=== PATIENT | male | born 1950 | race Caucasian/White ===

== ENCOUNTER 2017-02-24 09:17 | Inpatient (IN) | payer BC ==
[~2017-02-24] VITALS: Ht 180.3 cm; Wt 90.4 kg
[~2017-02-24 09:17] MED LIST: AMLO-145 PO; CLON-412 PO; LEVE500T34 PO; TRAZ300T15 PO
[2017-02-24] MEDS ORDERED: SOD CHLORIDE 0.9% 1,000 ML IV STA (09:31)
[2017-02-24 09:52] LABS: ADD SCAN DIFF NO
[2017-02-24 09:53] LABS: BASOPHILS % 0.4 % (0.0-2.0); EOSINOPHILS # 0.4 10^3/ul (0.0-0.5); EOSINOPHILS % 4.4 % (0.0-7.0); HEMATOCRIT 26.7 % (42.0-52.0); HEMOGLOBIN 8.7 g/dl (14.0-18.0); LYMPHOCYTES % 20.3 % (15.0-51.0); MEAN CORPUSCULAR HEMOGLOBIN 30.3 pg (29.0-33.0); MEAN CORPUSCULAR HGB CONC 32.6 g/dl (32.0-37.0); MEAN PLATELET VOLUME 10.7 fl (7.4-10.4); MONOCYTE # 0.4 10^3/ul (0.3-0.9); MONOCYTES % 4.3 % (0.0-11.0); NEUTROPHIL # 6.9 10^3/ul (1.6-7.5); NEUTROPHILS % 70.3 % (39.0-77.0); PLATELET COUNT 266 10^3/UL (140-415); RED BLOOD COUNT 2.87 10^6/ul (4.70-6.10); RED CELL DISTRIBUTION WIDTH 14.1 % (11.5-14.5); WHITE BLOOD COUNT 9.8 10^3/ul (4.8-10.8)
[2017-02-24 10:12] LABS: ALANINE AMINOTRANSFERASE 23 IU/L (13-69); ALBUMIN 5.2 g/dl (3.3-4.9); ALBUMIN/GLOBULIN RATIO 1.67; ALKALINE PHOSPHATASE 155 IU/L (42-121); ANION GAP 24 (8-16); ASPARTATE AMINO TRANSFERASE 13 IU/L (15-46); BLOOD UREA NITROGEN 56 mg/dl (7-20); CALCIUM 9.8 mg/dl (8.4-10.2); CARBON DIOXIDE 14 mmol/L (21-31); CHLORIDE 115 mmol/L (97-110); CREATININE 5.41 mg/dl (0.61-1.24); GLUCOSE 105 mg/dl (70-220); POTASSIUM 4.4 mmol/L (3.5-5.1); SODIUM 149 mmol/L (135-144); TOTAL PROTEIN 8.3 g/dl (6.1-8.1)
[2017-02-24 10:20] LABS: INR 0.96; PROTIME 12.8 Sec (12.2-14.2)
[2017-02-24 10:21] LABS: PARTIAL THROMBOPLASTIN TIME 33.2 Sec (25.0-35.0)
[2017-02-24 10:26] LABS: TROPONIN-I < 0.012 ng/ml (0.00-0.12)
[2017-02-24] MEDS ORDERED: ACETAMINOPHEN 325 MG TAB PO PRN (10:30)
[2017-02-24] MEDS ORDERED: ONDANSETRON 4 MG INJ IV PRN (10:30)
[2017-02-24] MEDS ORDERED: ALLO100T PO (10:36)
[2017-02-24] MEDS ORDERED: FURO20TA3 PO (10:37)
[2017-02-24] MEDS ORDERED: CLON-412 PO (10:38)
[2017-02-24] MEDS ORDERED: TRAM-40 PO (10:38)
[2017-02-24] MEDS ORDERED: TRAZ150T65 PO (10:39)
[2017-02-24] MEDS ORDERED: LEVE100018 PO (10:40)
[2017-02-24] MEDS ORDERED: SERT50TA PO (10:40)
[2017-02-24] MEDS ORDERED: LEVE500S9 PO (10:40)
[2017-02-24] MEDS ORDERED: FLO1 PO (10:41)
[2017-02-24] MEDS ORDERED: AMLO5TAB4 PO (10:41)
[2017-02-24] MEDS ORDERED: PANT40TA3 PO (10:41)
[2017-02-24 10:52] LABS: AADO2 Arterial 30.5 mmHg (7.0-24.0); Allen Test ACCEPTAB; Arterial Base Excess -11.6 mmol/L (-3.0-3); Arterial COHb 0.3 % (0.0-3.0); Arterial Fraction of Oxyhgb 94.2 % (93.0-99.0); Arterial HCO3 13.9 mmol/L (22.0-26.0); Arterial MetHb 0.3 % (0.0-1.5); Arterial Total Hemglobin 8.3 g/dl (12.0-18.0); MODE ROOM AIR
--- NOTE | 2017-02-24 11:26 | RADRPT ---
PROCEDURE: Retroperitoneal US. CLINICAL INDICATION: Renal insufficiency TECHNIQUE: Multiple sonographic images of the kidneys and retroperitoneum were obtained. The imag es were reviewed on a PACS workstation. COMPARISON: 03/28/2013 FINDINGS: The right kidney measures 11.0 cm. The left kidney measures 11.3 cm. There is increased echogenicity of the kidneys. There are multiple bilateral kidney cysts, the largest in the right kidney measures 2.3 cm and the l argest in the left kidney measures 3.9 cm. There is no evidence of hydronephrosis. The urinary bladder is normal. IMPRESSION: Echogenic kidneys, consistent with medical renal disease. Bilateral simple kidney cysts. No evidence of hydronephrosis. RPTAT: AA .Alex Jin MD, Date Time Electronically viewed and signed by .Alex Jin MD, on 02/24/2017 11:25 .S/
[2017-02-24] MEDS ORDERED: ONDANSETRON (ODT) 4 MG TAB ODT STA (11:37)
[2017-02-24] MEDS ORDERED: HYDROCODONE/APAP (10/325) TAB PO ONE (12:00)
[2017-02-24] MEDS ORDERED: traMADol 50 MG TAB PO PRN (12:00)
--- NOTE | 2017-02-24 12:09 | CONS ---
DATE OF ADMISSION: 02/24/2017 DATE OF CONSULTATION: 02/24/2017 TYPE OF CONSULTATION: Nephrology REFERRING PHYSICIAN: Misty Theodore MD Thank you very much for allowing me to evaluate this 66-year-old male admitted via the ER with worse trell renal function. HISTORICAL EVENTS: As you well know, this patient has been under my care at least for the last 8 ye ars with respect to progressive impairment of renal function. He was last seen by me on 02/10/2017 and at that time indicated that he had changed his insurance plan to [employer] and that Dr. Nikhil ortega would be caring for him. When seeing him on the 02/10/2017, he indicated he had moderate urina ry frequency without dysuria. Denied flank pain, fever or chills. Denied cough, wheezing or shortn ess of breath, lightheadedness or dizziness. Of note was that laboratory studies that I had obtaine d in the past, in 04/2016 and at that time his BUN was 56, creatinine was 3.5. Also, at that time h is hematocrit was 31.8. Subsequent to my exam and evaluation, he did obtain followup laboratory richie dies on 02/18/2017 and at that time his BUN was 77, creatinine was 5.15. Iron studies were unreveal ing. Hematocrit was 24.3. It is because of the change in his renal function that hospitalization w as recommended. He has had no symptoms of gastrointestinal bleeding. Has not been taking any nonst eroidals. He denies fever or chills. Urinary frequency has remained problematic. PRESENT MEDICATIONS: Include: 1. Florinef 0.1 mg per day. 2. Vitamin D3 2000 units per day. 3. Multivite 1 per day. 4. Furosemide 20 mg every other day. 5. B12 1000 mg per day. 6. Folic acid 1 mg per day. 7. Amlodipine 5 mg per day. 8. Protonix 40 mg per day. 9. Keppra 500 mg t.i.d. 10. Allopurinol 100 mg per day. 11. Klonopin 1 mg at night. 12. Sertraline 25 mg 2 tablets daily. 13. Trazodone 150 mg at night. 14. Tramadol 50 mg t.i.d. PAST MEDICAL HISTORY: Includes: 1. 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 His creatinine was 2.0 in 04/2002. Repeat imaging studies had revealed no obstruction. 2. Hypertension of at least 12 to 15 years' duration. 3. Depression. 4. History of epididymitis. 5. Last colonoscopy in 1997 recommended he obtain the same in 11/2015. This was not obtained. 6. History of BPH. 7. History of testosterone deficiency. The patient elected not to proceed with either transdermal or parenteral testosterone. 8. Anemia secondary to chronic renal insufficiency. 9. Prior history of chronic alcoholism. 10. Seizure disorder with last MRI obtained in 07/2013. This is secondary to tuberous sclerosis. 11. History of hyperkalemia not being able to tolerate JOHN or ARBs or beta blockers. 12. Secondary hyperparathyroidism. 13. Known fatty liver. 14. History of gout, now quiescent. 15. Traumatic fracture of the right humerus. 16. Peripheral neuropathy secondary to alcohol and fracture of the left humerus related to a fall i n 12/2016. ALLERGIES: NONE. FAMILY HISTORY: Mom at 88 related to old age. Brother of amoebic dysentery, he was retar ded. SOCIAL HISTORY: Has a life partner. PHYSICAL EXAMINATION: GENERAL: Chronically ill male. VITAL SIGNS: Blood pressure 124/78, respirations were 18, he was afebrile. EYES: Extraocular muscles were full. NOSE, MOUTH, AND THROAT: Normal. NECK: Supple. There was no jugular venous distention, thyroid enlargement or adenopathy. LUNGS: Clear. HEART: Rhythm regular, I/ systolic murmur. No third or fourth sound. ABDOMEN: Nontender. Liver and spleen were not palpable. There was no tenderness. EXTREMITIES: Brawny edema. Peripheral pulses were reduced. NEUROLOGIC: No lateralizing motor weakness. 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 PLAN: Postvoid bladder ultrasound, renal ultrasound, hydration. Observe renal function. If no sig nificant change, will need temporary and permanent access prior to discharge. GI evaluation will be needed if stools are negative for occult blood. Procrit will be started and we will follow with yo sravanthi. Dictated By: FRED NICE/FOZIA Conf#: [id number] DID#: [id number]
--- NOTE | 2017-02-24 12:26 | ERA ---
ER Documentation Chief Complaint Date/Time DATE: 02/24/17 TIME: 12:23 Chief Complaint ELEVATED BUN/CREA, LOW H/H, WEAKNESS, DIZZINESS HPI Patient is a 66-year-old male with hypertension who presents with "kidney failure and chronic anemia". The patient was sent by his doctor Dr. Berumen and Dr. Anthony for admission. The patient will need dialysis. The patient feels weak dizzy and "lethargic". He says the symptoms come and go every 2-3 years. Upon review of old medical records the patient had one previous visit to the ER in 2007. ROS All systems reviewed and are negative except as per history of present illness. Medications Home Meds Reported Medications Fludrocortisone* (Florinef*) 0.1 Mg Tab, 0.1 MG PO DAILY, TAB 02/24/17 Pantoprazole* (Protonix*) 40 Mg Tablet.dr, 40 MG PO DAILY, TAB 02/24/17 Amlodipine Besylate* (Norvasc*) 5 Mg Tablet, 5 MG PO DAILY, TAB 02/24/17 Sertraline Hcl* (Zoloft*) 50 Mg Tablet, 50 MG PO QHS, #30 TAB 02/24/17 Levetiracetam* (Keppra*) 1,000 Mg Tablet, 1000 MG PO QHS, TAB 02/24/17 Levetiracetam* (Keppra*) 500 Mg/5 Ml Solution, 500 MG PO QAM, BOTTLE 02/24/17 Trazodone Hcl* (Trazodone Hcl*) 150 Mg Tablet, 150 MG PO QHS, #30 TAB 02/24/17 Clonazepam* (Klonopin*) 1 Mg Tablet, 1 MG PO QHS, TAB 02/24/17 Tramadol Hcl* (Ultram*) 50 Mg Tablet, 50 MG PO Q6H Y for PAIN, TAB 02/24/17 Furosemide* (Furosemide*) 20 Mg Tablet, 20 MG PO EVERY TUESDAY, #60 TAB 02/24/17 Allopurinol* (Allopurinol*) 100 Mg Tablet, 100 MG PO DAILY, TAB 02/24/17 Discontinued Reported Medications Clonazepam* (Klonopin*) 1 Mg Tablet, 1 MG PO HS 03/28/13 Levetiracetam* (Keppra XR*) 500 Mg Tab.sr.24h, 500 MG PO BID 03/28/13 Amlodipine Besylate* (Amlodipine Besylate*) 5 Mg Tablet, 5 MG PO HS 03/28/13 Trazodone Hcl* (Trazodone Hcl*) 300 Mg Tablet, 300 MG PO HS 03/28/13 Allergies Allergies: Coded Allergies: No Known Allergy (Verified , 02/24/17) PMhx/Soc Medical and Surgical Hx: pt denies Medical Hx, pt denies Surgical Hx History of Surgery: Yes (LIZETH FOOT SURGERY( WEB FOOT)) Anesthesia Reaction: No Hx Neurological Disorder: No Hx Respiratory Disorders: No Hx Cardiac Disorders: Yes (HTN) Hx Psychiatric Problems: No Hx Miscellaneous Medical Probl: Yes (EPILEPSY) Hx Alcohol Use: No Hx Substance Use: No Hx Tobacco Use: No Smoking Status: Never smoker FmHx Family History: No diabetes Physical Exam Vitals Vital Signs Date Time Temp Pulse Resp B/P Pulse Ox O2 Delivery O2 Flow Rate FiO2 02/24/17 11:40 57 18 130/81 98 Room Air 02/24/17 09:38 Nasal Cannula 02/24/17 09:21 97.2 92 17 172/84 98 Physical Exam Const: No acute distress Head: Atraumatic Eyes: Normal Conjunctiva ENT: Normal External Ears, Nose and Mouth. Neck: Full range of motion..~ No meningismus. Resp: Clear to auscultation bilaterally Cardio: Regular rate and rhythm, no murmurs Abd: Soft, non tender, non distended. Normal bowel sounds Skin: No petechiae or rashes Back: No midline or flank tenderness Ext: No cyanosis, or edema Neur: Awake with generalized weakness Result Diagram: 02/24/1740 02/24/17 0940 Results 24 hrs Laboratory Tests Test 02/24/17 09:40 02/24/17 10:37 White Blood Count 9.810^3/ul Red Blood Count 2.8710^6/ul Hemoglobin 8.7g/dl Hematocrit 26.7% Mean Corpuscular Volume 93.0fl Mean Corpuscular Hemoglobin 30.3pg Mean Corpuscular Hemoglobin Concent 32.6g/dl Red Cell Distribution Width 14.1% Platelet Count 37797^3/UL Mean Platelet Volume 10.7fl Neutrophils % 70.3% Lymphocytes % 20.3% Monocytes % 4.3% Eosinophils % 4.4% Basophils % 0.4% Nucleated Red Blood Cells % 0.0/100WBC Neutrophils # 6.910^3/ul Lymphocytes # 2.010^3/ul Monocytes # 0.410^3/ul Eosinophils # 0.410^3/ul Basophils # 0.010^3/ul Nucleated Red Blood Cells # 0.010^3/ul Prothrombin Time 12.8Sec Prothrombin Time Ratio 1.0 INR International Normalized Ratio 0.96 Activated Partial Thromboplast Time 33.2Sec Sodium Level 149mmol/L Potassium Level 4.4mmol/L Chloride Level 115mmol/L Carbon Dioxide Level 14mmol/L Anion Gap 24 Blood Urea Nitrogen 56mg/dl Creatinine 5.41mg/dl Glucose Level 105mg/dl Calcium Level 9.8mg/dl Total Bilirubin 0.0mg/dl Direct Bilirubin 0.00mg/dl Indirect Bilirubin 0.0mg/dl Aspartate Amino Transf (AST/SGOT) 13IU/L Alanine Aminotransferase (ALT/SGPT) 23IU/L Alkaline Phosphatase 155IU/L Troponin I < 0.012ng/ml Total Protein 8.3g/dl Albumin 5.2g/dl Globulin 3.10g/dl Albumin/Globulin Ratio 1.67 Blood Gas Specimen Source Blood arterial Arterial Blood Date Drawn 02/24/2017 10:42:18 AM Arterial Blood pH (Temp corrected) 7.289 Arterial Blood pCO2 (Temp correct) 29.6mmhg Arterial Blood pO2 (Temp corrected) 83.8mmHG Arterial Blood HCO3 13.9mmol/L Arterial Blood Base Excess -11.6mmol/L Arterial Blood Oxygen Saturation 94.8mmHG Stevan Test ACCEPTAB Arterial Blood Gas Puncture Site Right Radial Arterial Blood Carboxyhemoglobin 0.3% Arterial Blood Methemoglobin 0.3% Blood Gas A-a O2 Differential 30.5mmHg Oxyhemoglobin Percent 94.2% Total Hemoglobin 8.3g/dl Blood Gas Temperature 37.0C Blood Gas Modality ROOM AIR FiO2 21.0% Blood Gas Critical Value Read Back DR. CHUN Blood Gas Notified Whom Alexandra Blood Gas Notified Time 02/24/2017 10:52:21 AM Current Medications Medications (Trade) Dose Ordered Sig/Samir Route PRN Reason Start Time Stop Time Status Last Admin Dose Admin Sodium Chloride (NS) 1,000 ml @ 1,000 mls/hr Q1H STAT IV 02/24/17 09:31 02/24/17 10:30 DC 02/24/17 09:45 Ondansetron HCl (Zofran Inj) 4 mg BRIDGE ORDER PRN IV NAUSEA AND/OR VOMITING 02/24/17 10:30 02/25/17 10:29 Acetaminophen (Tylenol Tab) 650 mg ER BRIDGE PRN PO MILD PAIN/FEVER 02/24/17 10:30 02/25/17 10:29 Acetaminophen/ Hydrocodone Bitart ([place] (10/325)) 1 tab ONCE ONCE PO 02/24/17 12:00 02/24/17 12:01 DC 02/24/17 11:49 Ondansetron HCl (Zofran Odt) 4 mg ONCE STAT ODT 02/24/17 11:37 02/24/17 11:38 DC 02/24/17 11:50 Sodium Bicarbonate 50 ml 50 ml Q2 IV 02/24/17 13:00 02/24/17 15:01 Sodium Bicarbonate/ Dextrose (Na Bicarb/D5W) 1,000 ml @ 125 mls/hr Q8H IV 02/24/17 13:00 Epoetin Eris (Epogen (Esrd)) 10,000 units MoWeFr@17 SC 02/25/17 17:00 Allopurinol (Zyloprim) 100 mg DAILY PO 02/25/17 09:00 Amlodipine Besylate (Norvasc) 5 mg DAILY PO 02/24/17 12:00 Clonazepam (Klonopin) 1 mg QHS PO 02/24/17 21:00 Pantoprazole (Protonix Tab) 40 mg DAILY PO 02/24/17 12:00 Sertraline HCl (Zoloft) 50 mg QHS PO 02/24/17 21:00 Tramadol HCl (Ultram) 50 mg Q6H PRN PO PAIN 02/24/17 12:00 Trazodone HCl (Desyrel) 150 mg QHS PO 02/24/17 21:00 Levetiracetam (Keppra) 500 mg TID PO 02/24/17 13:00 Multivit/Ca Carb/ B Cmplx/FA/Prenat (Ronda-Joo) 1 tab DAILY PO 02/25/17 09:00 Procedures/MDM Patient is a 66-year-old male who presents with acute renal failure and acidosis. He potentially will require dialysis. The patient will be given 1 L normal saline bolus for fluid resuscitation in case this is a prerenal acute renal failure. The patient will be admitted to the care of Dr. Theodore as the patient has [place] insurance. Dr. Anthony has seen the patient at the bedside as well and will decide if the patient requires dialysis. ABG was done which shows acidosis. Bicarbonate is low at 14. The patient has anemia but does not require transfusion at this time. Critical Care: Time: 35 minutes excluding all billable procedures. Treatments/Evaluations: Close monitoring and treatment of unstable vital signs, cardiorespiratory, and neurologic status, while maintaining tight balance of fluid, respiratory, and cardiac interventions. Departure Diagnosis: Primary Impression: Anemia Qualified Code: D64.9 - Anemia, unspecified type Additional Impressions: Acute renal failure Qualified Code: N17.9 - Acute renal failure, unspecified acute renal failure type Acidosis Condition: QUEENIE Medreos MD Feb 24, 2017 12:26
[2017-02-24] MEDS: PANTOPRAZOLE (EC) 40 MG TAB PO SCH (12:49)
[2017-02-24] MEDS ORDERED: SODIUM BICARBONATE IV SCH (13:00)
[2017-02-24] MEDS ORDERED: DEXTROSE 5% IV SCH (13:00)
[2017-02-24] MEDS: AMLODIPINE 5 MG TAB PO SCH (13:05)
[2017-02-24] MEDS: NA BICARBONATE 8.4% 50 ML SYG IV SCH ×2 (13:28→15:42)
[2017-02-24] MEDS: LEVETIRACETAM 500 MG TAB PO SCH ×2 (13:42→21:46)
--- NOTE | 2017-02-24 13:54 | RADRPT ---
PROCEDURE: Urinary bladder ultrasound . CLINICAL INDICATION: Urinary retention TECHNIQUE: Multiple sonographic images of the pelvis were obtained. The images were reviewed on a PACS workstation. COMPARISON: 02/24/2017 FINDINGS: The urinary bladder bladder is normal in size, contour and wall thickness. No evidence of bladder st ones. No evidence of a bladder mass. The ureteral jets were not visualized. There is a prevoid volume of 204 cc and there is a post void volume of 104 cc. RPTAT: AA IMPRESSION: Large postvoid residual of approximately 51%. .Alex Jin MD, MD Date Time Electronically viewed and signed by .Alex Jin MD, on 02/24/2017 13:54 .S/
[2017-02-24] MEDS: SODIUM BICARBONATE IV SCH ×2 (14:33→22:35)
[2017-02-24] MEDS: DEXTROSE 5% IV SCH ×2 (14:33→22:35)
--- NOTE | 2017-02-24 15:07 | HP ---
DATE OF ADMISSION: 02/24/2017 STAFF DEVELOPMENT NURSE ON THIS ADMISSION: Dr. Anthony from nephrology CHIEF COMPLAINT ON ADMISSION: The patient was sent by primary care physician with abnormal labs. HISTORY OF PRESENT ILLNESS: This is a 66-year-old male with a known advanced chronic kidney disease secondary to tuberous sclerosis and likely secondary focal sclerosis, according to Dr. Anthony. Acc ording to the patient's primary allied health teacher, Dr. Anthony, his renal disease has been progressing ove r the past few years. The patient has seen Dr. Zayas as an outpatient who sent him over to the [facility] department due to abnormal labs. In the emergency department, the patient was found to have a chronic anemia, hemoglobin is at 8.7. He also has significant metabolic acidosis with a pH of 7.2 and bicarbonate at 14. His potassium level is stable. BUN is in the 50s. The patient himself repo rts worsening generalized weakness over the past month. He was having some nausea and anorexia over the past month also. He denies any fevers, chills. He denies any focal weakness. He denies any m ashely, hematemesis, or hematochezia. He reports that he has urinary frequency and does not empty hi s bladder effectively. His friend at the bedside is very thorough, apparently the patient takes dayron roximately 3 L of fluid intake and would only have approximately 700 mL output over a period of [address] Anthony has seen the patient. At this point, he will treat him conservatively. He has st arted bicarbonate drip. He is being worked up for his anemia, and his renal function will be monito red. If it seems like the patient is not recovering from this worsening of his renal function, the patient may end up needing dialysis. He is admitted in stable condition to a medical/surgical bed. ALLERGIES: NO KNOWN ALLERGIES. PAST MEDICAL HISTORY: Includes: 1. Chronic kidney disease has been progressing secondary to tuberous sclerosis and likely focal scl erosis, according to Dr. Anthony. 2. Hypertension. 3. Major depressive disorder. 4. Benign prostatic hypertrophy. 5. Chronic anemia secondary to chronic kidney disease. 6. Seizure disorder. 7. Secondary hyperparathyroidism. 8. Hepatosteatosis Actos. 9. Gout. 10. Peripheral neuropathy. 11. Previous history of heavy alcohol use. PAST SURGICAL HISTORY: 1. Status post colonoscopy in 1997 and apparently he was due to another one in 2016, but he did not get it. 2. Status post traumatic fracture of the right humerus. SOCIAL HISTORY: The patient lives with his life partner who was at the bedside. He is currently no t actively drinking or using tobacco. REVIEW OF SYSTEMS: As per HPI. OUTPATIENT MEDICATIONS: 1. Florinef 0.1 mg daily. 2. Vitamin D3 2000 units daily. 3. Multivitamin 1 tab p.o. daily. 4. Furosemide 20 mg p.o. q.48 hours. 5. Vitamin B12 1000 mg p.o. daily. 6. Folic acid 1 mg p.o. daily. 7. Amlodipine 5 mg p.o. daily. 8. Protonix 40 mg p.o. daily. 9. Keppra 500 mg p.o. t.i.d. 10. Allopurinol 100 mg p.o. daily. 11. Klonopin 1 mg p.o. at bedtime. 12. Zoloft 50 mg p.o. daily. 13. Trazodone 150 mg p.o. at bedtime. 14. Tramadol 50 mg p.o. t.i.d. PHYSICAL EXAMINATION: VITAL SIGNS: Temperature is 97.2, pulse of 57, respiratory rate of 18, blood pressure is 130/81 whi ch is down from 172/84. The patient is saturating 98% on room air. GENERAL: He is alert. He is oriented x3 at least, very pleasant gentleman. He does look chronical ly ill, and sometimes asked to repeat the question. He seems to be losing his focus on and off. HEENT: Pupils are equally round and reactive to light. Extraocular muscles are intact. Anicteric sclerae. NECK: No JVD, no thyromegaly noted. HEART: Regular rate and rhythm. LUNGS: Clear to auscultation bilaterally. ABDOMEN: Soft, nontender, nondistended. Bowel sounds are present. EXTREMITIES: No clubbing or cyanosis. No significant edema detected. SKIN: He does have some brown spots throughout and some areas of mild ecchymosis can be seen. NEUROLOGIC: He is grossly intact. There is no focal weakness detected. Again, from the mental sta tus standpoint, the patient seems to be losing his focus on and off, but easily redirectable. LABORATORY DATA: White blood cell count is 9.8, hemoglobin is 8.7. Back in 2007, his baseline hemo globin was between 9.3 and 8.9, platelet count of 266. Chemistry with a sodium of 149, potassium 4. 4, chloride of 115, bicarbonate of 14, BUN 56, creatinine 5.41, glucose of 105, calcium of 9.8. LFT s are mostly normal except for an alkaline phosphatase of 155. Troponin is less than 0.0120, total protein is 8.3, albumin is 5.2. INR was 0.96, PT 33.2, PTT 12.8. ABG today shows a pH of 7.28 with a pCO2 of 29.6 and a pO2 of 83.8. RADIOLOGICAL DATA: The patient had a renal ultrasound that showed echogenic kidneys consistent with medical renal disease, bilateral simple kidney cyst, no evidence of hydronephrosis, and he also had a pelvic ultrasound that showed a large postvoid residual of approximately 51%. ASSESSMENT AND PLAN: This is a 66-year-old male with: 1. Progression of his chronic kidney disease, now presenting with metabolic acidosis, anemia of chr onic disease, and some lethargy and nausea. Dr. Anthony, his outpatient allied health teacher, has seen him i npatient. Based on the pH of 7.28, low bicarbonate of 14, the patient has been started on a bicarbo sergio drip for hydration purposes and correcting his metabolic acidosis. His blood pressure is stabl e. The other electrolytes are fairly stable. Per Dr. Anthony, he will review and follow the patient and see if he needs, at this point, initiation of dialysis or if he is able to hold off. 2. Anemia of chronic disease, workup in progress. Most likely secondary to chronic kidney disease; therefore, Dr. Anthony has started the patient on Epogen already. Additional serologies have been o rdered along with laboratory data. 3. Hypertension. Continue Norvasc. 4. Major depressive disorder. Continue outpatient medication. 5. Seizure disorder. Continue outpatient medication. 6. Gout. Continue allopurinol. 7. Peripheral neuropathy. Continue Ultram as needed for pain. 8. Gastroesophageal reflux disease. Continue Protonix. 9. Prophylaxis. The patient already on Protonix and will add SCDs for DVT prophylaxis. DISPOSITION: The patient is admitted to a medical/surgical bed and Dr. Romoff is following the heather ent as allied health teacher. Dictated By: ROBERT NANCE/FOZIA Conf#: [id number] DID#: [id number]
[2017-02-24 19:56] VITALS: Ht 180.3 cm; Wt 90.4 kg
[2017-02-24 19:58] VITALS: BP 140/74; RESP 18
[2017-02-24 20:30] VITALS: PULSE 61
[2017-02-24] MEDS: traZODone 50 MG TAB PO SCH (21:47)
[2017-02-24] MEDS: SERTRALINE 50 MG TAB PO SCH (21:47)
[2017-02-24] MEDS: clonAZEPAM 0.5 MG TAB PO SCH (21:47)
[2017-02-25 04:43] LABS: ADD UMIC YES; URINE BILIRUBIN (Dip) NEGATIVE (NEGATIVE); URINE BLOOD (Dip) TRACE (NEGATIVE); URINE COLOR LT. YELLOW (YELLOW); URINE GLUCOSE (Dip) NEGATIVE (NEGATIVE); URINE KETONES (Dip) NEGATIVE (NEGATIVE); URINE LEUKOCYTE ESTERASE (Dip) 1+ (NEGATIVE); URINE NITRITE (Dip) NEGATIVE (NEGATIVE); URINE TOTAL PROTEIN (Dip) 2+ (NEGATIVE); URINE UROBILINOGEN (Dip) 0.2 E.U./dL (0.1-1.0)
[2017-02-25 05:25] LABS: SQUAMOUS EPITHELIAL CELL,UR FEW
[2017-02-25 05:26] LABS: BACTERIA,URINE MANY
[2017-02-25 05:28] LABS: PROTEIN/CREAT RATIO 3.67 RATIO
[2017-02-25] MEDS: SODIUM BICARBONATE IV SCH ×2 (05:44→06:10)
[2017-02-25] MEDS: DEXTROSE 5% IV SCH ×2 (05:44→06:10)
[2017-02-25 06:53] LABS: ADD SCAN DIFF NO
[2017-02-25 06:58] LABS: BASOPHILS % 0.4 % (0.0-2.0); EOSINOPHILS # 0.4 10^3/ul (0.0-0.5); HEMOGLOBIN 7.1 g/dl (14.0-18.0); LYMPHOCYTES # 2.3 10^3/ul (0.8-2.9); LYMPHOCYTES % 30.4 % (15.0-51.0); MEAN CORPUSCULAR HGB CONC 33.8 g/dl (32.0-37.0); MEAN CORPUSCULAR VOLUME 91.7 fl (82.0-101.0); MEAN PLATELET VOLUME 11.4 fl (7.4-10.4); MONOCYTE # 0.4 10^3/ul (0.3-0.9); MONOCYTES % 5.4 % (0.0-11.0); NEUTROPHIL # 4.5 10^3/ul (1.6-7.5); NEUTROPHILS % 58.4 % (39.0-77.0); PLATELET COUNT 221 10^3/UL (140-415); RED BLOOD COUNT 2.29 10^6/ul (4.70-6.10); RED CELL DISTRIBUTION WIDTH 13.7 % (11.5-14.5); WHITE BLOOD COUNT 7.6 10^3/ul (4.8-10.8)
[2017-02-25 07:15] LABS: IRON 51 ug/dl (35-150)
[2017-02-25 07:23] LABS: CALCIUM 8.9 mg/dl (8.4-10.2); CREATININE 4.57 mg/dl (0.61-1.24); MAGNESIUM 1.6 mg/dl (1.7-2.5); PHOSPHORUS 4.7 mg/dl (2.5-4.9); POTASSIUM 3.8 mmol/L (3.5-5.1)
[2017-02-25 07:24] LABS: TOTAL IRON BINDING CAPACITY 251 ug/dl (241-421)
[2017-02-25 07:25] VITALS: BP 124/67; RESP 18
--- NOTE | 2017-02-25 07:34 | RADRPT ---
PROCEDURE: Right Upper Quadrant Ultrasound. CLINICAL INDICATION: ELEV ALKPTASE TECHNIQUE: Multiple real-time images were acquired of the patient's right upper quadrant abdomen a nd retroperitoneum utilizing a high resolution transducer. COMPARISON: None FINDINGS: The liver measures 15.4 cm, and demonstrates normal echogenicity. The main portal vein is patent wit h proper directional flow. There is no intrahepatic biliary ductal dilatation. The extrahepatic comm on bile duct measures 7 mm. The gallbladder is without stones, wall thickening, or pericholecystic fluid. The pancreas is not well visualized. The spleen measures 10.1 cm in diameter. IMPRESSION: No cholelithiasis or acute cholecystitis. Normal CBD. The liver and spleen are unremarkable. RPTAT: EE Physician Torey Date Time Electronically viewed and signed by Physician Torey on 02/25/2017 07:34 /
--- NOTE | 2017-02-25 07:55 | CONS ---
Date/Time of Note Date/Time of Note DATE: 02/25/17 TIME: 07:52 Assessment/Plan Assessment/Plan Additional Assessment/Plan 1. Renal fx is better with hydration suggesting vol contraction (in part ? gi bleeding), no need for HD now. 2. Inc anemia, stool ob pending, will transfuse 2units of packed cells, would have GI eval 3. Mild post void residual and urinary frequency, will add flomax, no obstruction is present 4. Hx traumatic left shoulder fx, repeat xray ordered, consider ortho follow up. 5. Documented tuber sclerosis 6. Mild hypernatremia, IV adjusted. Consultation Date/Type/Reason Admit Date/Time Feb 24, 2017 at 10:28 Initial Consult Date Detailed Summary Respiratory: No shortness of breath Cardiovascular: No chest pain, No lightheadedness Gastrointestinal: no complaints Genitourinary: other (urine frequency without dysuria) Exam/Review of Systems Vital Signs Vitals Vital Signs Date Time Temp Pulse Resp B/P Pulse Ox O2 Delivery O2 Flow Rate FiO2 02/24/17 20:30 61 02/24/17 19:58 98.4 18 140/74 96 02/24/17 18:28 Room Air Intake and Output 02/24/17 02/24/17 02/25/17 15:00 23:00 07:00 Intake Total 1480 ml Output Total 400 ml Balance 1080 ml Exam Neck: non-tender, No jvd Respiratory: clear to auscultation Cardiovascular: regular rate and rhythm Gastrointestinal: soft Extremities: No edema (and no calf tend) Results Result Diagram: 02/25/17 0450 02/25/17 0450 Results 24 hrs Laboratory Tests Test 02/24/17 09:40 02/24/17 10:37 02/25/17 03:35 02/25/17 04:50 White Blood Count 9.8 7.6 # Red Blood Count 2.87 L 2.29 #L Hemoglobin 8.7 L 7.1 L Hematocrit 26.7 L 21.0 #L Mean Corpuscular Volume 93.0 91.7 Mean Corpuscular Hemoglobin 30.3 31.0 Mean Corpuscular Hemoglobin Concent 32.6 33.8 Red Cell Distribution Width 14.1 13.7 Platelet Count 266 221 Mean Platelet Volume 10.7 H 11.4 H Neutrophils % 70.3 58.4 Lymphocytes % 20.3 30.4 Monocytes % 4.3 5.4 Eosinophils % 4.4 5.0 Basophils % 0.4 0.4 Nucleated Red Blood Cells % 0.0 0.0 Neutrophils # 6.9 4.5 Lymphocytes # 2.0 2.3 Monocytes # 0.4 0.4 Eosinophils # 0.4 0.4 Basophils # 0.0 0.0 Nucleated Red Blood Cells # 0.0 0.0 Prothrombin Time 12.8 Prothrombin Time Ratio 1.0 INR International Normalized Ratio 0.96 Activated Partial Thromboplast Time 33.2 Sodium Level 149 H 146 H Potassium Level 4.4 3.8 Chloride Level 115 H 112 H Carbon Dioxide Level 14 L 25 # Anion Gap 24 H 13 # Blood Urea Nitrogen 56 H 50 H Creatinine 5.41 H 4.57 H Glucose Level 105 101 Calcium Level 9.8 8.9 Total Bilirubin 0.0 L Direct Bilirubin 0.00 Indirect Bilirubin 0.0 Aspartate Amino Transf (AST/SGOT) 13 L Alanine Aminotransferase (ALT/SGPT) 23 Alkaline Phosphatase 155 H Troponin I < 0.012 Total Protein 8.3 H Albumin 5.2 H Globulin 3.10 Albumin/Globulin Ratio 1.67 Blood Gas Specimen Source Blood arterial Arterial Blood Date Drawn 02/24/2017 10:42:18 AM Arterial Blood pH (Temp corrected) 7.289 *L Arterial Blood pCO2 (Temp correct) 29.6 L Arterial Blood pO2 (Temp corrected) 83.8 Arterial Blood HCO3 13.9 L Arterial Blood Base Excess -11.6 L Arterial Blood Oxygen Saturation 94.8 L Stevan Test ACCEPTAB Arterial Blood Gas Puncture Site Right Radial Arterial Blood Carboxyhemoglobin 0.3 Arterial Blood Methemoglobin 0.3 Blood Gas A-a O2 Differential 30.5 H Oxyhemoglobin Percent 94.2 Total Hemoglobin 8.3 L Blood Gas Temperature 37.0 Blood Gas Modality ROOM AIR FiO2 21.0 Blood Gas Critical Value Read Back DR. CHUN Blood Gas Notified Whom Alexandra Blood Gas Notified Time 02/24/2017 10:52:21 AM Urine Color LT. YELLOW Urine Clarity CLEAR Urine pH 6.0 Urine Specific [place] 1.015 Urine Ketones NEGATIVE Urine Nitrite NEGATIVE Urine Bilirubin NEGATIVE Urine Urobilinogen 0.2 E.U./dL Urine Leukocyte Esterase 1+ H Urine Microscopic RBC 2-5 Urine Microscopic WBC >50 Urine Squamous Epithelial Cells FEW Urine Bacteria MANY Urine Hemoglobin TRACE Urine Random Creatinine 71.75 Urine Random Sodium 100 H Urine Protein/Creatinine Ratio 3.67 Urine Glucose NEGATIVE Urine Total Protein 264.0 H Phosphorus Level 4.7 Magnesium Level 1.6 L Iron Level 51 Total Iron Binding Capacity 251 Percent Iron Saturation 20 L Prostate Specific Antigen 0.6 Medications Medications Current Medications Epoetin Eris (Epogen (Esrd)) 10,000 units MoWeFr@17 SC ; Start 02/25/17 at 17:00 Allopurinol (Zyloprim) 100 mg DAILY PO ; Start 02/25/17 at 09:00 Amlodipine Besylate (Norvasc) 5 mg DAILY PO Last administered on 02/24/17 13:05 ; Admin Dose 5 MG; Start 02/24/17 at 12:00 Clonazepam (Klonopin) 1 mg QHS PO Last administered on 02/24/17 21:47; Admin Dose 1 MG; Start 02/24/17 at 21:00 Pantoprazole (Protonix Tab) 40 mg DAILY PO Last administered on 02/24/17 12:49 ; Admin Dose 40 MG; Start 02/24/17 at 12:00 Sertraline HCl (Zoloft) 50 mg QHS PO Last administered on 02/24/17 21:47; Admin Dose 50 MG; Start 02/24/17 at 21:00 Tramadol HCl (Ultram) 50 mg Q6H PRN PO PAIN; Start 02/24/17 at 12:00 Trazodone HCl (Desyrel) 150 mg QHS PO Last administered on 02/24/17 21:47; Admin Dose 150 MG; Start 02/24/17 at 21:00 Levetiracetam (Keppra) 500 mg TID PO Last administered on 02/24/17 21:46; Admin Dose 500 MG; Start 02/24/17 at 13:00 Multivit/Ca Carb/ B Cmplx/FA/Prenat 1 tab 1 tab DAILY PO ; Start 02/25/17 at 09: 00 Sodium Bicarbonate/ Dextrose (Na Bicarb/D5W) 1,000 ml @ 125 mls/hr Q8H IV Last administered on 02/25/17 06:10; Admin Dose 125 MLS/HR; Start 02/24/17 at 13: 44 Tamsulosin HCl 0.4 mg 0.4 mg HS PO ; Start 02/25/17 at 21:00 Magnesium Sulfate/ Sodium Chloride (Magnesium Sulfate/NS) 106 ml @ 35.333 mls/ hr ONCE ONCE IVPB ; Start 02/25/17 at 09:00; Stop 02/25/17 at 11:59 FRED CARMONA MD Feb 25, 2017 07:55
[2017-02-25] MEDS: PANTOPRAZOLE (EC) 40 MG TAB PO SCH ×2 (08:57→17:51)
[2017-02-25] MEDS: ALLOPURINOL 100 MG TAB PO SCH (08:57)
[2017-02-25] MEDS: MULTIVIT/CA CARB/B CMPLX/FA TAB PO SCH (08:57)
[2017-02-25] MEDS: AMLODIPINE 5 MG TAB PO SCH (08:57)
[2017-02-25] MEDS: LEVETIRACETAM 500 MG TAB PO SCH ×3 (08:57→21:02)
[2017-02-25] MEDS ORDERED: MAGNESIUM SULFATE 3 GM in SOD CHLORIDE 0.9% 100 ML IVPB ONE (09:00)
[2017-02-25] MEDS: SOD CHLORIDE 0.45% 1,000 ML IV SCH ×2 (09:06→21:20)
--- NOTE | 2017-02-25 09:53 | RADRPT ---
PROCEDURE: XR right shoulder. CLINICAL INDICATION: Fracture follow-up TECHNIQUE: AP, Internal and external rotation views of the right shoulder were performed. COMPARISON: None FINDINGS: There is normal osseous mineralization and alignment. A nondisplaced fracture of the left humeral metadiaphysis is identified with likely surrounding call us formation. There are normal joints without evidence of arthritis or dislocation. The soft tissues are unremarkable. RPTAT: AA IMPRESSION: Nondisplaced proximal left humerus fracture with likely overlying callous formation indicating heali ng. Physician Torey Date Time Electronically viewed and signed by Amadou Harris Physician on 02/25/2017 09:52 RA/
[2017-02-25 10:05] VITALS: BP 139/70; PULSE 54; RESP 19
[2017-02-25 11:18] LABS: INR 1.14; PROTIME 14.6 Sec (12.2-14.2); PT RATIO 1.1
[2017-02-25 11:19] LABS: PARTIAL THROMBOPLASTIN TIME 32.7 Sec (25.0-35.0)
--- NOTE | 2017-02-25 12:09 | CONS ---
Date/Time of Note Date/Time of Note DATE: 02/25/17 TIME: 11:53 Assessment/Plan Assessment/Plan Additional Assessment/Plan Assessment * Anemia Acute vs chronic R/O upper GI VS Lower GI bleed * Chronic kidney disease * Hypertension Plan * Monitor Hemoglobin and hematocrit q6 and transfuse 1 unit PRBC hemoglobin <7.5 ,2 units PRBC hemoglobin <7 * EGD and colonoscopy risk and benefit explained to patient agreed with the planned procedure * PPI daily Consultation Date/Type/Reason Admit Date/Time Feb 24, 2017 at 10:28 Date of Consultation: Feb 25, 2017 Type of Consultation: Gastroenterology Reason for Consultation Anemia Referring Provider: ROBERT EDEN Hx of Present Illness 66 year old male with past medical history of chronic kidney disease, hypertension,depression,benign prostatic hypertrophy,seizure disorder and gout was sent from doctors office because on anemia.Patient denies any body weakness, melena,hematochezia,hematemesis,fever nor chest pain. Ultrasound of hepatobiliary tree No cholelithiasis or acute cholecystitis. Normal CBD.The liver and spleen are unremarkable.Latest hemoglobin on admission is 8.6 however dropping to 7.1 today.He is receiving blood transfusion presently ,denies any abdominal pain,melena nor hematochezia. I have explained to the patient the planned EGD and colonoscopy including risks and benefits of the procedure Constitutional: improved, no complaints Eyes: no complaints ENT: no complaints Respiratory: No shortness of breath Cardiovascular: No chest pain, No lightheadedness Gastrointestinal: no complaints Genitourinary: other (urine frequency without dysuria) Musculoskeletal: no complaints Skin: no complaints Neurologic: no complaints Endocrine: no complaints Lymphatic: no complaints Psychological: nl mood/affect, no complaints Immunologic: no complaints Past Medical History Medical History: hypertension, renal disease, other (depression,BPH) Past Surgical History Past Surgical Hx: no surgical history Family History Significant Family History: no pertinent family hx Social History Smoking Status: Never smoker Exam/Review of Systems Vital Signs Vitals Vital Signs Date Time Temp Pulse Resp B/P Pulse Ox O2 Delivery O2 Flow Rate FiO2 02/25/17 07:25 98.6 65 18 124/67 94 02/24/17 18:28 Room Air Intake and Output 02/24/17 02/24/17 02/25/17 15:00 23:00 07:00 Intake Total 1480 ml Output Total 400 ml Balance 1080 ml Exam Constitutional: alert, oriented, well developed Psych: nl mood/affect, no complaints Head: atraumatic, normocephalic Eyes: PERRL, nl conjunctiva, nl sclera ENMT: nl nasal mucosa & septum Neck: non-tender, supple Respiratory: clear to auscultation, normal air movement Cardiovascular: nl pulses, regular rate and rhythm Gastrointestinal: nl liver, spleen, non-tender, soft Musculoskeletal: nl extremities to inspection, nl gait and stance Extremities: normal pulses Neurological: nl mental status, nl speech, nl strength Skin: nl turgor, No rash or lesions Lymph: nl lymph nodes Results Result Diagram: 02/25/17 04502/25/170 Results 24 hrs Laboratory Tests Test 02/25/17 03:35 02/25/17 04:20 02/25/17 04:50 02/25/17 10:15 Urine Color LT. YELLOW Urine Clarity CLEAR Urine pH 6.0 Urine Specific [place] 1.015 Urine Ketones NEGATIVE Urine Nitrite NEGATIVE Urine Bilirubin NEGATIVE Urine Urobilinogen 0.2 E.U./dL Urine Leukocyte Esterase 1+ H Urine Microscopic RBC 2-5 Urine Microscopic WBC >50 Urine Squamous Epithelial Cells FEW Urine Bacteria MANY Urine Hemoglobin TRACE Urine Random Creatinine 71.75 Urine Random Sodium 100 H Urine Protein/Creatinine Ratio 3.67 Urine Glucose NEGATIVE Urine Total Protein 264.0 H Ferritin 125.0 White Blood Count 7.6 # Red Blood Count 2.29 #L Hemoglobin 7.1 L Hematocrit 21.0 #L Mean Corpuscular Volume 91.7 Mean Corpuscular Hemoglobin 31.0 Mean Corpuscular Hemoglobin Concent 33.8 Red Cell Distribution Width 13.7 Platelet Count 221 Mean Platelet Volume 11.4 H Neutrophils % 58.4 Lymphocytes % 30.4 Monocytes % 5.4 Eosinophils % 5.0 Basophils % 0.4 Nucleated Red Blood Cells % 0.0 Neutrophils # 4.5 Lymphocytes # 2.3 Monocytes # 0.4 Eosinophils # 0.4 Basophils # 0.0 Nucleated Red Blood Cells # 0.0 Sodium Level 146 H Potassium Level 3.8 Chloride Level 112 H Carbon Dioxide Level 25 # Anion Gap 13 # Blood Urea Nitrogen 50 H Creatinine 4.57 H Glucose Level 101 Calcium Level 8.9 Phosphorus Level 4.7 Magnesium Level 1.6 L Iron Level 51 Total Iron Binding Capacity 251 Percent Iron Saturation 20 L Prostate Specific Antigen 0.6 Prothrombin Time 14.6 H Prothrombin Time Ratio 1.1 INR International Normalized Ratio 1.14 Activated Partial Thromboplast Time 32.7 Medications Medications Current Medications Epoetin Eris (Epogen (Esrd)) 10,000 units MoWeFr@17 SC ; Start 02/25/17 at 17:00 Allopurinol (Zyloprim) 100 mg DAILY PO Last administered on 02/25/17 08:57; Admin Dose 100 MG; Start 02/25/17 at 09:00 Amlodipine Besylate (Norvasc) 5 mg DAILY PO Last administered on 02/25/17 08:57 ; Admin Dose 5 MG; Start 02/24/17 at 12:00 Clonazepam (Klonopin) 1 mg QHS PO Last administered on 02/24/17 21:47; Admin Dose 1 MG; Start 02/24/17 at 21:00 Sertraline HCl (Zoloft) 50 mg QHS PO Last administered on 02/24/17 21:47; Admin Dose 50 MG; Start 02/24/17 at 21:00 Tramadol HCl (Ultram) 50 mg Q6H PRN PO PAIN; Start 02/24/17 at 12:00 Trazodone HCl (Desyrel) 150 mg QHS PO Last administered on 02/24/17 21:47; Admin Dose 150 MG; Start 02/24/17 at 21:00 Levetiracetam (Keppra) 500 mg TID PO Last administered on 02/25/17 08:57; Admin Dose 500 MG; Start 02/24/17 at 13:00 Multivit/Ca Carb/ B Cmplx/FA/Prenat (Ronda-Joo) 1 tab DAILY PO Last administered on 02/25/17 08:57; Admin Dose 1 TAB; Start 02/25/17 at 09:00 Tamsulosin HCl 0.4 mg 0.4 mg HS PO ; Start 02/25/17 at 21:00 Magnesium Sulfate 3 gm/Sodium Chloride 106 ml @ 35.333 mls/ hr ONCE ONCE IVPB Last administered on 02/25/17 09:06; Admin Dose 35.333 MLS/HR; Start 02/25/17 at 09:00; Stop 02/25/17 at 11:59 Sodium Chloride (1/2 NS) 1,000 ml @ 75 mls/hr [id number] IV Last administered on 02/25/17 09:06; Admin Dose 75 MLS/HR; Start 02/25/17 at 08:00 Pantoprazole (Protonix Tab) 40 mg BID@06,18 PO ; Start 02/25/17 at 18:00 BRANDI ZHENG MD Feb 25, 2017 12:03
--- NOTE | 2017-02-25 12:27 | PN ---
Date/Time of Note Date/Time of Note DATE: 02/25/17 TIME: 12:13 Assessment/Plan VTE Prophylaxis VTE Prophylaxis Intervention: SCD's Lines/Catheters IV Catheter Type (from Nrsg): Peripheral IV Assessment/Plan Assessment/Plan 66-year-old male with: 1. CKD advanced, appreciate Dr Anthony's assistance Renal function seems to have improved No Need for HD so far Continue medical management 2. Anemia of chronic disease, workup in progress. Most likely secondary to chronic kidney disease but GI w/u pending Patient getting 2 units pRBC today for Hb 7.1 Dr Barreto consulted for GI w/u Continue Epo 3. Hypertension. Continue Norvasc. 4. Major depressive disorder. Continue outpatient medication. 5. Seizure disorder. Continue home meds. 6. Gout. Continue allopurinol. 7. Peripheral neuropathy. Continue Ultram as needed for pain. 8. Gastroesophageal reflux disease. Continue Protonix. 9. Old nondisplaced proximal left humeral fracture with overlying callous formation indicating healing, no further intervention for now, can f/u with ortho as outpatient if needed, will refer to Dr Guevara as needed. Prophylaxis: Continue Protonix and SCDs for DVT prophylaxis. DISPOSITION: GI work up pending and patient getting pRBC today. Nephrology following. Subjective 24 Hr Interval Summary Free Text/Dictation Patient doing OK this AM Renal function somewhat better Getting 2 units pRBC today for Hb of 7.1 Exam/Review of Systems Vital Signs Vitals Vital Signs Date Time Temp Pulse Resp B/P Pulse Ox O2 Delivery O2 Flow Rate FiO2 02/25/17 07:25 98.6 65 18 124/67 94 02/24/17 18:28 Room Air Intake and Output 02/24/17 02/24/17 02/25/17 15:00 23:00 07:00 Intake Total 1480 ml Output Total 400 ml Balance 1080 ml Exam Constitutional: alert, frail, oriented Respiratory: clear to auscultation, normal air movement Cardiovascular: nl pulses, regular rate and rhythm Gastrointestinal: non-tender, soft Musculoskeletal: nl extremities to inspection Extremities: normal pulses, other (no edema, clubbing or cyanosis ) Neurological: [employer] II-XII intact, nl mental status, nl speech, other ( generalised weakness ) Results Result Diagram: 02/25/17 0450 02/25/17 0450 Results 24 hrs Laboratory Tests Test 02/25/17 03:35 02/25/17 04:20 02/25/17 04:50 02/25/17 10:15 Urine Color LT. YELLOW Urine Clarity CLEAR Urine pH 6.0 Urine Specific [place] 1.015 Urine Ketones NEGATIVE Urine Nitrite NEGATIVE Urine Bilirubin NEGATIVE Urine Urobilinogen 0.2 E.U./dL Urine Leukocyte Esterase 1+ H Urine Microscopic RBC 2-5 Urine Microscopic WBC >50 Urine Squamous Epithelial Cells FEW Urine Bacteria MANY Urine Hemoglobin TRACE Urine Random Creatinine 71.75 Urine Random Sodium 100 H Urine Protein/Creatinine Ratio 3.67 Urine Glucose NEGATIVE Urine Total Protein 264.0 H Ferritin 125.0 White Blood Count 7.6 # Red Blood Count 2.29 #L Hemoglobin 7.1 L Hematocrit 21.0 #L Mean Corpuscular Volume 91.7 Mean Corpuscular Hemoglobin 31.0 Mean Corpuscular Hemoglobin Concent 33.8 Red Cell Distribution Width 13.7 Platelet Count 221 Mean Platelet Volume 11.4 H Neutrophils % 58.4 Lymphocytes % 30.4 Monocytes % 5.4 Eosinophils % 5.0 Basophils % 0.4 Nucleated Red Blood Cells % 0.0 Neutrophils # 4.5 Lymphocytes # 2.3 Monocytes # 0.4 Eosinophils # 0.4 Basophils # 0.0 Nucleated Red Blood Cells # 0.0 Sodium Level 146 H Potassium Level 3.8 Chloride Level 112 H Carbon Dioxide Level 25 # Anion Gap 13 # Blood Urea Nitrogen 50 H Creatinine 4.57 H Glucose Level 101 Calcium Level 8.9 Phosphorus Level 4.7 Magnesium Level 1.6 L Iron Level 51 Total Iron Binding Capacity 251 Percent Iron Saturation 20 L Prostate Specific Antigen 0.6 Prothrombin Time 14.6 H Prothrombin Time Ratio 1.1 INR International Normalized Ratio 1.14 Activated Partial Thromboplast Time 32.7 Medications Medications Current Medications Epoetin Eris (Epogen (Esrd)) 10,000 units MoWeFr@17 SC ; Start 02/25/17 at 17:00 Allopurinol (Zyloprim) 100 mg DAILY PO Last administered on 02/25/17 08:57; Admin Dose 100 MG; Start 02/25/17 at 09:00 Amlodipine Besylate (Norvasc) 5 mg DAILY PO Last administered on 02/25/17 08:57 ; Admin Dose 5 MG; Start 02/24/17 at 12:00 Clonazepam (Klonopin) 1 mg QHS PO Last administered on 02/24/17 21:47; Admin Dose 1 MG; Start 02/24/17 at 21:00 Sertraline HCl (Zoloft) 50 mg QHS PO Last administered on 02/24/17 21:47; Admin Dose 50 MG; Start 02/24/17 at 21:00 Tramadol HCl (Ultram) 50 mg Q6H PRN PO PAIN; Start 02/24/17 at 12:00 Trazodone HCl (Desyrel) 150 mg QHS PO Last administered on 02/24/17 21:47; Admin Dose 150 MG; Start 02/24/17 at 21:00 Levetiracetam (Keppra) 500 mg TID PO Last administered on 02/25/17 08:57; Admin Dose 500 MG; Start 02/24/17 at 13:00 Multivit/Ca Carb/ B Cmplx/FA/Prenat (Ronda-Joo) 1 tab DAILY PO Last administered on 02/25/17 08:57; Admin Dose 1 TAB; Start 02/25/17 at 09:00 Tamsulosin HCl 0.4 mg 0.4 mg HS PO ; Start 02/25/17 at 21:00 Sodium Chloride (1/2 NS) 1,000 ml @ 75 mls/hr [id number] IV Last administered on 02/25/17 09:06; Admin Dose 75 MLS/HR; Start 02/25/17 at 08:00 Pantoprazole (Protonix Tab) 40 mg BID@06,18 PO ; Start 02/25/17 at 18:00 Procedures Procedures PROCEDURE: XR right shoulder. CLINICAL INDICATION: Fracture follow-up TECHNIQUE: AP, Internal and external rotation views of the right shoulder were performed. COMPARISON: None FINDINGS: There is normal osseous mineralization and alignment. A nondisplaced fracture of the left humeral metadiaphysis is identified with likely surrounding callus formation. There are normal joints without evidence of arthritis or dislocation. The soft tissues are unremarkable. RPTAT: AA IMPRESSION: Nondisplaced proximal left humerus fracture with likely overlying callous formation indicating healing. Amadou Harris, Physician Date Time Electronically viewed and signed by Amadou Harris, Physician on 02/25/2017 09:52 ROBERT EDEN Feb 25, 2017 12:24
[2017-02-25] MEDS ORDERED: BISACODYL (EC) 5 MG TAB PO ONE (15:00)
[2017-02-25] MEDS ORDERED: MAGNESIUM CITRATE 300 ML BTL PO ONE (17:30)
[2017-02-25 17:34] LABS: ADD SCAN DIFF NO
[2017-02-25 17:40] LABS: BASOPHILS % 0.5 % (0.0-2.0); EOSINOPHILS # 0.5 10^3/ul (0.0-0.5); EOSINOPHILS % 6.4 % (0.0-7.0); HEMATOCRIT 24.4 % (42.0-52.0); HEMOGLOBIN 8.2 g/dl (14.0-18.0); LYMPHOCYTES # 2.5 10^3/ul (0.8-2.9); LYMPHOCYTES % 31.1 % (15.0-51.0); MEAN CORPUSCULAR HEMOGLOBIN 30.5 pg (29.0-33.0); MEAN CORPUSCULAR HGB CONC 33.6 g/dl (32.0-37.0); MEAN CORPUSCULAR VOLUME 90.7 fl (82.0-101.0); MEAN PLATELET VOLUME 10.5 fl (7.4-10.4); MONOCYTE # 0.5 10^3/ul (0.3-0.9); MONOCYTES % 5.9 % (0.0-11.0); NEUTROPHIL # 4.6 10^3/ul (1.6-7.5); NEUTROPHILS % 55.9 % (39.0-77.0); PLATELET COUNT 210 10^3/UL (140-415); RED BLOOD COUNT 2.69 10^6/ul (4.70-6.10); RED CELL DISTRIBUTION WIDTH 14.1 % (11.5-14.5); WHITE BLOOD COUNT 8.2 10^3/ul (4.8-10.8)
[2017-02-25] MEDS: EPOETIN 10000 UNITS/1 ML INJ (ESRD) SC SCH (17:53)
[2017-02-25] MEDS ORDERED: POLYETHYLENE GLYCOL 3350 119 GM POWDER PO ONE (18:30)
[2017-02-25 19:04] VITALS: BP 134/68; PULSE 74; RESP 18
[2017-02-25 20:00] VITALS: BP 141/74
[2017-02-25] MEDS: SERTRALINE 50 MG TAB PO SCH (21:02)
[2017-02-25] MEDS: clonAZEPAM 0.5 MG TAB PO SCH (21:02)
[2017-02-25] MEDS: TAMSULOSIN (SR) 0.4 MG CAP PO SCH (21:03)
[2017-02-25] MEDS: traZODone 50 MG TAB PO SCH (21:03)
[2017-02-25] MEDS: MELATONIN 3 MG PO PRN (23:26)
[2017-02-26] VITALS (12 sets, daily range): BP systolic 103–155; BP diastolic 56–78; PULSE 60–87; RESP 15–28
[2017-02-26] MEDS: PANTOPRAZOLE (EC) 40 MG TAB PO SCH ×2 (05:05→17:07)
[2017-02-26 06:20] LABS: ADD SCAN DIFF NO
[2017-02-26 06:31] LABS: BASOPHILS % 0.4 % (0.0-2.0); EOSINOPHILS # 0.6 10^3/ul (0.0-0.5); EOSINOPHILS % 7.2 % (0.0-7.0); HEMATOCRIT 27.8 % (42.0-52.0); HEMOGLOBIN 9.3 g/dl (14.0-18.0); LYMPHOCYTES # 2.5 10^3/ul (0.8-2.9); LYMPHOCYTES % 29.7 % (15.0-51.0); MEAN CORPUSCULAR HEMOGLOBIN 30.4 pg (29.0-33.0); MEAN CORPUSCULAR HGB CONC 33.5 g/dl (32.0-37.0); MEAN CORPUSCULAR VOLUME 90.8 fl (82.0-101.0); MEAN PLATELET VOLUME 11.3 fl (7.4-10.4); MONOCYTE # 0.5 10^3/ul (0.3-0.9); MONOCYTES % 5.4 % (0.0-11.0); NEUTROPHIL # 4.8 10^3/ul (1.6-7.5); NEUTROPHILS % 57.1 % (39.0-77.0); PLATELET COUNT 221 10^3/UL (140-415); RED BLOOD COUNT 3.06 10^6/ul (4.70-6.10); RED CELL DISTRIBUTION WIDTH 14.4 % (11.5-14.5); WHITE BLOOD COUNT 8.4 10^3/ul (4.8-10.8)
[2017-02-26] MEDS: SOD CHLORIDE 0.45% 1,000 ML IV SCH ×2 (06:39→20:58)
[2017-02-26 07:15] LABS: MAGNESIUM 2.7 mg/dl (1.7-2.5); PHOSPHORUS 3.8 mg/dl (2.5-4.9)
[2017-02-26 07:17] LABS: ALBUMIN 4.2 g/dl (3.3-4.9); ALBUMIN/GLOBULIN RATIO 1.75; BILIRUBIN,INDIRECT 0.2 mg/dl (0-1.1); BILIRUBIN,TOTAL 0.2 mg/dl (0.2-1.3); CREATININE 4.35 mg/dl (0.61-1.24); TOTAL PROTEIN 6.6 g/dl (6.1-8.1)
[2017-02-26] MEDS: AMLODIPINE 5 MG TAB PO SCH (08:37)
[2017-02-26] MEDS: ALLOPURINOL 100 MG TAB PO SCH (08:37)
[2017-02-26] MEDS: MULTIVIT/CA CARB/B CMPLX/FA TAB PO SCH (08:37)
[2017-02-26] MEDS: LEVETIRACETAM 500 MG TAB PO SCH ×3 (08:37→20:53)
--- NOTE | 2017-02-26 09:17 | CONS ---
Date/Time of Note Date/Time of Note DATE: 02/26/17 TIME: 09:14 Assessment/Plan Assessment/Plan Problems: (1) CKD (chronic kidney disease) stage 3, GFR 30-59 ml/min Comment: Cr recovering w fluids... approaching baseline... excellent UOP (2) HTN (hypertension) Comment: controlled on meds (3) Acute renal failure Status: Acute Comment: recovering w IVF Qualifiers: Acute renal failure type: unspecified Qualified Code: N17.9 - Acute renal failure, unspecified acute renal failure type (4) Anemia Status: Acute Comment: of CKD, r/o GI loss... for procedures today... good response post PRBC 's Qualifiers: Anemia type: unspecified type Qualified Code: D64.9 - Anemia, unspecified type Consultation Date/Type/Reason Admit Date/Time Feb 24, 2017 at 10:28 Initial Consult Date 02/25/17 Type of Consultation: neph Referring Provider: ROBERT EDEN 24 HR Interval Summary Free Text/Dictation resting comfortably... is NPO for GI procedure today Exam/Review of Systems Vital Signs Vitals Vital Signs Date Time Temp Pulse Resp B/P Pulse Ox O2 Delivery O2 Flow Rate FiO2 02/26/17 07:20 97.7 56 16 129/62 91 02/24/17 18:28 Room Air Intake and Output 02/25/17 02/25/17 02/26/17 15:00 23:00 07:00 Intake Total 1431 ml 1420 ml Output Total 850 ml 1300 ml Balance 581 ml 120 ml Exam Psych: no complaints Neck: supple Respiratory: clear to auscultation Cardiovascular: regular rate and rhythm Extremities: normal pulses Results Result Diagram: 02/26/17 0526 02/26/17 0526 Results 24 hrs Laboratory Tests Test 02/25/17 10:15 02/25/17 17:30 02/26/17 05:26 02/26/17 05:40 Prothrombin Time 14.6 H Prothrombin Time Ratio 1.1 INR International Normalized Ratio 1.14 Activated Partial Thromboplast Time 32.7 Vitamin B12 Level 407 Folate Pending White Blood Count 8.2 8.4 Red Blood Count 2.69 L 3.06 L Hemoglobin 8.2 L 9.3 L Hematocrit 24.4 L 27.8 L Mean Corpuscular Volume 90.7 90.8 Mean Corpuscular Hemoglobin 30.5 30.4 Mean Corpuscular Hemoglobin Concent 33.6 33.5 Red Cell Distribution Width 14.1 14.4 Platelet Count 210 221 Mean Platelet Volume 10.5 H 11.3 H Neutrophils % 55.9 57.1 Lymphocytes % 31.1 29.7 Monocytes % 5.9 5.4 Eosinophils % 6.4 7.2 H Basophils % 0.5 0.4 Nucleated Red Blood Cells % 0.0 0.0 Neutrophils # 4.6 4.8 Lymphocytes # 2.5 2.5 Monocytes # 0.5 0.5 Eosinophils # 0.5 0.6 H Basophils # 0.0 0.0 Nucleated Red Blood Cells # 0.0 0.0 Sodium Level 143 Potassium Level 4.0 Chloride Level 111 H Carbon Dioxide Level 23 Anion Gap 13 Blood Urea Nitrogen 48 H Creatinine 4.35 H Glucose Level 100 Calcium Level 9.0 Phosphorus Level 3.8 Magnesium Level 2.7 #H Total Bilirubin 0.2 Direct Bilirubin 0.00 Indirect Bilirubin 0.2 Aspartate Amino Transf (AST/SGOT) 13 L Alanine Aminotransferase (ALT/SGPT) 24 Alkaline Phosphatase 119 Total Protein 6.6 # Albumin 4.2 # Globulin 2.40 Albumin/Globulin Ratio 1.75 Lab Scanned Report BLOOD TRANSFUSION Medications Medications Current Medications Epoetin Eris (Epogen (Esrd)) 10,000 units MoWeFr@17 SC Last administered on 02/25 17:53; Admin Dose 10,000 UNITS; Start 02/25/17 at 17:00 Allopurinol (Zyloprim) 100 mg DAILY PO Last administered on 02/25/17 08:57; Admin Dose 100 MG; Start 02/25/17 at 09:00 Amlodipine Besylate (Norvasc) 5 mg DAILY PO Last administered on 02/25/17 08:57 ; Admin Dose 5 MG; Start 02/24/17 at 12:00 Clonazepam (Klonopin) 1 mg QHS PO Last administered on 02/25/17 21:02; Admin Dose 1 MG; Start 02/24/17 at 21:00 Sertraline HCl (Zoloft) 50 mg QHS PO Last administered on 02/25/17 21:02; Admin Dose 50 MG; Start 02/24/17 at 21:00 Tramadol HCl (Ultram) 50 mg Q6H PRN PO PAIN; Start 02/24/17 at 12:00 Trazodone HCl (Desyrel) 150 mg QHS PO Last administered on 02/25/17 21:03; Admin Dose 150 MG; Start 02/24/17 at 21:00 Levetiracetam (Keppra) 500 mg TID PO Last administered on 02/25/17 21:02; Admin Dose 500 MG; Start 02/24/17 at 13:00 Multivit/Ca Carb/ B Cmplx/FA/Prenat (Ronda-Joo) 1 tab DAILY PO Last administered on 02/25/17 08:57; Admin Dose 1 TAB; Start 02/25/17 at 09:00 Tamsulosin HCl 0.4 mg 0.4 mg HS PO Last administered on 02/25/17 21:03; Admin Dose 0.4 MG; Start 02/25/17 at 21:00 Sodium Chloride (1/2 NS) 1,000 ml @ 75 mls/hr [id number] IV Last administered on 02/26/17 06:39; Admin Dose 75 MLS/HR; Start 02/25/17 at 08:00 Pantoprazole (Protonix Tab) 40 mg BID@06,18 PO Last administered on 02/25/17 17 :51; Admin Dose 40 MG; Start 02/25/17 at 18:00 Patient Own Medication 1 ea QHS PRN PO INSOMNIA Last administered on 02/25/17 23:26; Admin Dose 1 EA; Start 02/25/17 at 15:30 DAXA PEOPLES MD Feb 26, 2017 09:17
[2017-02-26] MEDS ORDERED: LIDOCAINE 2% (SDV) 5 ML INJ ONE (09:48)
[2017-02-26] MEDS ORDERED: PROPOFOL 40 ML ONE (09:48)
[2017-02-26] MEDS ORDERED: BISACODYL (EC) 5 MG TAB PO ONE ×2 (10:30)
[2017-02-26] MEDS ORDERED: HYDROmorphONE (0.2 MG/ML) 10ML SYG IV PRN (10:30)
[2017-02-26] MEDS ORDERED: ONDANSETRON 4 MG INJ IV PRN (10:30)
[2017-02-26] MEDS ORDERED: hydrALAzine 20 MG INJ IV PRN (10:30)
[2017-02-26] MEDS ORDERED: DIPHENHYDRAMINE 50 MG INJ IV PRN (10:30)
[2017-02-26] MEDS ORDERED: LABETALOL HCL 20MG INJ IV PRN (10:30)
[2017-02-26] MEDS ORDERED: PROCHLORPERAZINE 10 MG INJ IV PRN (10:30)
[2017-02-26] MEDS ORDERED: OXYCODONE/ACETAMINOPHEN (5/325) TAB PO PRN (10:30)
[2017-02-26] MEDS ORDERED: MEPERIDINE 25 MG INJ IV PRN (10:30)
--- NOTE | 2017-02-26 12:42 | PN ---
Date/Time of Note Date/Time of Note DATE: 02/26/17 TIME: 12:33 Assessment/Plan VTE Prophylaxis VTE Prophylaxis Intervention: SCD's Lines/Catheters IV Catheter Type (from [facility]): Peripheral IV Urinary Cath still in place: No Assessment/Plan Assessment/Plan 66-year-old male with: 1. CKD advanced, appreciate Dr Anthony's assistance Renal function seems to have improved and around baseline No Need for HD so far Continue medical management 2. Anemia of chronic disease, workup in progress. Most likely secondary to chronic kidney disease, s/p EGD and colonoscopy, to have repeat colonoscopy tomorrow due to incomplete prep Appreciate Dr Barreto's assistance Patient getting 2 units pRBC yesterday and Hb up to 9.3 Continue Epo 3. Hypertension. Continue Norvasc. 4. Major depressive disorder. Continue outpatient medication. 5. Seizure disorder. Continue home meds. 6. Gout. Continue allopurinol. 7. Peripheral neuropathy. Continue Ultram as needed for pain. 8. Gastroesophageal reflux disease. Continue Protonix. 9. Old nondisplaced proximal left humeral fracture with overlying callous formation indicating healing, no further intervention for now, can f/u with ortho as outpatient if needed, will refer to Dr Guevara as needed. Prophylaxis: Continue Protonix and SCDs for DVT prophylaxis. DISPOSITION: Repeat Colonoscopy in AM. Nephrology following. Subjective 24 Hr Interval Summary Free Text/Dictation Patient remains stable with slight improvement of renal function. S/p 2 units pRBC yesterday S/p EGD and [place] this AM with plan to repeat [place] tomorrow due to incomplete prep and polyp Exam/Review of Systems Vital Signs Vitals Vital Signs Date Time Temp Pulse Resp B/P Pulse Ox O2 Delivery O2 Flow Rate FiO2 02/26/17 11:15 62 18 141/78 96 Room Air 02/26/17 10:45 2.0 02/26/17 10:41 98.0 Intake and Output 02/25/17 02/25/17 02/26/17 15:00 23:00 07:00 Intake Total 1431 ml 1420 ml Output Total 850 ml 1300 ml Balance 581 ml 120 ml Exam Constitutional: alert, oriented (x2 to 3 at baseline ), well developed Respiratory: clear to auscultation, normal air movement Cardiovascular: nl pulses, regular rate and rhythm Gastrointestinal: non-tender, soft Musculoskeletal: nl extremities to inspection Extremities: normal pulses, other (no edema, clubbing or cyanosis) 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4 Nucleated Red Blood Cells % 0.0 0.0 Neutrophils # 4.6 4.8 Lymphocytes # 2.5 2.5 Monocytes # 0.5 0.5 Eosinophils # 0.5 0.6 H Basophils # 0.0 0.0 Nucleated Red Blood Cells # 0.0 0.0 Sodium Level 143 Potassium Level 4.0 Chloride Level 111 H Carbon Dioxide Level 23 Anion Gap 13 Blood Urea Nitrogen 48 H Creatinine 4.35 H Glucose Level 100 Calcium Level 9.0 Phosphorus Level 3.8 Magnesium Level 2.7 #H Total Bilirubin 0.2 Direct Bilirubin 0.00 Indirect Bilirubin 0.2 Aspartate Amino Transf (AST/SGOT) 13 L Alanine Aminotransferase (ALT/SGPT) 24 Alkaline Phosphatase 119 Total Protein 6.6 # Albumin 4.2 # Globulin 2.40 Albumin/Globulin Ratio 1.75 Lab Scanned Report BLOOD TRANSFUSION Medications Medications Current Medications Epoetin Eris (Epogen (Esrd)) 10,000 units MoWeFr@17 SC Last administered on 02/25 17:53; Admin Dose 10,000 UNITS; Start 02/25/17 at 17:00 Allopurinol (Zyloprim) 100 mg DAILY PO Last administered on 02/25/17 08:57; Admin Dose 100 MG; Start 02/25/17 at 09:00 Amlodipine Besylate (Norvasc) 5 mg DAILY PO Last administered on 02/25/17 08:57 ; Admin Dose 5 MG; Start 02/24/17 at 12:00 Clonazepam (Klonopin) 1 mg QHS PO Last administered on 02/25/17 21:02; Admin Dose 1 MG; Start 02/24/17 at 21:00 Sertraline HCl (Zoloft) 50 mg QHS PO Last administered on 02/25/17 21:02; Admin Dose 50 MG; Start 02/24/17 at 21:00 Tramadol HCl (Ultram) 50 mg Q6H PRN PO PAIN; Start 02/24/17 at 12:00 Trazodone HCl (Desyrel) 150 mg QHS PO Last administered on 02/25/17 21:03; Admin Dose 150 MG; Start 02/24/17 at 21:00 Levetiracetam (Keppra) 500 mg TID PO Last administered on 02/26/17 12:19; Admin Dose 500 MG; Start 02/24/17 at 13:00 Multivit/Ca Carb/ B Cmplx/FA/Prenat (Ronda-Joo) 1 tab DAILY PO Last administered on 02/25/17 08:57; Admin Dose 1 TAB; Start 02/25/17 at 09:00 Tamsulosin HCl 0.4 mg 0.4 mg HS PO Last administered on 02/25/17 21:03; Admin Dose 0.4 MG; Start 02/25/17 at 21:00 Sodium Chloride (1/2 NS) 1,000 ml @ 75 mls/hr [id number] IV Last administered on 02/26/17 06:39; Admin Dose 75 MLS/HR; Start 02/25/17 at 08:00 Pantoprazole (Protonix Tab) 40 mg BID@06,18 PO Last administered on 02/25/17 17 :51; Admin Dose 40 MG; Start 02/25/17 at 18:00 Patient Own Medication 1 ea QHS PRN PO INSOMNIA Last administered on 02/25/17 23:26; Admin Dose 1 EA; Start 02/25/17 at 15:30 Magnesium Citrate (Citroma) 300 ml ONCE ONCE PO ; Start 02/26/17 at 17:30; Stop 02/26/17 at 17:31 Polyethylene Glycol (Miralax) 119 gm ONCE ONCE PO ; Start 02/26/17 at 18:30; Stop 02/26/17 at 18:31 ROBERT EDEN Feb 26, 2017 12:42
[2017-02-26 13:06] LABS: FOLATE > 20.0 ng/ml (2.8-20.0)
[2017-02-26] MEDS ORDERED: MAGNESIUM CITRATE 300 ML BTL PO ONE (17:30)
[2017-02-26] MEDS ORDERED: POLYETHYLENE GLYCOL 3350 119 GM POWDER PO ONE ×2 (18:30)
[2017-02-26] MEDS: traZODone 50 MG TAB PO SCH (20:53)
[2017-02-26] MEDS: SERTRALINE 50 MG TAB PO SCH (20:54)
[2017-02-26] MEDS: TAMSULOSIN (SR) 0.4 MG CAP PO SCH (20:54)
[2017-02-26] MEDS: clonAZEPAM 0.5 MG TAB PO SCH (20:54)
[2017-02-26] MEDS: ACETAMINOPHEN 325 MG TAB PO PRN (21:34)
[2017-02-27] MEDS ORDERED: BISACODYL (EC) 5 MG TAB PO ONE (05:00)
[2017-02-27] MEDS: PANTOPRAZOLE (EC) 40 MG TAB PO SCH ×2 (05:05→17:28)
[2017-02-27 05:56] LABS: ADD SCAN DIFF NO
[2017-02-27] MEDS ORDERED: POLYETHYLENE GLYCOL 3350 119 GM POWDER PO ONE (06:00)
[2017-02-27 06:16] LABS: BASOPHILS % 0.5 % (0.0-2.0); EOSINOPHILS # 0.6 10^3/ul (0.0-0.5); EOSINOPHILS % 8.3 % (0.0-7.0); HEMATOCRIT 28.6 % (42.0-52.0); HEMOGLOBIN 9.3 g/dl (14.0-18.0); LYMPHOCYTES # 2.2 10^3/ul (0.8-2.9); LYMPHOCYTES % 28.4 % (15.0-51.0); MEAN CORPUSCULAR HEMOGLOBIN 29.7 pg (29.0-33.0); MEAN CORPUSCULAR HGB CONC 32.5 g/dl (32.0-37.0); MEAN CORPUSCULAR VOLUME 91.4 fl (82.0-101.0); MEAN PLATELET VOLUME 11.2 fl (7.4-10.4); MONOCYTE # 0.4 10^3/ul (0.3-0.9); MONOCYTES % 5.6 % (0.0-11.0); NEUTROPHIL # 4.4 10^3/ul (1.6-7.5); NEUTROPHILS % 56.8 % (39.0-77.0); PLATELET COUNT 196 10^3/UL (140-415); RED BLOOD COUNT 3.13 10^6/ul (4.70-6.10); RED CELL DISTRIBUTION WIDTH 13.9 % (11.5-14.5); WHITE BLOOD COUNT 7.7 10^3/ul (4.8-10.8)
[2017-02-27 06:33] LABS: ALBUMIN 4.1 g/dl (3.3-4.9); ALBUMIN/GLOBULIN RATIO 1.78; BILIRUBIN,INDIRECT 0.2 mg/dl (0-1.1); BILIRUBIN,TOTAL 0.2 mg/dl (0.2-1.3); CALCIUM 8.9 mg/dl (8.4-10.2); CREATININE 4.08 mg/dl (0.61-1.24); POTASSIUM 3.6 mmol/L (3.5-5.1); TOTAL PROTEIN 6.4 g/dl (6.1-8.1)
[2017-02-27 06:36] LABS: MAGNESIUM 2.3 mg/dl (1.7-2.5); PHOSPHORUS 4.2 mg/dl (2.5-4.9)
[2017-02-27 08:00] VITALS: BP 147/83; PULSE 55; RESP 14
[2017-02-27] MEDS ORDERED: MIDAZOLAM 1 MG/ML 2 ML INJ ONE (08:06)
[2017-02-27] MEDS ORDERED: FENTAnyl 50 MCG/ML VIAL ONE (08:06)
[2017-02-27] MEDS ORDERED: PROPOFOL 20 ML ONE (08:06)
[2017-02-27 09:01] VITALS: BP 122/66; PULSE 58; RESP 18
--- NOTE | 2017-02-27 09:15 | CONS ---
Date/Time of Note Date/Time of Note DATE: 02/27/17 TIME: 09:12 Assessment/Plan Assessment/Plan Problems: (1) Acute renal failure Status: Acute Comment: resolving w hydration... Cr down to 4 now Qualifiers: Acute renal failure type: unspecified Qualified Code: N17.9 - Acute renal failure, unspecified acute renal failure type (2) CKD (chronic kidney disease) stage 3, GFR 30-59 ml/min Comment: at baseline ? (3) Anemia Status: Acute Comment: Hct stable/improved post 2U... had EGD/colon yest..?results?.. per another procedure this am Qualifiers: Anemia type: unspecified type Qualified Code: D64.9 - Anemia, unspecified type Consultation Date/Type/Reason Admit Date/Time Feb 24, 2017 at 10:28 Initial Consult Date 02/25/17 Type of Consultation: neph Referring Provider: ROBERT EDEN 24 HR Interval Summary Free Text/Dictation down to go for another 'colon...?results from yesterday?? Exam/Review of Systems Vital Signs Vitals Vital Signs Date Time Temp Pulse Resp B/P Pulse Ox O2 Delivery O2 Flow Rate FiO2 02/27/17 09:01 58 18 122/66 94 Room Air 02/27/17 08:00 98.2 02/26/17 10:45 2.0 Intake and Output 02/26/17 02/26/17 02/27/17 15:00 23:00 07:00 Intake Total 1920 ml 900 ml Output Total 250 ml 1200 ml 900 ml Balance -250 ml 720 ml 0 ml Exam Constitutional: alert Psych: no complaints Respiratory: clear to auscultation Cardiovascular: regular rate and rhythm Extremities: normal pulses Results Result Diagram: 02/27/17 0515 02/27/17 0515 Results 24 hrs Laboratory Tests Test 02/27/17 05:15 White Blood Count 7.7 Red Blood Count 3.13 L Hemoglobin 9.3 L Hematocrit 28.6 L Mean Corpuscular Volume 91.4 Mean Corpuscular Hemoglobin 29.7 Mean Corpuscular Hemoglobin Concent 32.5 Red Cell Distribution Width 13.9 Platelet Count 196 Mean Platelet Volume 11.2 H Neutrophils % 56.8 Lymphocytes % 28.4 Monocytes % 5.6 Eosinophils % 8.3 H Basophils % 0.5 Nucleated Red Blood Cells % 0.0 Neutrophils # 4.4 Lymphocytes # 2.2 Monocytes # 0.4 Eosinophils # 0.6 H Basophils # 0.0 Nucleated Red Blood Cells # 0.0 Sodium Level 140 Potassium Level 3.6 Chloride Level 111 H Carbon Dioxide Level 19 L Anion Gap 14 Blood Urea Nitrogen 37 #H Creatinine 4.08 H Glucose Level 95 Calcium Level 8.9 Phosphorus Level 4.2 Magnesium Level 2.3 Total Bilirubin 0.2 Direct Bilirubin 0.00 Indirect Bilirubin 0.2 Aspartate Amino Transf (AST/SGOT) 13 L Alanine Aminotransferase (ALT/SGPT) 31 Alkaline Phosphatase 129 H Total Protein 6.4 Albumin 4.1 Globulin 2.30 Albumin/Globulin Ratio 1.78 Medications Medications Current Medications Epoetin Eris (Epogen (Esrd)) 10,000 units MoWeFr@17 SC Last administered on 02/25 17:53; Admin Dose 10,000 UNITS; Start 02/25/17 at 17:00 Allopurinol (Zyloprim) 100 mg DAILY PO Last administered on 02/25/17 08:57; Admin Dose 100 MG; Start 02/25/17 at 09:00 Amlodipine Besylate (Norvasc) 5 mg DAILY PO Last administered on 02/25/17 08:57 ; Admin Dose 5 MG; Start 02/24/17 at 12:00 Clonazepam (Klonopin) 1 mg QHS PO Last administered on 02/26/17 20:54; Admin Dose 1 MG; Start 02/24/17 at 21:00 Sertraline HCl (Zoloft) 50 mg QHS PO Last administered on 02/26/17 20:54; Admin Dose 50 MG; Start 02/24/17 at 21:00 Tramadol HCl (Ultram) 50 mg Q6H PRN PO PAIN; Start 02/24/17 at 12:00 Trazodone HCl (Desyrel) 150 mg QHS PO Last administered on 02/26/17 20:53; Admin Dose 150 MG; Start 02/24/17 at 21:00 Levetiracetam (Keppra) 500 mg TID PO Last administered on 02/26/17 20:53; Admin Dose 500 MG; Start 02/24/17 at 13:00 Multivit/Ca Carb/ B Cmplx/FA/Prenat (Ronda-Joo) 1 tab DAILY PO Last administered on 02/25/17 08:57; Admin Dose 1 TAB; Start 02/25/17 at 09:00 Tamsulosin HCl 0.4 mg 0.4 mg HS PO Last administered on 02/26/17 20:54; Admin Dose 0.4 MG; Start 02/25/17 at 21:00 Sodium Chloride (1/2 NS) 1,000 ml @ 75 mls/hr [id number] IV Last administered on 02/26/17 20:58; Admin Dose 75 MLS/HR; Start 02/25/17 at 08:00 Pantoprazole (Protonix Tab) 40 mg BID@06,18 PO Last administered on 02/26/17 17:07; Admin Dose 40 MG; Start 02/25/17 at 18:00 Patient Own Medication 1 ea QHS PRN PO INSOMNIA Last administered on 02/25/17 23:26; Admin Dose 1 EA; Start 02/25/17 at 15:30 Acetaminophen (Tylenol Tab) 650 mg Q6H PRN PO PAIN AND OR ELEVATED TEMP Last administered on 02/26/17 21:34; Admin Dose 650 MG; Start 02/26/17 at 21:30 DAXA PEOPLES MD Feb 27, 2017 09:15
--- NOTE | 2017-02-27 09:39 | PN ---
Date/Time of Note Date/Time of Note DATE: 02/27/17 TIME: 09:32 Assessment/Plan VTE Prophylaxis VTE Prophylaxis Intervention: SCD's Lines/Catheters IV C[facility]ter Type (from [facility]): Peripheral IV Urinary Cath still in place: No Assessment/Plan Assessment/Plan 66-year-old male with: 1. CKD advanced, appreciate Dr Anthony's assistance Renal function seems to be improving back to recent baseline No Need for HD so far Continue medical management and IVF 2. Anemia of chronic disease, workup in progress. Most likely secondary to chronic kidney disease, s/p EGD and colonoscopy (repeated today). Appreciate Dr Barreto's assistance Hb stable at 9.3 Continue Epo 3. Hypertension. Continue Norvasc. 4. Major depressive disorder. Continue outpatient medication. 5. Seizure disorder. Continue home meds. 6. Gout. Continue allopurinol. 7. Peripheral neuropathy. Continue Ultram, Tylenol as needed for pain. 8. Gastroesophageal reflux disease. Continue Protonix. 9. Old nondisplaced proximal left humeral fracture with overlying callous formation indicating healing, no further intervention for now, can f/u with ortho as outpatient if needed, will refer to Dr Guevara as needed. Prophylaxis: Continue Protonix and SCDs for DVT prophylaxis. DISPOSITION: Follow up pathology from polyp removed today, h/h stable and Nephrology following. D/c planning for early this week. Subjective 24 Hr Interval Summary Free Text/Dictation Patient doing well, no complaints, s/p repeat colonoscopy with removal of polyps H/H stable and renal function keeps improving slowly Exam/Review of Systems Vital Signs Vitals Vital Signs Date Time Temp Pulse Resp B/P Pulse Ox O2 Delivery O2 Flow Rate FiO2 02/27/17 09:01 58 18 122/66 94 Room Air 02/27/17 08:00 98.2 02/26/17 10:45 2.0 Intake and Output 02/26/17 02/26/17 02/27/17 15:00 23:00 07:00 Intake Total 1920 ml 900 ml Output Total 250 ml 1200 ml 900 ml Balance -250 ml 720 ml 0 ml Exam Constitutional: alert, oriented (x3), well developed Respiratory: clear to auscultation, normal air movement Cardiovascular: nl pulses, regular rate and rhythm Gastrointestinal: non-tender, soft Musculoskeletal: nl extremities to inspection Extremities: normal pulses, other (no edema, clubbing or cyanosis) 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, nl mental status, nl speech, other (stable muscle strength ) Results Result Diagram: 02/27/1715 02/27/17 0515 Results 24 hrs Laboratory Tests Test 02/27/17 05:15 White Blood Count 7.7 Red Blood Count 3.13 L Hemoglobin 9.3 L Hematocrit 28.6 L Mean Corpuscular Volume 91.4 Mean Corpuscular Hemoglobin 29.7 Mean Corpuscular Hemoglobin Concent 32.5 Red Cell Distribution Width 13.9 Platelet Count 196 Mean Platelet Volume 11.2 H Neutrophils % 56.8 Lymphocytes % 28.4 Monocytes % 5.6 Eosinophils % 8.3 H Basophils % 0.5 Nucleated Red Blood Cells % 0.0 Neutrophils # 4.4 Lymphocytes # 2.2 Monocytes # 0.4 Eosinophils # 0.6 H Basophils # 0.0 Nucleated Red Blood Cells # 0.0 Sodium Level 140 Potassium Level 3.6 Chloride Level 111 H Carbon Dioxide Level 19 L Anion Gap 14 Blood Urea Nitrogen 37 #H Creatinine 4.08 H Glucose Level 95 Calcium Level 8.9 Phosphorus Level 4.2 Magnesium Level 2.3 Total Bilirubin 0.2 Direct Bilirubin 0.00 Indirect Bilirubin 0.2 Aspartate Amino Transf (AST/SGOT) 13 L Alanine Aminotransferase (ALT/SGPT) 31 Alkaline Phosphatase 129 H Total Protein 6.4 Albumin 4.1 Globulin 2.30 Albumin/Globulin Ratio 1.78 Medications Medications Current Medications Epoetin Eris (Epogen (Esrd)) 10,000 units MoWeFr@17 SC Last administered on 02/25 17:53; Admin Dose 10,000 UNITS; Start 02/25/17 at 17:00 Allopurinol (Zyloprim) 100 mg DAILY PO Last administered on 02/25/17 08:57; Admin Dose 100 MG; Start 02/25/17 at 09:00 Amlodipine Besylate (Norvasc) 5 mg DAILY PO Last administered on 02/25/17 08:57 ; Admin Dose 5 MG; Start 02/24/17 at 12:00 Clonazepam (Klonopin) 1 mg QHS PO Last administered on 02/26/17 20:54; Admin Dose 1 MG; Start 02/24/17 at 21:00 Sertraline HCl (Zoloft) 50 mg QHS PO Last administered on 02/26/17 20:54; Admin Dose 50 MG; Start 02/24/17 at 21:00 Tramadol HCl (Ultram) 50 mg Q6H PRN PO PAIN; Start 02/24/17 at 12:00 Trazodone HCl (Desyrel) 150 mg QHS PO Last administered on 02/26/17 20:53; Admin Dose 150 MG; Start 02/24/17 at 21:00 Levetiracetam (Keppra) 500 mg TID PO Last administered on 02/26/17 20:53; Admin Dose 500 MG; Start 02/24/17 at 13:00 Multivit/Ca Carb/ B Cmplx/FA/Prenat (Ronda-Joo) 1 tab DAILY PO Last administered on 02/25/17 08:57; Admin Dose 1 TAB; Start 02/25/17 at 09:00 Tamsulosin HCl 0.4 mg 0.4 mg HS PO Last administered on 02/26/17 20:54; Admin Dose 0.4 MG; Start 02/25/17 at 21:00 Sodium Chloride (1/2 NS) 1,000 ml @ 75 mls/hr [id number] IV Last administered on 02/26/17 20:58; Admin Dose 75 MLS/HR; Start 02/25/17 at 08:00 Pantoprazole (Protonix Tab) 40 mg BID@06,18 PO Last administered on 02/26/17 17:07; Admin Dose 40 MG; Start 02/25/17 at 18:00 Patient Own Medication 1 ea QHS PRN PO INSOMNIA Last administered on 02/25/17 23:26; Admin Dose 1 EA; Start 02/25/17 at 15:30 Acetaminophen (Tylenol Tab) 650 mg Q6H PRN PO PAIN AND OR ELEVATED TEMP Last administered on 02/26/17 21:34; Admin Dose 650 MG; Start 02/26/17 at 21:30 ROBERT EDEN Feb 27, 2017 09:39
[2017-02-27 09:42] VITALS: BP 155/72; PULSE 54
[2017-02-27] MEDS: ALLOPURINOL 100 MG TAB PO SCH (09:43)
[2017-02-27] MEDS: LEVETIRACETAM 500 MG TAB PO SCH ×3 (09:43→20:53)
[2017-02-27] MEDS: AMLODIPINE 5 MG TAB PO SCH (09:43)
[2017-02-27] MEDS: MULTIVIT/CA CARB/B CMPLX/FA TAB PO SCH (09:43)
[2017-02-27] MEDS: ACETAMINOPHEN 325 MG TAB PO PRN (09:45)
--- NOTE | 2017-02-27 10:50 | GILP ---
DATE OF PROCEDURE: 02/26/2017 PROCEDURE: Colonoscopy. PREMEDICATION: Monitored anesthesia care by anesthesiologist. INSTRUMENT USED: Olympus colonoscope. PREPARATION: Adequate. SURGEON: Brandi Barreto MD. TECHNIQUE: After informed consent, with the patient/relatives understanding the procedure, its indic ations potential risks and complications, including but not limited to: allergic reaction, bleeding, perforation, infection, missed lesions and after all pertinent questions were answered to the patie nt's satisfaction, the patient/relatives signed the witnessed informed consent. Following this, premedication was administered slowly IV push by under careful cardiovascular and re spiratory monitoring with pulse oximetry, automatic blood pressure and waterproof material folder. Once the sedativ e effect was achieved, the patient was placed in the left lateral decubitus position, digital rectal examination was performed. The colonoscope was then introduced and advanced under visual control th roughout all segments of the colon including: the rectum, sigmoid, descending colon, splenic flexure , transverse colon, hepatic flexure, ascending colon and finally reaching the cecum which was clearl y identified by transillumination, finger indentation and the ileocecal valve. Careful examination o f the mucosa of the lower gastrointestinal tract both on insertion as well as withdrawal of the inst rument disclosed the following findings: Rectal Examination: Small external hemorrhoids were present. Colonic Mucosa: The preparation appears extremely poor and compromised. He lavaged extensively. W e found what appears to be a 1.5 to 2 cm broadbased polyp in the sigmoid colon. Unfortunately, prep aration is so poor in that area that, despite extensive lavage, attempts at polypectomy were thought to be unsafe. The remainder of colonic mucosa was examined and appears unremarkable. The ileoceca l valve was clearly identified. The instrument was withdrawn. We reexamined the area again for pot ential polypectomy but decided that conditions were suboptimal and inadequate. The instrument was w ithdrawn. Extensive diverticulosis noted in the left side of the colon. Moderate sized internal he morrhoids are also present. IMPRESSION: 1. A 1.5 to 2 cm broad-based polyp in the sigmoid colon, poor preparation precludes safe polypectom y. 2. Left-sided diverticulosis, moderate. 3. Moderate sized internal hemorrhoids. PLAN: The patient will require reprepping for optimal visualization and safe polypectomy. Dictated By: BRANDI BARRETO MS/NTS Conf#: [id number] [facility]#: [id number]
--- NOTE | 2017-02-27 11:28 | GILP ---
DATE OF PROCEDURE: 02/27/2017 PROCEDURE: Colonoscopy with saline assisted polypectomy plus localization tattoo. PREMEDICATION: Monitored anesthesia care by anesthesiologist. SURGEON: Aditya Barreto MD INSTRUMENT USED: Olympus colonoscope. PREPARATION: Adequate. TECHNIQUE: After informed consent, with the patient/relatives understanding the procedure, its indic ations potential risks and complications, including but not limited to: allergic reaction, bleeding, perforation, infection, missed lesions and after all pertinent questions were answered to the patie nt's satisfaction, the patient/relatives signed the witnessed informed consent. Following this, premedication was administered slowly IV push by under careful cardiovascular and re spiratory monitoring with pulse oximetry, automatic blood pressure and property assessment monitor. Once the sedativ e effect was achieved, the patient was placed in the left lateral decubitus position, digital rectal examination was performed. The colonoscope was then introduced and advanced under visual control th roughout all segments of the colon including: the rectum, sigmoid, descending colon, splenic flexure , transverse colon, hepatic flexure, ascending colon and finally reaching the cecum which was clearl y identified by transillumination, finger indentation and the ileocecal valve. Careful examination o f the mucosa of the lower gastrointestinal tract both on insertion as well as withdrawal of the inst rument disclosed the following findings: Rectal Examination: Small external hemorrhoids are noted. Colonic Mucosa: The colonic mucosa was examined. On this occasion, the preparation is adequate. T here is moderate diverticulosis note in the left side of the colon. Again, a 1.5 cm broad-based justus yp was noted in the sigmoid colon. The remainder the colonic mucosa appears unremarkable. The ileo cecal valve was clearly identified and appears unremarkable. The instrument was withdrawn, reexamin ing the mucosa in detail. No additional abnormalities were noted. As we reached the sigmoid colon, the polyp was again identified. The area was tattooed for localization, and following this, saline was injected submucosally to lift the polyp, and we proceeded to perform saline-assisted polypectom y. The area of resection appears clear with no evidence of immediate complication. The specimen wa s retrieved. The instrument was withdrawn. Moderate sized internal hemorrhoids were noted on withd romaine of the instrument from the anal canal. The patient tolerated the procedure well and was transferred out of the Endoscopy Suite awake and in good condition to continue recovery under observation. IMPRESSION: 1. 1.5 cm broad-based polyp in the sigmoid colon, post-saline assisted polypectomy plus localizatio n tattoo. 2. Moderate diverticulosis. 3. Moderate sized internal hemorrhoids. PLAN: Pathology will be reviewed as soon as available. The patient will remain on a clear liquid d iet for the remainder of the day. Tomorrow, could be advanced to a regular diet. Early reevaluatio n in 6 months pending review of pathology. Dictated By: ADITYA BARRETO MS/FOZIA Conf#: [id number] DID#: [id number]
--- NOTE | 2017-02-27 12:22 | GILP ---
DATE OF PROCEDURE: 02/26/2017 NAME OF PROCEDURE: Esophagogastroduodenoscopy with biopsies. BRIEF HISTORY AND INDICATIONS: The patient is being evaluated for unexplained severe anemia. PREMEDICATION: Monitored anesthesia care by anesthesiologist. SURGEON: Brandi Barreto MD. INSTRUMENT USED: Olympus panendoscope. TECHNIQUE: After informed consent, with the patient/relatives understanding the procedure, its indic ations, potential risks and complications, including but not limited to: allergic reaction, bleeding , perforation or infection, and after all pertinent questions were answered to the patients satisfac tion, the patient/relatives signed witnessed informed consent. Following this, premedication was administered slowly IV push under careful cardiovascular and respi ratory monitoring with pulse oximetry, automatic blood pressure and telemetry monitor. Once the sedative effect was achieved the patient was place in the left lateral decubitus, the panen doscope was introduced and advanced under visual control. FINDINGS: Careful examination of the upper gastrointestinal tract, both on insertion as well as wit hdrawal of the instrument disclosed the following findings: ESOPHAGUS: The distal esophagus shows moderate erythema and edema of the mucosa. STOMACH: Upon entrance to the stomach air was insufflated, the gastric lyle distended normally. T he mucosa of the fundus, body and antrum of the stomach was carefully examined, it shows erythema an d edema of the mucosa of a moderate degree. Biopsies were obtained to rule out H. pylori infection. PYLORUS: The pylorus appears patent and within normal limits, with no evidence of gastric outlet obs truction. DUODENUM: The duodenal mucosa was carefully examined in the duodenal bulb as well as the second port ion of the duodenum and appears unremarkable with no evidence of duodenitis, ulcer or neoplasm. The instrument was then withdrawn, the patient tolerated the procedure well and was transfer out of the endoscopy suite awake, and in good condition to continue recovery under observation IMPRESSION: 1. Distal esophagitis, moderate. 2. Gastritis, with nodularity. Biopsies obtained to rule out Helicobacter pylori infection. PLAN: The patient will be treated with PPIs. Pathology will be reviewed as soon as available. Fur ther recommendation will depend on patient's clinical course as well as review of biopsies. Dictated By: BRANDI BARRETO MS/FOZIA Conf#: [id number] DID#: [id number] CC: ROBERT EDEN MD;*End*
[2017-02-27] MEDS: SOD CHLORIDE 0.45% 1,000 ML IV SCH (12:33)
[2017-02-27] MEDS: TAMSULOSIN (SR) 0.4 MG CAP PO SCH (20:53)
[2017-02-27] MEDS: clonAZEPAM 0.5 MG TAB PO SCH (20:53)
[2017-02-27] MEDS: SERTRALINE 50 MG TAB PO SCH (20:53)
[2017-02-27] MEDS: traZODone 50 MG TAB PO SCH (20:53)
[2017-02-27 21:02] VITALS: BP 132/61; RESP 19
[2017-02-28] MEDS: MELATONIN 3 MG PO PRN (00:45)
[2017-02-28] MEDS: SOD CHLORIDE 0.45% 1,000 ML IV SCH ×2 (01:39→16:50)
[2017-02-28] MEDS: PANTOPRAZOLE (EC) 40 MG TAB PO SCH ×2 (05:19→17:33)
[2017-02-28 06:10] LABS: ADD SCAN DIFF NO
[2017-02-28 06:16] LABS: BASOPHILS % 0.4 % (0.0-2.0); EOSINOPHILS # 0.6 10^3/ul (0.0-0.5); EOSINOPHILS % 8.1 % (0.0-7.0); HEMATOCRIT 28.2 % (42.0-52.0); HEMOGLOBIN 9.5 g/dl (14.0-18.0); LYMPHOCYTES # 2.2 10^3/ul (0.8-2.9); LYMPHOCYTES % 27.7 % (15.0-51.0); MEAN CORPUSCULAR HEMOGLOBIN 30.6 pg (29.0-33.0); MEAN CORPUSCULAR HGB CONC 33.7 g/dl (32.0-37.0); MEAN PLATELET VOLUME 11.4 fl (7.4-10.4); MONOCYTE # 0.5 10^3/ul (0.3-0.9); MONOCYTES % 5.8 % (0.0-11.0); NEUTROPHIL # 4.6 10^3/ul (1.6-7.5); NEUTROPHILS % 57.6 % (39.0-77.0); PLATELET COUNT 220 10^3/UL (140-415); RED CELL DISTRIBUTION WIDTH 13.9 % (11.5-14.5); WHITE BLOOD COUNT 7.9 10^3/ul (4.8-10.8)
[2017-02-28 06:54] LABS: MAGNESIUM 2.2 mg/dl (1.7-2.5); PHOSPHORUS 4.4 mg/dl (2.5-4.9)
[2017-02-28 07:03] LABS: CALCIUM 9.1 mg/dl (8.4-10.2); CREATININE 3.78 mg/dl (0.61-1.24)
[2017-02-28 07:54] VITALS: BP 135/67; RESP 18
--- NOTE | 2017-02-28 08:42 | CONS ---
Date/Time of Note Date/Time of Note DATE: 02/28/17 TIME: 08:40 Assessment/Plan Assessment/Plan Additional Assessment/Plan 1. Renal fx has improved, no need for HD, will need to be followed closely as OP. 2. Anemia, stable, likley source is esophagitis, on PPI q12 3. BP is well controlled. 4. Left arm fx, Needs ortho follow and or PT Consultation Date/Type/Reason Admit Date/Time Feb 24, 2017 at 10:28 Type of Consultation: neph Referring Provider: ROBERT EDEN Detailed Summary Respiratory: No cough, No shortness of breath Cardiovascular: No chest pain Gastrointestinal: no complaints Genitourinary: no complaints Exam/Review of Systems Vital Signs Vitals Vital Signs Date Time Temp Pulse Resp B/P Pulse Ox O2 Delivery O2 Flow Rate FiO2 02/28/17 07:54 98.4 61 18 135/67 96 02/27/17 09:42 Room Air 02/26/17 10:45 2.0 Intake and Output 02/27/17 02/27/17 02/28/17 15:00 23:00 07:00 Intake Total 660 ml 2180 ml Output Total 1050 ml 1400 ml Balance -390 ml 780 ml Exam Neck: No jvd Respiratory: clear to auscultation Cardiovascular: regular rate and rhythm Gastrointestinal: soft Extremities: No edema (and no calf tend) Results Result Diagram: 02/28/17 0505 02/28/17 0505 Results 24 hrs Laboratory Tests Test 02/28/17 05:05 White Blood Count 7.9 Red Blood Count 3.10 L Hemoglobin 9.5 L Hematocrit 28.2 L Mean Corpuscular Volume 91.0 Mean Corpuscular Hemoglobin 30.6 Mean Corpuscular Hemoglobin Concent 33.7 Red Cell Distribution Width 13.9 Platelet Count 220 Mean Platelet Volume 11.4 H Neutrophils % 57.6 Lymphocytes % 27.7 Monocytes % 5.8 Eosinophils % 8.1 H Basophils % 0.4 Nucleated Red Blood Cells % 0.0 Neutrophils # 4.6 Lymphocytes # 2.2 Monocytes # 0.5 Eosinophils # 0.6 H Basophils # 0.0 Nucleated Red Blood Cells # 0.0 Sodium Level 143 Potassium Level 4.0 Chloride Level 114 H Carbon Dioxide Level 18 L Anion Gap 15 Blood Urea Nitrogen 33 H Creatinine 3.78 H Glucose Level 87 Calcium Level 9.1 Phosphorus Level 4.4 Magnesium Level 2.2 Medications Medications Current Medications Epoetin Eris (Epogen (Esrd)) 10,000 units MoWeFr@17 SC Last administered on 02/25 17:53; Admin Dose 10,000 UNITS; Start 02/25/17 at 17:00 Allopurinol (Zyloprim) 100 mg DAILY PO Last administered on 02/27/17 09:43; Admin Dose 100 MG; Start 02/25/17 at 09:00 Amlodipine Besylate (Norvasc) 5 mg DAILY PO Last administered on 02/27/17 09: 43; Admin Dose 5 MG; Start 02/24/17 at 12:00 Clonazepam (Klonopin) 1 mg QHS PO Last administered on 02/27/17 20:53; Admin Dose 1 MG; Start 02/24/17 at 21:00 Sertraline HCl (Zoloft) 50 mg QHS PO Last administered on 02/27/17 20:53; Admin Dose 50 MG; Start 02/24/17 at 21:00 Tramadol HCl (Ultram) 50 mg Q6H PRN PO PAIN Last administered on 02/27/17 12: 33; Admin Dose 50 MG; Start 02/24/17 at 12:00 Trazodone HCl (Desyrel) 150 mg QHS PO Last administered on 02/27/17 20:53; Admin Dose 150 MG; Start 02/24/17 at 21:00 Levetiracetam (Keppra) 500 mg TID PO Last administered on 02/27/17 20:53; Admin Dose 500 MG; Start 02/24/17 at 13:00 Multivit/Ca Carb/ B Cmplx/FA/Prenat (Ronda-Joo) 1 tab DAILY PO Last administered on 02/27/17 09:43; Admin Dose 1 TAB; Start 02/25/17 at 09:00 Tamsulosin HCl 0.4 mg 0.4 mg HS PO Last administered on 02/27/17 20:53; Admin Dose 0.4 MG; Start 02/25/17 at 21:00 Sodium Chloride (1/2 NS) 1,000 ml @ 75 mls/hr [id number] IV Last administered on 02/28/17 01:39; Admin Dose 75 MLS/HR; Start 02/25/17 at 08:00 Pantoprazole (Protonix Tab) 40 mg BID@18 PO Last administered on 02/28/17 05:19; Admin Dose 40 MG; Start 02/25/17 at 18:00 Patient Own Medication 1 ea QHS PRN PO INSOMNIA Last administered on 02/28/17 00:45; Admin Dose 1 EA; Start 02/25/17 at 15:30 Acetaminophen (Tylenol Tab) 650 mg Q6H PRN PO PAIN AND OR ELEVATED TEMP Last administered on 02/27/17 09:45; Admin Dose 650 MG; Start 02/26/17 at 21:30 FRED CARMONA MD Feb 28, 2017 08:42
[2017-02-28] MEDS: LEVETIRACETAM 500 MG TAB PO SCH ×3 (09:10→20:51)
[2017-02-28] MEDS: MULTIVIT/CA CARB/B CMPLX/FA TAB PO SCH (09:11)
[2017-02-28] MEDS: AMLODIPINE 5 MG TAB PO SCH (09:11)
[2017-02-28] MEDS: ALLOPURINOL 100 MG TAB PO SCH (09:11)
--- NOTE | 2017-02-28 11:24 | PN ---
Date/Time of Note Date/Time of Note DATE: 02/28/17 TIME: 11:11 Assessment/Plan VTE Prophylaxis VTE Prophylaxis Intervention: SCD's Lines/Catheters [facility] Per[facility] IV Urinary Cath still in place: No Assessment/Plan Assessment/Plan 66-year-old male with: 1. CKD advanced, appreciate Dr Anthony's assistance Renal function seems to be improving back to recent baseline No Need for HD so far Patient will need close follow up with Nephrology as outpatient D/c plan for Home tomorrow Continue medical management 2. Anemia of chronic disease, workup in progress. Most likely secondary to chronic kidney disease, s/p EGD and colonoscopy (repeated yesterday) with polypectomy done. Appreciate Dr Barreto's assistance Hb stable at 9.3 Continue Epo 3. UTI, corynebacterium species, sensitive to Keflex, will plan for 5 to 7 days treatment, renal dosing 4. Hypertension. Continue Norvasc. 5. Major depressive disorder. Continue outpatient medication. 6. Seizure disorder. Continue home meds. 7. Gout. Continue allopurinol. 8. Peripheral neuropathy. Continue Ultram, Tylenol as needed for pain. 9. Gastroesophageal reflux disease. Continue Protonix. 10. Old nondisplaced proximal left humeral fracture with overlying callous formation indicating healing, no further intervention for now, can f/u with ortho as outpatient if needed, will refer to Dr Guevara as needed. Prophylaxis: Continue Protonix and SCDs for DVT prophylaxis. DISPOSITION: Follow up pathology from polyp removed, h/h stable and Nephrology following. D/c planning for tomorrow if Ok with Nephrology. 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 Hb stable Appreciate recs from Dr Anthony and Dr Barreto Exam/Review of Systems Vital Signs Vitals Vital Signs Date Time Temp Pulse Resp B/P Pulse Ox O2 Delivery O2 Flow Rate FiO2 02/28/17 07:54 98.4 61 18 135/67 96 02/27/17 09:42 Room Air 02/26/17 10:45 2.0 Intake and Output 02/27/17 02/27/17 02/28/17 15:00 23:00 07:00 Intake Total 660 ml 2180 ml Output Total 1050 ml 1400 ml Balance -390 ml 780 ml Exam Constitutional: alert, oriented, well developed Respiratory: clear to auscultation, normal air movement Cardiovascular: nl pulses, regular rate and rhythm Gastrointestinal: non-tender, soft Musculoskeletal: nl extremities to inspection Extremities: normal pulses, other (no edema, clubbing or cyanosis ) 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6 H Basophils # 0.0 Nucleated Red Blood Cells # 0.0 Sodium Level 143 Potassium Level 4.0 Chloride Level 114 H Carbon Dioxide Level 18 L Anion Gap 15 Blood Urea Nitrogen 33 H Creatinine 3.78 H Glucose Level 87 Calcium Level 9.1 Phosphorus Level 4.4 Magnesium Level 2.2 Medications Medications Current Medications Epoetin Eris (Epogen (Esrd)) 10,000 units MoWeFr@17 SC Last administered on 02/25 17:53; Admin Dose 10,000 UNITS; Start 02/25/17 at 17:00 Allopurinol (Zyloprim) 100 mg DAILY PO Last administered on 02/28/17 09:11; Admin Dose 100 MG; Start 02/25/17 at 09:00 Amlodipine Besylate (Norvasc) 5 mg DAILY PO Last administered on 02/28/17 09: 11; Admin Dose 5 MG; Start 02/24/17 at 12:00 Clonazepam (Klonopin) 1 mg QHS PO Last administered on 02/27/17 20:53; Admin Dose 1 MG; Start 02/24/17 at 21:00 Sertraline HCl (Zoloft) 50 mg QHS PO Last administered on 02/27/17 20:53; Admin Dose 50 MG; Start 02/24/17 at 21:00 Tramadol HCl (Ultram) 50 mg Q6H PRN PO PAIN Last administered on 02/27/17 12: 33; Admin Dose 50 MG; Start 02/24/17 at 12:00 Trazodone HCl (Desyrel) 150 mg QHS PO Last administered on 02/27/17 20:53; Admin Dose 150 MG; Start 02/24/17 at 21:00 Levetiracetam (Keppra) 500 mg TID PO Last administered on 02/28/17 09:10; Admin Dose 500 MG; Start 02/24/17 at 13:00 Multivit/Ca Carb/ B Cmplx/FA/Prenat (Ronda-Joo) 1 tab DAILY PO Last administered on 02/28/17 09:11; Admin Dose 1 TAB; Start 02/25/17 at 09:00 Tamsulosin HCl 0.4 mg 0.4 mg HS PO Last administered on 02/27/17 20:53; Admin Dose 0.4 MG; Start 02/25/17 at 21:00 Sodium Chloride (1/2 NS) 1,000 ml @ 75 mls/hr [id number] IV Last administered on 02/28/17 01:39; Admin Dose 75 MLS/HR; Start 02/25/17 at 08:00 Pantoprazole (Protonix Tab) 40 mg BID@06,18 PO Last administered on 02/28/17 05:19; Admin Dose 40 MG; Start 02/25/17 at 18:00 Patient Own Medication 1 ea QHS PRN PO INSOMNIA Last administered on 02/28/17 00:45; Admin Dose 1 EA; Start 02/25/17 at 15:30 Acetaminophen (Tylenol Tab) 650 mg Q6H PRN PO PAIN AND OR ELEVATED TEMP Last administered on 02/27/17 09:45; Admin Dose 650 MG; Start 02/26/17 at 21:30 ROBERT EDEN Feb 28, 2017 11:24
[2017-02-28] MEDS: CEPHALEXIN 250 MG CAP PO SCH ×2 (12:33→22:16)
[2017-02-28] MEDS: EPOETIN 10000 UNITS/1 ML INJ (ESRD) SC SCH (17:34)
[2017-02-28 20:29] VITALS: BP 161/88; RESP 20
[2017-02-28] MEDS: traZODone 50 MG TAB PO SCH (20:51)
[2017-02-28] MEDS: SERTRALINE 50 MG TAB PO SCH (20:51)
[2017-02-28] MEDS: clonAZEPAM 0.5 MG TAB PO SCH (20:51)
[2017-02-28] MEDS: TAMSULOSIN (SR) 0.4 MG CAP PO SCH (20:51)
[2017-02-28 21:30] VITALS: BP 146/74
[2017-02-28] MEDS: LORATADINE 10 MG TAB PO SCH (22:16)
[2017-03-01 05:19] LABS: ADD SCAN DIFF NO
[2017-03-01] MEDS: SOD CHLORIDE 0.45% 1,000 ML IV SCH (05:20)
[2017-03-01 05:21] LABS: BASOPHILS % 0.2 % (0.0-2.0); EOSINOPHILS # 0.6 10^3/ul (0.0-0.5); EOSINOPHILS % 6.2 % (0.0-7.0); HEMATOCRIT 30.7 % (42.0-52.0); HEMOGLOBIN 10.1 g/dl (14.0-18.0); LYMPHOCYTES # 1.3 10^3/ul (0.8-2.9); LYMPHOCYTES % 13.6 % (15.0-51.0); MEAN CORPUSCULAR HGB CONC 32.9 g/dl (32.0-37.0); MEAN CORPUSCULAR VOLUME 91.1 fl (82.0-101.0); MEAN PLATELET VOLUME 11.3 fl (7.4-10.4); MONOCYTE # 0.5 10^3/ul (0.3-0.9); MONOCYTES % 5.2 % (0.0-11.0); NEUTROPHIL # 7.1 10^3/ul (1.6-7.5); NEUTROPHILS % 74.5 % (39.0-77.0); PLATELET COUNT 239 10^3/UL (140-415); RED BLOOD COUNT 3.37 10^6/ul (4.70-6.10); RED CELL DISTRIBUTION WIDTH 13.9 % (11.5-14.5); WHITE BLOOD COUNT 9.6 10^3/ul (4.8-10.8)
[2017-03-01 05:49] LABS: CALCIUM 9.3 mg/dl (8.4-10.2); CREATININE 4.2 mg/dl (0.61-1.24); PHOSPHORUS 3.2 mg/dl (2.5-4.9); POTASSIUM 4.1 mmol/L (3.5-5.1)
[2017-03-01] MEDS: PANTOPRAZOLE (EC) 40 MG TAB PO SCH (06:08)
[2017-03-01 07:51] VITALS: BP 135/63; RESP 18
[2017-03-01] MEDS: LEVETIRACETAM 500 MG TAB PO SCH ×2 (08:27→12:31)
[2017-03-01] MEDS: LORATADINE 10 MG TAB PO SCH (08:27)
[2017-03-01] MEDS: CEPHALEXIN 250 MG CAP PO SCH (08:27)
[2017-03-01] MEDS: ALLOPURINOL 100 MG TAB PO SCH (08:27)
[2017-03-01] MEDS: MULTIVIT/CA CARB/B CMPLX/FA TAB PO SCH (08:27)
[2017-03-01] MEDS: AMLODIPINE 5 MG TAB PO SCH (08:28)
--- NOTE | 2017-03-01 08:32 | CONS ---
Date/Time of Note Date/Time of Note DATE: 03/01/17 TIME: 08:29 Assessment/Plan Assessment/Plan Additional Assessment/Plan 1. Anemia likely related to esophagitis, on q12 PPI and Hct is stable 2. CKD sec tubersclerosis and secondary focal sclerosis, min rise is Scr, ok to dc with OP follow 1 week 3. Keftex started, ? dc (urine cult noted) Consultation Date/Type/Reason Admit Date/Time Feb 24, 2017 at 10:28 Type of Consultation: neph Referring Provider: ROBERT EDEN Detailed Summary Respiratory: cough (that is not productive) Cardiovascular: No chest pain Gastrointestinal: no complaints, other (no sxs gi bleeding) Genitourinary: other (mild urinary frequency without dysuria) Exam/Review of Systems Vital Signs Vitals Vital Signs Date Time Temp Pulse Resp B/P Pulse Ox O2 Delivery O2 Flow Rate FiO2 03/01/17 07:51 99.1 89 18 135/63 93 02/27/17 09:42 Room Air 02/26/17 10:45 2.0 Intake and Output 02/28/17 02/28/17 03/01/17 15:00 23:00 07:00 Intake Total 2210 ml 1340 ml Output Total 1200 ml 1100 ml Balance 1010 ml 240 ml Exam Neck: No jvd Respiratory: clear to auscultation Cardiovascular: regular rate and rhythm Gastrointestinal: soft Extremities: No edema Results Result Diagram: 03/01/17 0435 03/01/17 0435 Results 24 hrs Laboratory Tests Test 03/01/17 04:35 White Blood Count 9.6 # Red Blood Count 3.37 L Hemoglobin 10.1 L Hematocrit 30.7 L Mean Corpuscular Volume 91.1 Mean Corpuscular Hemoglobin 30.0 Mean Corpuscular Hemoglobin Concent 32.9 Red Cell Distribution Width 13.9 Platelet Count 239 Mean Platelet Volume 11.3 H Neutrophils % 74.5 Lymphocytes % 13.6 L Monocytes % 5.2 Eosinophils % 6.2 Basophils % 0.2 Nucleated Red Blood Cells % 0.0 Neutrophils # 7.1 Lymphocytes # 1.3 Monocytes # 0.5 Eosinophils # 0.6 H Basophils # 0.0 Nucleated Red Blood Cells # 0.0 Sodium Level 144 Potassium Level 4.1 Chloride Level 114 H Carbon Dioxide Level 19 L Anion Gap 15 Blood Urea Nitrogen 33 H Creatinine 4.20 H Glucose Level 103 Calcium Level 9.3 Phosphorus Level 3.2 Magnesium Level 2.0 Medications Medications Current Medications Epoetin Eris (Epogen (Esrd)) 10,000 units MoWeFr@17 SC Last administered on 17:34; Admin Dose 10,000 UNITS; Start 02/25/17 at 17:00 Allopurinol (Zyloprim) 100 mg DAILY PO Last administered on 02/28/17 09:11; Admin Dose 100 MG; Start 02/25/17 at 09:00 Amlodipine Besylate (Norvasc) 5 mg DAILY PO Last administered on 02/28/17 09: 11; Admin Dose 5 MG; Start 02/24/17 at 12:00 Clonazepam (Klonopin) 1 mg QHS PO Last administered on 02/28/17 20:51; Admin Dose 1 MG; Start 02/24/17 at 21:00 Sertraline HCl (Zoloft) 50 mg QHS PO Last administered on 02/28/17 20:51; Admin Dose 50 MG; Start 02/24/17 at 21:00 Tramadol HCl (Ultram) 50 mg Q6H PRN PO PAIN Last administered on 02/27/17 12: 33; Admin Dose 50 MG; Start 02/24/17 at 12:00 Trazodone HCl (Desyrel) 150 mg QHS PO Last administered on 02/28/17 20:51; Admin Dose 150 MG; Start 02/24/17 at 21:00 Levetiracetam (Keppra) 500 mg TID PO Last administered on 02/28/17 20:51; Admin Dose 500 MG; Start 02/24/17 at 13:00 Multivit/Ca Carb/ B Cmplx/FA/Prenat (Ronda-Joo) 1 tab DAILY PO Last administered on 02/28/17 09:11; Admin Dose 1 TAB; Start 02/25/17 at 09:00 Tamsulosin HCl 0.4 mg 0.4 mg HS PO Last administered on 02/28/17 20:51; Admin Dose 0.4 MG; Start 02/25/17 at 21:00 Sodium Chloride (1/2 NS) 1,000 ml @ 75 mls/hr [id number] IV Last administered on 02/28/17 16:50; Admin Dose 75 MLS/HR; Start 02/25/17 at 08:00 Pantoprazole (Protonix Tab) 40 mg BID@,18 PO Last administered on 03/01/17 06:08; Admin Dose 40 MG; Start 02/25/17 at 18:00 Patient Own Medication 1 ea QHS PRN PO INSOMNIA Last administered on 02/28/17 00:45; Admin Dose 1 EA; Start 02/25/17 at 15:30 Acetaminophen (Tylenol Tab) 650 mg Q6H PRN PO PAIN AND OR ELEVATED TEMP Last administered on 02/27/17 09:45; Admin Dose 650 MG; Start 02/26/17 at 21:30 Cephalexin (Keflex) 250 mg Q12 PO Last administered on 02/28/17 22:16; Admin Dose 250 MG; Start 02/28/17 at 13:00 Loratadine (Claritin) 10 mg DAILY PO Last administered on 02/28/17 22:16; Admin Dose 10 MG; Start 02/28/17 at 21:30 FRED CARMONA MD Mar 01, 2017 08:32
--- NOTE | 2017-03-01 10:58 | PN ---
Date/Time of Note Date/Time of Note DATE: 03/01/17 TIME: 10:54 Assessment/Plan VTE Prophylaxis VTE Prophylaxis Intervention: SCD's Lines/Catheters [facility] Type ([facility]): Peripheral IV Urinary Cath still in place: No Assessment/Plan Assessment/Plan 66-year-old male with: 1. CKD advanced, appreciate Dr Anthony's assistance Renal function seems to be improving back to recent baseline No Need for HD so far Patient will need close follow up with Nephrology as outpatient , 1 week D/c plan for Home today 2. Anemia of chronic disease, workup in progress. Most likely secondary to chronic kidney disease, s/p EGD and colonoscopy (repeated yesterday) with polypectomy done. Appreciate Dr Barreto's assistance Hb stable at 10.1 Continue Epo 3. UTI, corynebacterium species, sensitive to Keflex, will plan for 3 more days treatment, renal dosing 4. Hypertension. Continue Norvasc. 5. Major depressive disorder. Continue outpatient medication. 6. Seizure disorder. Continue home meds. 7. Gout. Continue allopurinol. 8. Peripheral neuropathy. Continue Ultram, Tylenol as needed for pain. 9. Gastroesophageal reflux disease. Continue Protonix. 10. Old nondisplaced proximal left humeral fracture with overlying callous formation indicating healing, no further intervention for now, can f/u with ortho as outpatient if needed, will refer to Dr Guevara as needed. Prophylaxis: Continue Protonix and SCDs for DVT prophylaxis. DISPOSITION: Follow up pathology from polyp removed, h/h stable and Nephrology follow up in 1 week. Subjective 24 Hr Interval Summary Free Text/Dictation Patient doing well Will be discharged today with outpatient follow up with PCP and Nephrology in 1 week Exam/Review of Systems Vital Signs Vitals Vital Signs Date Time Temp Pulse Resp B/P Pulse Ox O2 Delivery O2 Flow Rate FiO2 03/01/17 07:51 99.1 89 18 135/63 93 02/27/17 09:42 Room Air 02/26/17 10:45 2.0 Intake and Output 02/28/17 02/28/17 03/01/17 15:00 23:00 07:00 Intake Total 2210 ml 1340 ml Output Total 1200 ml 1100 ml Balance 1010 ml 240 ml Exam Constitutional: alert, oriented, other (at baseline ), well developed Respiratory: clear to auscultation, normal air movement Cardiovascular: nl pulses, regular rate and rhythm Gastrointestinal: non-tender, soft Musculoskeletal: nl extremities to inspection Extremities: normal pulses 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, nl mental status, nl speech, other (baseline muscle strength ) Results Result Diagram: 03/01/175 03/01/17 0435 Results 24 hrs Laboratory Tests Test 03/01/17 04:35 White Blood Count 9.6 # Red Blood Count 3.37 L Hemoglobin 10.1 L Hematocrit 30.7 L Mean Corpuscular Volume 91.1 Mean Corpuscular Hemoglobin 30.0 Mean Corpuscular Hemoglobin Concent 32.9 Red Cell Distribution Width 13.9 Platelet Count 239 Mean Platelet Volume 11.3 H Neutrophils % 74.5 Lymphocytes % 13.6 L Monocytes % 5.2 Eosinophils % 6.2 Basophils % 0.2 Nucleated Red Blood Cells % 0.0 Neutrophils # 7.1 Lymphocytes # 1.3 Monocytes # 0.5 Eosinophils # 0.6 H Basophils # 0.0 Nucleated Red Blood Cells # 0.0 Sodium Level 144 Potassium Level 4.1 Chloride Level 114 H Carbon Dioxide Level 19 L Anion Gap 15 Blood Urea Nitrogen 33 H Creatinine 4.20 H Glucose Level 103 Calcium Level 9.3 Phosphorus Level 3.2 Magnesium Level 2.0 Medications Medications Current Medications Epoetin Eris (Epogen (Esrd)) 10,000 units MoWeFr@17 SC Last administered on 17:34; Admin Dose 10,000 UNITS; Start 02/25/17 at 17:00 Allopurinol (Zyloprim) 100 mg DAILY PO Last administered on 03/01/17 08:27; Admin Dose 100 MG; Start 02/25/17 at 09:00 Amlodipine Besylate (Norvasc) 5 mg DAILY PO Last administered on 03/01/17 08: 28; Admin Dose 5 MG; Start 02/24/17 at 12:00 Clonazepam (Klonopin) 1 mg QHS PO Last administered on 02/28/17 20:51; Admin Dose 1 MG; Start 02/24/17 at 21:00 Sertraline HCl (Zoloft) 50 mg QHS PO Last administered on 02/28/17 20:51; Admin Dose 50 MG; Start 02/24/17 at 21:00 Tramadol HCl (Ultram) 50 mg Q6H PRN PO PAIN Last administered on 02/27/17 12: 33; Admin Dose 50 MG; Start 02/24/17 at 12:00 Trazodone HCl (Desyrel) 150 mg QHS PO Last administered on 02/28/17 20:51; Admin Dose 150 MG; Start 02/24/17 at 21:00 Levetiracetam (Keppra) 500 mg TID PO Last administered on 03/01/17 08:27; Admin Dose 500 MG; Start 02/24/17 at 13:00 Multivit/Ca Carb/ B Cmplx/FA/Prenat (Ronda-Joo) 1 tab DAILY PO Last administered on 03/01/17 08:27; Admin Dose 1 TAB; Start 02/25/17 at 09:00 Tamsulosin HCl 0.4 mg 0.4 mg HS PO Last administered on 02/28/17 20:51; Admin Dose 0.4 MG; Start 02/25/17 at 21:00 Sodium Chloride (1/2 NS) 1,000 ml @ 75 mls/hr [id number] IV Last administered on 02/28/17 16:50; Admin Dose 75 MLS/HR; Start 02/25/17 at 08:00 Pantoprazole (Protonix Tab) 40 mg BID@06,18 PO Last administered on 03/01/17 06:08; Admin Dose 40 MG; Start 02/25/17 at 18:00 Patient Own Medication 1 ea QHS PRN PO INSOMNIA Last administered on 02/28/17 00:45; Admin Dose 1 EA; Start 02/25/17 at 15:30 Acetaminophen (Tylenol Tab) 650 mg Q6H PRN PO PAIN AND OR ELEVATED TEMP Last administered on 02/27/17 09:45; Admin Dose 650 MG; Start 02/26/17 at 21:30 Cephalexin (Keflex) 250 mg Q12 PO Last administered on 03/01/17 08:27; Admin Dose 250 MG; Start 02/28/17 at 13:00 Loratadine (Claritin) 10 mg DAILY PO Last administered on 03/01/17 08:27; Admin Dose 10 MG; Start 02/28/17 at 21:30 ROBERT EDEN Mar 01, 2017 10:58
--- NOTE | 2017-03-01 11:05 | PDOCDIS ---
Discharge Instructions CONDITION Patient Condition: Stable HOME CARE INSTRUCTIONS: Special Diet: Renal diet ACTIVITY: Activity Restrictions Comment: resume home activity FOLLOW UP/APPOINTMENTS Appointments Follow up with PCP and Hand [facility] as outpatient in 1 week ROBERT EDEN Mar 01, 2017 11:05
[2017-03-01] MEDS ORDERED: TAMS-14 PO (11:07)
[2017-03-01] MEDS ORDERED: NEPH PO (11:07)
[2017-03-01] MEDS ORDERED: CEPH250C PO (11:07)
[2017-03-01 20:50] LABS: ALKALINE PHOSPHATASE 121 U/L (40-115); PLACENTAL ISOENZYMES 0 % (UNDETECTABLE)
== END 2017-03-01 15:00 | disposition home or self-care (01) | DRG 683 ==
LOC: E/R 09:17 → PP2 10:28
PROVIDERS: ADMIT Internal Medicine; ATTEND Internal Medicine
PROC: 30233N1 Transfusion of Nonautologous Red Blood Cells into Peripheral Vein, Percutaneous Approach (ICD-10-PCS; 2017-02-25)
PROC: 0DB68ZX Excision of Stomach, Via Natural or Artificial Opening Endoscopic, Diagnostic (ICD-10-PCS; 2017-02-26)
PROC: 0DJD8ZZ Inspection of Lower Intestinal Tract, Via Natural or Artificial Opening Endoscopic (ICD-10-PCS; 2017-02-26 10:00)
PROC: 0DBN8ZZ Excision of Sigmoid Colon, Via Natural or Artificial Opening Endoscopic (ICD-10-PCS; principal; 2017-02-27 08:00)
DX: I12.9 Hypertensive chronic kidney disease with stage 1 through stage 4 chronic kidney disease, or unspecified chronic kidney disease (principal); E87.2 Acidosis; E87.0 Hyperosmolality and hypernatremia; K76.0 Fatty (change of) liver, not elsewhere classified; N39.0 Urinary tract infection, site not specified; F32.9 Major depressive disorder, single episode, unspecified; D63.1 Anemia in chronic kidney disease; G40.909 Epilepsy, unspecified, not intractable, without status epilepticus; E21.3 Hyperparathyroidism, unspecified; M10.9 Gout, unspecified; G62.9 Polyneuropathy, unspecified; N40.1 Benign prostatic hyperplasia with lower urinary tract symptoms; R35.0 Frequency of micturition; R39.198 Other difficulties with micturition; S42.92XD Fracture of left shoulder girdle, part unspecified, subsequent encounter for fracture with routine healing; X58.XXXD Exposure to other specified factors, subsequent encounter; N18.3 Chronic kidney disease, stage 3 (moderate); K64.4 Residual hemorrhoidal skin tags; D12.5 Benign neoplasm of sigmoid colon; K57.30 Diverticulosis of large intestine without perforation or abscess without bleeding; K20.9 Esophagitis, unspecified; K29.60 Other gastritis without bleeding; K21.9 Gastro-esophageal reflux disease without esophagitis
CPT/HCPCS: 36415; 36430; 36600; 73030; 76705; 76775; 76856; 80048; 80053; 81001; 81003; 82570; 82607; 82728; 82746; 82803; 83540; 83735; 84080; 84100; 84153; 84154; 84300; 84484; 85025; 85610; 85730; 86320; 86850; 86900; 86901; 86920; 87086; 93005; 96365; 96366; 96375; 96376; J2250; J2405; J3010; J3475; J7030; J7070; P9016; Q4081

== ENCOUNTER 2017-04-29 06:10 | Day surgery (SDC) | END 2017-04-29 11:10 | disposition home or self-care (01) | DX: I12.0 Hypertensive chronic kidney disease with stage 5 chronic kidney disease or end stage renal disease (principal); N18.6 End stage renal disease; N40.0 Benign prostatic hyperplasia without lower urinary tract symptoms | CPT/HCPCS: 36821; 71010; 84132; 93005; C1725; J0131; J0690; J1100; J1644; J2405; J3010 ==

== ENCOUNTER 2017-06-03 13:27 | Inpatient (IN) | payer BC ==
[~2017-06-03] VITALS: Ht 180.3 cm; Wt 93.0 kg
[~2017-06-03 13:27] MED LIST changes: +ALLO100T PO; -AMLO-145 PO; +AMLO5TAB4 PO; +LEVE100018 PO; +LEVE500S8 PO; -LEVE500T34 PO; +NEPH PO; +PANT40TA3 PO; +SERT50TA PO; +TAMS-14 PO; +TRAM-40 PO; +TRAZ150T65 PO; -TRAZ300T15 PO
[2017-06-03] MEDS ORDERED: LIDOCAINE 1% (MDV) 20 ML INJ ONE (15:36)
[2017-06-03] MEDS ORDERED: HEPARIN 1000 UNITS/ML 10 ML INJ ONE (15:36)
[2017-06-03] MEDS ORDERED: FENTAnyl 50 MCG/ML VIAL ONE (15:41)
[2017-06-03] MEDS ORDERED: MIDAZOLAM 1 MG/ML 2 ML INJ ONE (15:41)
--- NOTE | 2017-06-03 16:08 | SIPON ---
Date/Time of Note Date/Time of Note DATE: 06/03/17 TIME: 16:07 Operative Report Preoperative Diagnosis ESRD Postoperative Diagnosis same Operation/Procedure Performed R TAYA permacat Surgeon see signature line Anesthesia Type: MAC Estimated Blood Loss: minimal Transfusion Required: no Specimen: none Grafts/Implants: none Complications: no CHANTALE TREADWELL MD Jun 03, 2017 16:08
[2017-06-03] MEDS ORDERED: LEVE750T70 PO (16:55)
[2017-06-03] MEDS ORDERED: FLO1 PO (16:55)
[2017-06-03] MEDS ORDERED: [UNRECOGNIZED DRUG - CODE] PO (16:57)
[2017-06-03] MEDS ORDERED: DOCUSATE SODIUM 100 MG CAP PO PRN (17:00)
[2017-06-03] MEDS ORDERED: ONDANSETRON 4 MG TAB PO PRN (17:00)
[2017-06-03] MEDS ORDERED: NACL 0.9% 3 ML SYG IV SCH (17:00)
--- NOTE | 2017-06-03 17:48 | ERA ---
ER Documentation Chief Complaint Date/Time DATE: 06/03/17 TIME: 17:44 Chief Complaint Renal failure, needs dialysis HPI This is 66-year-old male who is sent here by his Dr. Menjivar. The patient apparently has a AV fistula that is not working and he was sent here to get a hemodialysis catheter placed and get urgent dialysis due to renal failure. The patient is not symptomatic other than feeling weak. Does not have any chest pain shortness of breath no abdominal pain vomiting diarrhea. Spoke with the patient's primary as well as Dr. Álvarez who will place the catheter ROS All systems reviewed and are negative except as per history of present illness. Medications Home Meds Active Scripts Multivit/Ca Carb/B Cmplx/Fa* (Ronda-Joo*) 1 Tab Tab, 1 TAB PO DAILY for 30 Days , TAB 3 Refills Prov:ROBERT EDEN 03/01/17 Tamsulosin Hcl* (Flomax*) 0.4 Mg Cap.er.24h, 0.4 MG PO HS for 30 Days, CAP 3 Refills Prov:ROBERT EDEN 03/01/17 Reported Medications [NaHCO3] No Conflict Check, 1 TAB PO DAILY TAKE 1 OR 2 TABS DAILY 06/03/17 Fludrocortisone* (Florinef*) 0.1 Mg Tab, 0.1 MG PO DAILY, TAB 06/03/17 Levetiracetam* (Keppra*) 750 Mg Tablet, 750 MG PO BID, TAB 06/03/17 Pantoprazole* (Protonix*) 40 Mg Tablet.dr, 40 MG PO DAILY, TAB 02/24/17 Amlodipine Besylate* (Norvasc*) 5 Mg Tablet, 5 MG PO DAILY, TAB 02/24/17 Sertraline Hcl* (Zoloft*) 50 Mg Tablet, 50 MG PO QHS, #30 TAB 02/24/17 Trazodone Hcl* (Trazodone Hcl*) 150 Mg Tablet, 150 MG PO QHS, #30 TAB 02/24/17 Clonazepam* (Klonopin*) 1 Mg Tablet, 1 MG PO QHS, TAB 02/24/17 Allopurinol* (Allopurinol*) 100 Mg Tablet, 100 MG PO DAILY, TAB 02/24/17 Discontinued Reported Medications Levetiracetam* (Keppra*) 1,000 Mg Tablet, 1000 MG PO QHS, TAB 02/24/17 Levetiracetam* (Keppra*) 500 Mg/5 Ml Solution, 750 MG PO BID, BOTTLE 02/24/17 Tramadol Hcl* (Ultram*) 50 Mg Tablet, 50 MG PO Q6H Y for PAIN, TAB 02/24/17 Allergies Allergies: Coded Allergies: No Known Allergy (Verified , 06/03/17) PMhx/Soc History of Surgery: Yes (MIDDLE TOE SEPERATION 50 YEARS AGO) Anesthesia Reaction: No Hx Neurological Disorder: No Hx Respiratory Disorders: No Hx Cardiac Disorders: Yes (HTN) Hx Psychiatric Problems: No Hx Miscellaneous Medical Probl: Yes (MIGRAINES) Hx Alcohol Use: Yes (3 YEARS AGO) Hx Substance Use: No Hx Tobacco Use: Yes (OCT 2015) FmHx Family History: No coronary disease Physical Exam Vitals Vital Signs Date Time Temp Pulse Resp B/P Pulse Ox O2 Delivery O2 Flow Rate FiO2 06/03/17 18:00 98.3 86 20 130/75 98 Room Air 06/03/17 17:00 98.3 80 20 135/76 100 Room Air 06/03/17 16:00 98.3 76 20 131/75 98 Room Air 06/03/17 13:36 98.0 78 18 129/78 99 Physical Exam C Const: Well-developed, well-nourished Head: Atraumatic, normocephalic Eyes: Normal Conjunctiva, PERRLA, EOMI, normal sclera, no nystagmus ENT: Normal External Ears, Nose and Mouth, moist mucus membranes. Neck: Full range of motion. No meningismus, no lymphadenopathy. Resp: Clear to auscultation bilaterally, no wheezing, rhonchi, rales Cardio: Regular rate and rhythm, no murmurs, S1 S2 present Abd: Soft, non tender x 4, non distended. Normal bowel sounds, no guarding or rebound, no pulsitile abdominal masses or bruits Skin: No petechiae or rashes, no ecchymosis , no maculopapular rash Back: No midline or flank tenderness Ext: No cyanosis, or edema, FROM x 4, normal inspection, neurovascularly intact x 4 Neur: Awake and alert, STR 5/5 x 4, sensation intact x 4, no focal findings, cerebellum intact Psych: Normal Mood and Affect Result Diagram: 06/03/17 1810 Results 24 hrs Laboratory Tests Test 06/03/17 18:10 White Blood Count 7.510^3/ul Red Blood Count 2.2610^6/ul Hemoglobin 6.7g/dl Hematocrit 21.3% Mean Corpuscular Volume 94.2fl Mean Corpuscular Hemoglobin 29.6pg Mean Corpuscular Hemoglobin Concent 31.5g/dl Red Cell Distribution Width 16.0% Platelet Count 56883^3/UL Mean Platelet Volume 10.5fl Neutrophils % % Lymphocytes % % Monocytes % % Eosinophils % % Basophils % % Nucleated Red Blood Cells % 0.0/100WBC Neutrophils # 10^3/ul Lymphocytes # 10^3/ul Monocytes # 10^3/ul Eosinophils # 10^3/ul Basophils # 10^3/ul Nucleated Red Blood Cells # 10^3/ul Current Medications Medications (Trade) Dose Ordered Sig/Samir Route PRN Reason Start Time Stop Time Status Last Admin Dose Admin Heparin Sodium (Porcine) (Heparin (1000 Units/ml)) 10,000 unit STK-MED ONCE .ROUTE 06/03/17 15:36 06/03/17 15:37 DC Lidocaine 20 ml 20 ml STK-MED ONCE .ROUTE 06/03/17 15:36 06/03/17 15:37 DC Heparin Sodium/ Sodium Chloride (Heparin 1000 Units/NS (A-Line)) 500 ml @ ud STK-MED ONCE .ROUTE 06/03/17 15:36 06/03/17 15:37 DC Fentanyl (Sublimaze) 100 mcg STK-MED ONCE .ROUTE 06/03/17 15:41 06/03/17 15:42 DC Midazolam HCl (Versed) 2 mg STK-MED ONCE .ROUTE 06/03/17 15:41 06/03/17 15:42 DC Allopurinol (Zyloprim) 100 mg DAILY PO 06/04/17 09:00 Amlodipine Besylate (Norvasc) 5 mg DAILY PO 06/04/17 09:00 06/04/17 09:00 DC Clonazepam (Klonopin) 1 mg QHS PO 06/03/17 21:00 Levetiracetam (Keppra) 1,000 mg QHS PO 06/03/17 21:00 Levetiracetam (Keppra) 750 mg PO 06/03/17 17:00 Multivit/Ca Carb/ B Cmplx/FA/Prenat (Ronda-Joo) 1 tab DAILY PO 06/04/17 09:00 Pantoprazole (Protonix Tab) 40 mg DAILY PO 06/04/17 09:00 06/04/17 09:00 DC Sertraline HCl (Zoloft) 50 mg QHS PO 06/03/17 21:00 Tamsulosin HCl (Flomax) 0.4 mg HS PO 06/03/17 21:00 Tramadol HCl (Ultram) 50 mg Q6H PRN PO PAIN 06/03/17 17:00 06/03/17 18:09 Trazodone HCl (Desyrel) 150 mg QHS PO 06/03/17 21:00 Amlodipine Besylate (Norvasc) 5 mg DAILY PO 06/04/17 09:00 Pantoprazole (Protonix Tab) 40 mg 18 PO 06/03/17 18:00 IV Flush (NS 3 ml) 3 ml PER PROTOCOL IV 06/03/17 17:00 Ondansetron HCl (Zofran Tab) 4 mg Q6H PRN PO NAUSEA AND/OR VOMITING 06/03/17 17:00 Acetaminophen (Tylenol Tab) 650 mg Q6H PRN PO PAIN LEVEL 1-3 OR FEVER 06/03/17 17:00 Docusate Sodium (Colace) 100 mg Q12H PRN PO CONSTIPATION 06/03/17 17:00 Epoetin Eris (Epogen (Esrd)) 10,000 units TuThSa@17 [place] 06/04/17 17:00 Cyanocobalamin (Vitamin B12) 500 mcg DAILY PO 06/04/17 09:00 Folic Acid (Folic Acid) 1 mg DAILY PO 06/04/17 09:00 Procedures/MDM Patient went to the [facility] and had his catheter placed by Dr. Álvarez. We will admit to the hospital for dialysis and stabilization further workup is needed Patient is found to be anemic at 6.7 will type and cross and transfuse 2 units of packed red blood cells. He will be admitted for further anemia workup. Critical Care Time: 30 minutes Treatments/Evaluations: Close monitoring and treatment of unstable vital signs, cardiorespiratory, and neurologic status, while maintaining tight balance of fluid, respiratory, and cardiac interventions. This time includes discussing the case with the patient and the patient's family. This time does not include all procedures stated elsewhere in this record. This time also includes reviewing old records, labs and radiological studies. This time includes examining and re-examining the patient. Additionally, this time also includes arranging care with admitting and consulting physicians. Departure Diagnosis: Primary Impression: Renal failure Qualified Code: N19 - Renal failure, unspecified chronicity Additional Impression: Anemia Qualified Code: D64.9 - Anemia, unspecified type Condition: Stable SIMBA HUTCHINS DO Jun 03, 2017 17:48
[2017-06-03] MEDS: traMADol 50 MG TAB PO PRN (18:09)
[2017-06-03 18:28] LABS: ABNORMAL IP MESSAGE 1; HEMATOCRIT 21.3 % (42.0-52.0); MEAN CORPUSCULAR HEMOGLOBIN 29.6 pg (29.0-33.0); MEAN CORPUSCULAR HGB CONC 31.5 g/dl (32.0-37.0); MEAN CORPUSCULAR VOLUME 94.2 fl (82.0-101.0); MEAN PLATELET VOLUME 10.5 fl (7.4-10.4); PLATELET COUNT 211 10^3/UL (140-415); POSITIVE DIFF @See below; RED BLOOD COUNT 2.26 10^6/ul (4.70-6.10); WHITE BLOOD COUNT 7.5 10^3/ul (4.8-10.8)
[2017-06-03 18:40] LABS: HEMOGLOBIN 6.7 g/dl (14.0-18.0)
[2017-06-03 18:58] LABS: ALBUMIN/GLOBULIN RATIO 1.53; CREATININE 5.29 mg/dl (0.61-1.24); TOTAL PROTEIN 6.6 g/dl (6.1-8.1)
[2017-06-03 19:21] LABS: POTASSIUM 5.6 mmol/L (3.5-5.1)
[2017-06-03] MEDS ORDERED: ONDANSETRON 4 MG INJ IV PRN ×2 (19:30)
[2017-06-03] MEDS ORDERED: ACETAMINOPHEN 325 MG TAB PO PRN ×2 (19:30)
--- NOTE | 2017-06-03 19:42 | HP ---
Date/Time of Note Date/Time of Note DATE: 06/03/17 TIME: 19:36 Assessment/Plan VTE Prophylaxis VTE Prophylaxis Intervention: SCD's Assessment/Plan Chief Complaint/Hosp Course 1. Anemia likely secondary to end-stage renal disease Rule out GI bleed with FOBT Check reticulocyte count and LDH to rule out hemolytic anemia Check iron panel, B12 and folate Transfuse packed red blood cells Started on Epo by nephrology 2. End stage renal disease Patient had permacath placement today Plans for hemodialysis tomorrow Nephrology following 3. Hypertension Continue Norvasc 4. Seizure disorder Continue home Keppra 5. Depression Continue Zoloft 6. BPH Continue Flomax Prophylaxis: SCDs Problems: HPI/ROS Admit Date/Time Admit Date/Time June 03, 2017 Hx of Present Illness Patient is 66-year-old male with history of hypertension,seizure disorder and now end-stage renal disease status post PermCath placement today. Patient was to receive dialysis today but was noted to be anemic with a hemoglobin of 6.7. Denies any melena, denies any dizziness and has no history of anemia. ROS Constitutional: improved, no complaints Eyes: no complaints ENT: no complaints Respiratory: no complaints Cardiovascular: no complaints Gastrointestinal: no complaints Genitourinary: no complaints Musculoskeletal: no complaints Skin: no complaints Neurologic: no complaints Endocrine: no complaints Lymphatic: no complaints Psychological: nl mood/affect, no complaints Immunologic: no complaints PMH/Family/Social Past Medical History Hypertension and now end-stage renal disease Past Surgical History Surgery in the toes Family History Significant Family History: other (Renal disease) Social History Alcohol Use: rarely Drug Use: none Exam/Review of Systems Vital Signs Vitals Vital Signs Date Time Temp Pulse Resp B/P Pulse Ox O2 Delivery O2 Flow Rate FiO2 06/03/17 18:00 98.3 86 20 130/75 98 Room Air Exam Constitutional: alert, oriented Respiratory: clear to auscultation Cardiovascular: regular rate and rhythm Gastrointestinal: soft, No distended Musculoskeletal: nl extremities to inspection Labs Result Diagram: 06/03/17180906/03/171809 Medications Medications Current Medications Allopurinol (Zyloprim) 100 mg DAILY PO ; Start 06/04/17 at 09:00 Clonazepam (Klonopin) 1 mg QHS PO ; Start 06/03/17 at 21:00 Levetiracetam (Keppra) 1,000 mg QHS PO ; Start 06/03/17 at 21:00 Levetiracetam (Keppra) 750 mg PO ; Start 06/03/17 at 17:00 Multivit/Ca Carb/ B Cmplx/FA/Prenat (Ronda-Joo) 1 tab DAILY PO ; Start 06/04/17 at 09:00 Sertraline HCl (Zoloft) 50 mg QHS PO ; Start 06/03/17 at 21:00 Tamsulosin HCl (Flomax) 0.4 mg HS PO ; Start 06/03/17 at 21:00 Tramadol HCl (Ultram) 50 mg Q6H PRN PO PAIN Last administered on 06/03/17t 18: 09; Admin Dose 50 MG; Start 06/03/17 at 17:00 Trazodone HCl (Desyrel) 150 mg QHS PO ; Start 06/03/17 at 21:00 Amlodipine Besylate (Norvasc) 5 mg DAILY PO ; Start 06/04/17 at 09:00 Pantoprazole (Protonix Tab) 40 mg PO ; Start 06/03/17 at 18:00 Ondansetron HCl (Zofran Tab) 4 mg Q6H PRN PO NAUSEA AND/OR VOMITING; Start at 17:00 Acetaminophen (Tylenol Tab) 650 mg Q6H PRN PO PAIN LEVEL 1-3 OR FEVER; Start at 17:00 Docusate Sodium (Colace) 100 mg Q12H PRN PO CONSTIPATION; Start 06/03/17 at 17: 00 Epoetin Eris (Epogen (Esrd)) 10,000 units TuThSa@17 [place] ; Start 06/04/17 at 17:00 Cyanocobalamin (Vitamin B12) 500 mcg DAILY PO ; Start 06/04/17 at 09:00 Folic Acid (Folic Acid) 1 mg DAILY PO ; Start 06/04/17 at 09:00 JULIAN BARRETO Jun 03, 2017 19:42
[2017-06-03 19:47] LABS: ANISOCYTOSIS 2+ (0-0); BURR CELLS 1+ (0-0); EOSINOPHILS % (M) 5 % (0-7); HYPOCHROMASIA 1+ (0-0); MICROCYTOSIS 2+ (0-0); MONOCYTES % (M) 6 % (0-11); OVALOCYTES 1+ (0-0); PLATELET ESTIMATE NORMAL; POIKILOCYTOSIS 3+ (0-0); TEAR DROP CELLS 1+ (0-0)
[2017-06-03 20:30] VITALS: TEMP 98
[2017-06-03 21:00] VITALS: Ht 180.3 cm; Wt 93.0 kg
[2017-06-03 21:11] VITALS: BP 134/67; RESP 18
--- NOTE | 2017-06-03 22:29 | OPR ---
DATE OF OPERATION: 06/03/2017 PREOPERATIVE DIAGNOSIS: End-stage renal disease. POSTOPERATIVE DIAGNOSIS: End-stage renal disease. OPERATION PERFORMED: 1. Insertion of right internal jugular vein. 2. Tunneled hemodialysis catheter using ultrasound and fluoroscopic guidance. SURGEON: Ray Jerome MD ANESTHESIA: Local anesthesia. ESTIMATED BLOOD LOSS: Minimal. COMPLICATIONS: There were no intraprocedural complications. INDICATIONS: A 66-year-old gentleman with end-stage renal disease who needs dialysis, initiate either later today or tomorrow. He is going to need long-term dialysis. He has a left arm AV fistula that has not matured. OPERATIVE PROCEDURE: Patient was brought to the recyclable materials sorter, placed on the table in supine position. Right neck and chest wall were prepped and draped in the usual sterile fashion. I began by infiltrating over the right internal jugular vein using about 10 cc of 1% Xylocaine. Used a micropuncture needle to enter the vein under ultrasound guidance. An 0.018 wire was inserted through the needle into the vein, then a micropuncture sheath was advanced over the wire into the vein. I then advanced an 0.035 Amplatz wire through the heart and into the inferior vena cava. I then anesthetized the tract down onto the right anterior chest wall below the clavicle, made a small hakan in the skin there. I then tunneled a 19 cm tunneled hemodialysis catheter between the two incisions leaving the cuff midway between the two. I then dilated a tract over the wire and then placed serial dilators and placed a large peel-away sheath over the wire and into the right atrium. I then removed the obturator, placed the catheter through the peel-away sheath and peeled the sheath away leaving the tip of the catheter in the right atrium. There was good back flow from both ports, they flushed easily. I anchored the catheter to the skin using a 3-0 nylon suture and a 4-0 Monocryl suture was used to close the puncture site in the neck. I left appropriate amount of heparin in each port. Sterile dressings were applied. Patient was then transferred to the recovery room in stable condition. He tolerated the procedure well without complications. Dictated By: Ray Jerome MD /[email or web address] /Document#: [id number] CC: Anthony Anthony MD
[2017-06-03] MEDS: LEVETIRACETAM 750 MG TAB PO SCH (22:36)
[2017-06-03] MEDS: PANTOPRAZOLE (EC) 40 MG TAB PO SCH (22:36)
[2017-06-03] MEDS: TAMSULOSIN (SR) 0.4 MG CAP PO SCH (22:37)
[2017-06-03] MEDS: traZODone 50 MG TAB PO SCH (22:37)
[2017-06-03] MEDS: LEVETIRACETAM 500 MG TAB PO SCH (22:38)
[2017-06-03] MEDS: clonAZEPAM 0.5 MG TAB PO SCH (22:39)
[2017-06-03] MEDS: SERTRALINE 50 MG TAB PO SCH (22:39)
[2017-06-03] MEDS: ACETAMINOPHEN 325 MG TAB PO PRN (22:40)
[2017-06-04] VITALS (15 sets, daily range): BP systolic 137–150; BP diastolic 70–84; PULSE 75–88; RESP 16–20
[2017-06-04] MEDS: PANTOPRAZOLE (EC) 40 MG TAB PO SCH ×2 (05:30→18:40)
[2017-06-04 06:15] LABS: RETICULOCYTE COUNT % 1.9 % (0.5-1.5)
[2017-06-04 06:17] LABS: BASOPHILS % 0.4 % (0.0-2.0); EOSINOPHILS # 0.4 10^3/ul (0.0-0.5); EOSINOPHILS % 4.5 % (0.0-7.0); HEMATOCRIT 26.2 % (42.0-52.0); HEMOGLOBIN 8.7 g/dl (14.0-18.0); LYMPHOCYTES # 2.2 10^3/ul (0.8-2.9); LYMPHOCYTES % 27.4 % (15.0-51.0); MEAN CORPUSCULAR HEMOGLOBIN 30.2 pg (29.0-33.0); MEAN CORPUSCULAR HGB CONC 33.2 g/dl (32.0-37.0); MEAN PLATELET VOLUME 10.8 fl (7.4-10.4); MONOCYTE # 0.5 10^3/ul (0.3-0.9); MONOCYTES % 6.5 % (0.0-11.0); NEUTROPHILS % 60.7 % (39.0-77.0); PLATELET COUNT 213 10^3/UL (140-415); RED BLOOD COUNT 2.88 10^6/ul (4.70-6.10); RED CELL DISTRIBUTION WIDTH 16.4 % (11.5-14.5); WHITE BLOOD COUNT 8.2 10^3/ul (4.8-10.8)
--- NOTE | 2017-06-04 06:21 | CONS ---
DATE OF ADMISSION: 06/03/2017 DATE OF CONSULTATION: 06/03/2017 REFERRING PHYSICIAN: Anthony Anthony MD REASON FOR CONSULTATION: Dialysis access. HISTORY OF PRESENT ILLNESS: This is a 66-year-old gentleman. He is nondiabetic, hypertensive, with chronic kidney disease, now progressed to end-stage renal disease. He saw Dr. Anthony Anthony in the office earlier today and his kidney function has deteriorated, he is very anemic, and Dr. Anthony sent him to the Emergency Room to initiate hemodialysis. He called me and asked me to place a PermCath. I placed a left arm AV fistula about a month ago. It is a brachiobasilic first stage and we were planning to superficialize it at some point in the next few weeks, but we will go ahead and proceed with PermCath placement today. PAST MEDICAL HISTORY: Significant for hypertension, chronic kidney disease, gout, migraines, and benign prostatic hypertrophy. He also has depression. PAST SURGICAL HISTORY: Significant for some foot surgery 40 years ago. ALLERGIES: HE HAS NO KNOWN DRUG ALLERGIES. MEDICATIONS: Consist of: 1. Allopurinol. 2. Flomax. 3. Keppra. 4. Lasix. 5. Norvasc. 6. Protonix. 7. Trazodone. FAMILY HISTORY: His parents both very young. His father had end-stage renal disease in his 50s and from that. SOCIAL HISTORY: He is an ex-smoker. He smoked a [id number] a day for 20 years, stopped about 6 months ago. REVIEW OF SYSTEMS: He currently denies any chest pain, shortness of breath, nausea, vomiting, diarrhea and no fever and no chills. No recent weight gain or weight loss. No abdominal or back pain. PHYSICAL EXAMINATION: GENERAL: He is an elderly gentleman. He is in no distress. He is slightly disoriented. NECK: He has 2+ carotid pulses bilaterally. LUNGS: Clear. HEART: Regular rate and rhythm. LUNGS: Clear. ABDOMEN: Soft, nontender, and nondistended. EXTREMITIES: He has 2+ radial pulses bilaterally. No arm edema. He has 2+ popliteal and pedal pulses bilaterally. He has got a mild edema in both legs. SKIN: He has a left upper arm AVF, with a good thrill. The incision is healing well. LABORATORY DATA: His labs are not back yet. IMPRESSION: End-stage renal disease. Now progressing to the need for hemodialysis. PLAN: I spoke with Dr. Anthony. I am going to place a PermCath today and then he will give orders for dialysis and probably transfuse him as well. We will superficialize the fistula in a few weeks once he is in better shape. Dictated By: Ray Jerome MD /[email or web address] /Document#: [id number] CC: Anthony Anthony MD;*EndCC*
[2017-06-04 06:35] LABS: INR 1.06; PROTIME 13.8 Sec (12.2-14.2); PT RATIO 1.1
[2017-06-04 06:44] LABS: CALCIUM 8.9 mg/dl (8.4-10.2); CREATININE 5.44 mg/dl (0.61-1.24); PHOSPHORUS 6.1 mg/dl (2.5-4.9); POTASSIUM 5.5 mmol/L (3.5-5.1)
[2017-06-04 06:54] LABS: IRON 169 ug/dl (35-150)
[2017-06-04 07:05] LABS: TOTAL IRON BINDING CAPACITY 275 ug/dl (241-421)
[2017-06-04 09:00] LABS: ADD UMIC YES; UR ASCORBIC ACID NEGATIVE (NEGATIVE); UR BILIRUBIN (Dip) NEGATIVE (NEGATIVE); UR BLOOD (Dip) NEGATIVE (NEGATIVE); UR CLARITY CLEAR (CLEAR); UR COLOR STRAW (YELLOW); UR GLUCOSE (Dip) 1+ mg/dL (NEGATIVE); UR KETONES (Dip) NEGATIVE (NEGATIVE); UR LEUKOCYTE ESTERASE (Dip) NEGATIVE Leu/ul (NEGATIVE); UR NITRITE (Dip) NEGATIVE (NEGATIVE); UR RBC 0 /HPF (0-5); UR SPECIFIC GRAVITY (Dip) 1.009 (1.003-1.030); UR TOTAL PROTEIN (Dip) 2+ mg/dl (NEGATIVE); UR UROBILINOGEN (Dip) NEGATIVE (NEGATIVE)
[2017-06-04] MEDS ORDERED: AMLODIPINE 5 MG TAB PO SCH (09:00)
[2017-06-04] MEDS: FOLIC ACID 1 MG TAB PO SCH ×2 (09:00→10:54)
[2017-06-04] MEDS: CYANOCOBALAMIN 500 MCG TAB PO SCH (09:00)
[2017-06-04] MEDS: MULTIVIT/CA CARB/B CMPLX/FA TAB PO SCH (09:00)
[2017-06-04] MEDS ORDERED: PANTOPRAZOLE (EC) 40 MG TAB PO SCH (09:00)
[2017-06-04] MEDS: LEVETIRACETAM 750 MG TAB PO SCH ×3 (09:00→18:40)
[2017-06-04] MEDS: AMLODIPINE 5 MG TAB PO SCH (09:00)
[2017-06-04] MEDS: ALLOPURINOL 100 MG TAB PO SCH ×2 (09:00→10:55)
--- NOTE | 2017-06-04 09:52 | CONS ---
Date/Time of Note Date/Time of Note DATE: 06/04/17 TIME: 09:48 Assessment/Plan Assessment/Plan Problems: (1) ESRD (end stage renal disease) on dialysis Comment: to institue intial HD today... has permacath in Rt chest... AVF LUE not nearly mature yet... will need Play Therapist to arrange for outpt HD prior to d/c (2) Anemia Status: Acute Comment: s/p (-) EGD/colon in 03/05... will give another unit PRBC w HD today Qualifiers: Anemia type: unspecified type Qualified Code: D64.9 - Anemia, unspecified type (3) HTN (hypertension) Comment: controlled Consultation Date/Type/Reason Admit Date/Time Jun 03, 2017 at 17:04 Initial Consult Date Type of Consultation: renal 24 HR Interval Summary Free Text/Dictation feels a bit stronger.. got 2U PRBC last lai.. for planned initial HD today Exam/Review of Systems Vital Signs Vitals Vital Signs Date Time Temp Pulse Resp B/P Pulse Ox O2 Delivery O2 Flow Rate FiO2 06/04/17 08:04 98.3 87 18 139/73 95 06/03/17 20:30 Room Air Intake and Output 06/03/17 06/03/17 06/04/17 15:00 23:00 07:00 Intake Total 980 ml Output Total 500 ml Balance 480 ml Exam Constitutional: alert, oriented Psych: no complaints Neck: supple Respiratory: clear to auscultation Cardiovascular: regular rate and rhythm Gastrointestinal: soft Extremities: other ((+) bruit LUE, but weak) Results Result Diagram: 06/04/17 0504 06/04/17 0504 Results 24 hrs Laboratory Tests Test 06/03/17 18:10 06/04/17 05:00 06/04/17 05:04 White Blood Count 7.5 # 8.2 Red Blood Count 2.26 #L 2.88 #L Hemoglobin 6.7 #*L 8.7 #L Hematocrit 21.3 #L 26.2 #L Mean Corpuscular Volume 94.2 91.0 Mean Corpuscular Hemoglobin 29.6 30.2 Mean Corpuscular Hemoglobin Concent 31.5 L 33.2 Red Cell Distribution Width 16.0 H 16.4 H Platelet Count 211 213 Mean Platelet Volume 10.5 H 10.8 H Neutrophils % 60.7 Segmented Neutrophils % (Manual) 50 Band Neutrophils % (Manual) 1 Lymphocytes % 27.4 Lymphocytes % (Manual) 39 Monocytes % 6.5 Monocytes % (Manual) 6 Eosinophils % 4.5 Eosinophils % (Manual) 5 Basophils % 0.4 Nucleated Red Blood Cells % 0.0 0.0 Neutrophils # 5.0 Neutrophils # (Manual) 3.8 Band Neutrophils # 0.0 Absolute Lymphocytes (Manual) 2.9 Lymphocytes # 2.2 Monocytes # 0.5 Absolute Monocytes (Manual) 0.4 Eosinophils # 0.4 Basophils # 0.0 Nucleated Red Blood Cells # 0.0 Pathologist Review (Hematology) Y Platelet Estimate NORMAL Hypochromasia 1+ Poikilocytosis 3+ Anisocytosis 2+ Microcytosis 2+ Macrocytosis 1+ Tear Drop Cells 1+ Ovalocytes 1+ Sodium Level 139 140 Potassium Level 5.6 H 5.5 H Chloride Level 112 H 113 H Carbon Dioxide Level 16 L 17 L Anion Gap 17 H 16 Blood Urea Nitrogen 71 H 71 H Creatinine 5.29 H 5.44 H Glucose Level 90 92 Calcium Level 9.0 8.9 Total Bilirubin 0.0 L Direct Bilirubin 0.00 Indirect Bilirubin 0.0 Aspartate Amino Transf (AST/SGOT) 13 L Alanine Aminotransferase (ALT/SGPT) 28 Alkaline Phosphatase 126 H Total Protein 6.6 Albumin 4.0 Globulin 2.60 Albumin/Globulin Ratio 1.53 Urine Color STRAW Urine Clarity CLEAR Urine pH 5.0 Urine Specific [place] 1.009 Urine Ketones NEGATIVE Urine Nitrite NEGATIVE Urine Bilirubin NEGATIVE Urine Urobilinogen NEGATIVE Urine Leukocyte Esterase NEGATIVE Urine Microscopic RBC 0 Urine Microscopic WBC 0 Urine Hemoglobin NEGATIVE Urine Glucose 1+ H Urine Total Protein 2+ H Absolute Reticulocyte Count 0.053 Percent Reticulocyte Count 1.9 H Prothrombin Time 13.8 Prothrombin Time Ratio 1.1 INR International Normalized Ratio 1.06 Activated Partial Thromboplast Time 33.0 Phosphorus Level 6.1 H Iron Level 169 H Total Iron Binding Capacity 275 Percent Iron Saturation 61 H Lactate Dehydrogenase 473 Folate > 20.0 H Medications Medications Current Medications Allopurinol (Zyloprim) 100 mg DAILY PO ; Start 06/04/17 at 09:00 Clonazepam (Klonopin) 1 mg QHS PO Last administered on 06/03/17t 22:39; Admin Dose 1 MG; Start 06/03/17 at 21:00 Levetiracetam (Keppra) 1,000 mg QHS PO Last administered on 06/03/17 22:38; Admin Dose 1,000 MG; Start 06/03/17 at 21:00 Levetiracetam (Keppra) 750 mg PO ; Start 06/03/17 at 17:00 Multivit/Ca Carb/ B Cmplx/FA/Prenat (Ronda-Joo) 1 tab DAILY PO ; Start 06/04/17 at 09:00 Sertraline HCl (Zoloft) 50 mg QHS PO Last administered on 06/03/17 22:39; Admin Dose 50 MG; Start 06/03/17 at 21:00 Tamsulosin HCl (Flomax) 0.4 mg HS PO Last administered on 06/03/17 22:37; Admin Dose 0.4 MG; Start 06/03/17 at 21:00 Tramadol HCl (Ultram) 50 mg Q6H PRN PO PAIN Last administered on 06/03/17 18: 09; Admin Dose 50 MG; Start 06/03/17 at 17:00 Trazodone HCl (Desyrel) 150 mg QHS PO Last administered on 06/03/17 22:37; Admin Dose 150 MG; Start 06/03/17 at 21:00 Amlodipine Besylate (Norvasc) 5 mg DAILY PO ; Start 06/04/17 at 09:00 Pantoprazole (Protonix Tab) 40 mg 06,18 PO Last administered on 06/04/17 05:30 ; Admin Dose 40 MG; Start 06/03/17 at 18:00 Ondansetron HCl (Zofran Tab) 4 mg Q6H PRN PO NAUSEA AND/OR VOMITING; Start at 17:00 Acetaminophen (Tylenol Tab) 650 mg Q6H PRN PO PAIN LEVEL 1-3 OR FEVER Last administered on 06/03/17 22:40; Admin Dose 650 MG; Start 06/03/17 at 17:00 Docusate Sodium (Colace) 100 mg Q12H PRN PO CONSTIPATION; Start 06/03/17 at 17: 00 Epoetin Eris (Epogen (Esrd)) 10,000 units TuThSa@17 [place] ; Start 9/16/17 at 17:00 Cyanocobalamin (Vitamin B12) 500 mcg DAILY PO ; Start 06/04/17 at 09:00 Folic Acid (Folic Acid) 1 mg DAILY PO ; Start 06/04/17 at 09:00 DAXA PEOPLES MD Jun 04, 2017 09:52
--- NOTE | 2017-06-04 16:37 | PN ---
Date/Time of Note Date/Time of Note DATE: 06/04/17 TIME: 16:34 Assessment/Plan VTE Prophylaxis VTE Prophylaxis Intervention: SCD's Lines/Catheters IV C[facility] Type (from [facility] Saline Lock Urinary Cath still in place: No Assessment/Plan Chief Complaint/Hosp Course 1. Anemia likely secondary to end-stage renal disease Rule out GI bleed with FOBT Reticulocyte count and LDH are within normal limits Iron, B12 and folate also within normal limits Transfuse another unit of packed red blood cells today Started on Epo by nephrology 2. End stage renal disease Patient had permacath placement HD today Nephrology following manager title to arrange for outpatient dialysis, check hepatitis panel 3. Hypertension-stable Continue Norvasc 4. Seizure disorder Continue home Keppra 5. Depression Continue Zoloft 6. BPH Continue Flomax Prophylaxis: SCDs Problems: Subjective 24 Hr Interval Summary Constitutional: no complaints Exam/Review of Systems Vital Signs Vitals Vital Signs Date Time Temp Pulse Resp B/P Pulse Ox O2 Delivery O2 Flow Rate FiO2 06/04/17 16:19 78 06/04/17 14:35 14 06/04/17 08:04 98.3 139/73 95 06/03/17 20:30 Room Air Intake and Output 06/03/17 06/03/17 06/04/17 15:00 23:00 07:00 Intake Total 980 ml Output Total 500 ml Balance 480 ml Exam Constitutional: alert, oriented Respiratory: clear to auscultation Cardiovascular: regular rate and rhythm Gastrointestinal: soft, No distended Musculoskeletal: nl extremities to inspection Results Result Diagram: 06/04/17 0504 06/04/17 0504 Results 24 hrs Laboratory Tests Test 06/03/17 18:10 06/04/17 05:00 06/04/17 05:04 06/04/17 05:05 White Blood Count 7.5 # 8.2 Red Blood Count 2.26 #L 2.88 #L Hemoglobin 6.7 #*L 8.7 #L Hematocrit 21.3 #L 26.2 #L Mean Corpuscular Volume 94.2 91.0 Mean Corpuscular Hemoglobin 29.6 30.2 Mean Corpuscular Hemoglobin Concent 31.5 L 33.2 Red Cell Distribution Width 16.0 H 16.4 H Platelet Count 211 213 Mean Platelet Volume 10.5 H 10.8 H Neutrophils % 60.7 Segmented Neutrophils % (Manual) 50 Band Neutrophils % (Manual) 1 Lymphocytes % 27.4 Lymphocytes % (Manual) 39 Monocytes % 6.5 Monocytes % (Manual) 6 Eosinophils % 4.5 Eosinophils % (Manual) 5 Basophils % 0.4 Nucleated Red Blood Cells % 0.0 0.0 Neutrophils # 5.0 Neutrophils # (Manual) 3.8 Band Neutrophils # 0.0 Absolute Lymphocytes (Manual) 2.9 Lymphocytes # 2.2 Monocytes # 0.5 Absolute Monocytes (Manual) 0.4 Eosinophils # 0.4 Basophils # 0.0 Nucleated Red Blood Cells # 0.0 Pathologist Review (Hematology) Y Platelet Estimate NORMAL Hypochromasia 1+ Poikilocytosis 3+ Anisocytosis 2+ Microcytosis 2+ Macrocytosis 1+ Tear Drop Cells 1+ Ovalocytes 1+ Sodium Level 139 140 Potassium Level 5.6 H 5.5 H Chloride Level 112 H 113 H Carbon Dioxide Level 16 L 17 L Anion Gap 17 H 16 Blood Urea Nitrogen 71 H 71 H Creatinine 5.29 H 5.44 H Glucose Level 90 92 Calcium Level 9.0 8.9 Total Bilirubin 0.0 L Direct Bilirubin 0.00 Indirect Bilirubin 0.0 Aspartate Amino Transf (AST/SGOT) 13 L Alanine Aminotransferase (ALT/SGPT) 28 Alkaline Phosphatase 126 H Total Protein 6.6 Albumin 4.0 Globulin 2.60 Albumin/Globulin Ratio 1.53 Urine Color STRAW Urine Clarity CLEAR Urine pH 5.0 Urine Specific [place] 1.009 Urine Ketones NEGATIVE Urine Nitrite NEGATIVE Urine Bilirubin NEGATIVE Urine Urobilinogen NEGATIVE Urine Leukocyte Esterase NEGATIVE Urine Microscopic RBC 0 Urine Microscopic WBC 0 Urine Hemoglobin NEGATIVE Urine Glucose 1+ H Urine Total Protein 2+ H Absolute Reticulocyte Count 0.053 Percent Reticulocyte Count 1.9 H Prothrombin Time 13.8 Prothrombin Time Ratio 1.1 INR International Normalized Ratio 1.06 Activated Partial Thromboplast Time 33.0 Phosphorus Level 6.1 H Iron Level 169 H Total Iron Binding Capacity 275 Percent Iron Saturation 61 H Lactate Dehydrogenase 473 Vitamin B12 Level 677 Folate > 20.0 H Ferritin 146.0 Test 06/04/17 12:01 Lab Scanned Report REFERENCE LAB Medications Medications Current Medications Allopurinol (Zyloprim) 100 mg DAILY PO Last administered on 06/04/17t 10:55; Admin Dose 100 MG; Start 06/04/17 at 09:00 Clonazepam (Klonopin) 1 mg QHS PO Last administered on 06/03/17 22:39; Admin Dose 1 MG; Start 06/03/17 at 21:00 Levetiracetam (Keppra) 1,000 mg QHS PO Last administered on 06/03/17 22:38; Admin Dose 1,000 MG; Start 06/03/17 at 21:00 Multivit/Ca Carb/ B Cmplx/FA/Prenat (Ronda-Joo) 1 tab DAILY PO ; Start 06/04/17 at 09:00 Sertraline HCl (Zoloft) 50 mg QHS PO Last administered on 06/03/17 22:39; Admin Dose 50 MG; Start 06/03/17 at 21:00 Tamsulosin HCl (Flomax) 0.4 mg HS PO Last administered on 06/03/17 22:37; Admin Dose 0.4 MG; Start 06/03/17 at 21:00 Tramadol HCl (Ultram) 50 mg Q6H PRN PO PAIN Last administered on 06/03/17 18: 09; Admin Dose 50 MG; Start 06/03/17 at 17:00 Trazodone HCl (Desyrel) 150 mg QHS PO Last administered on 06/03/17 22:37; Admin Dose 150 MG; Start 06/03/17 at 21:00 Amlodipine Besylate (Norvasc) 5 mg DAILY PO ; Start 06/04/17 at 09:00 Pantoprazole (Protonix Tab) 40 mg 06,18 PO Last administered on 06/04/17 05:30 ; Admin Dose 40 MG; Start 06/03/17 at 18:00 Ondansetron HCl (Zofran Tab) 4 mg Q6H PRN PO NAUSEA AND/OR VOMITING; Start at 17:00 Acetaminophen (Tylenol Tab) 650 mg Q6H PRN PO PAIN LEVEL 1-3 OR FEVER Last administered on 06/03/17 22:40; Admin Dose 650 MG; Start 06/03/17 at 17:00 Docusate Sodium (Colace) 100 mg Q12H PRN PO CONSTIPATION; Start 06/03/17 at 17: 00 Epoetin Eris (Epogen (Esrd)) 10,000 units TuThSa@17 SC ; Start 9/16/17 at 17:00 Cyanocobalamin (Vitamin B12) 500 mcg DAILY PO ; Start 06/04/17 at 09:00 Folic Acid (Folic Acid) 1 mg DAILY PO Last administered on 06/04/17 10:54; Admin Dose 1 MG; Start 06/04/17 at 09:00 Levetiracetam (Keppra) 750 mg PO Last administered on 06/04/17 11:02; Admin Dose 750 MG; Start 06/04/17 at 11:00 JULIAN BARRETO Jun 04, 2017 16:37
[2017-06-04] MEDS: EPOETIN 10000 UNITS/1 ML INJ (ESRD) SC SCH (18:41)
[2017-06-04] MEDS: LEVETIRACETAM 500 MG TAB PO SCH (21:15)
[2017-06-04] MEDS: traZODone 50 MG TAB PO SCH (21:15)
[2017-06-04] MEDS: clonAZEPAM 0.5 MG TAB PO SCH (21:16)
[2017-06-04] MEDS: TAMSULOSIN (SR) 0.4 MG CAP PO SCH (21:16)
[2017-06-04] MEDS: SERTRALINE 50 MG TAB PO SCH (21:17)
[2017-06-05 02:18] VITALS: BP 143/77; RESP 18
[2017-06-05] MEDS: PANTOPRAZOLE (EC) 40 MG TAB PO SCH ×2 (05:31→17:23)
[2017-06-05 05:32] LABS: BASOPHILS % 0.4 % (0.0-2.0); EOSINOPHILS # 0.3 10^3/ul (0.0-0.5); EOSINOPHILS % 3.4 % (0.0-7.0); HEMATOCRIT 28.5 % (42.0-52.0); HEMOGLOBIN 9.9 g/dl (14.0-18.0); LYMPHOCYTES % 24.6 % (15.0-51.0); MEAN CORPUSCULAR HEMOGLOBIN 30.6 pg (29.0-33.0); MEAN CORPUSCULAR HGB CONC 34.7 g/dl (32.0-37.0); MEAN PLATELET VOLUME 10.8 fl (7.4-10.4); MONOCYTE # 0.5 10^3/ul (0.3-0.9); MONOCYTES % 6.2 % (0.0-11.0); NEUTROPHIL # 5.4 10^3/ul (1.6-7.5); PLATELET COUNT 211 10^3/UL (140-415); RED BLOOD COUNT 3.24 10^6/ul (4.70-6.10); WHITE BLOOD COUNT 8.2 10^3/ul (4.8-10.8)
[2017-06-05 05:33] LABS: HAAIG REFLEX REFLEX FILED
[2017-06-05 06:06] LABS: CALCIUM 9.1 mg/dl (8.4-10.2); CREATININE 3.71 mg/dl (0.61-1.24); POTASSIUM 4.8 mmol/L (3.5-5.1)
[2017-06-05 07:59] VITALS: BP 138/71; RESP 18
[2017-06-05 08:02] LABS: HEPATITIS B CORE ANTIBODY REACTIVE (NEGATIVE)
[2017-06-05] MEDS: MULTIVIT/CA CARB/B CMPLX/FA TAB PO SCH (08:49)
[2017-06-05] MEDS: ALLOPURINOL 100 MG TAB PO SCH (08:49)
[2017-06-05] MEDS: CYANOCOBALAMIN 500 MCG TAB PO SCH (08:49)
[2017-06-05] MEDS: AMLODIPINE 5 MG TAB PO SCH (08:49)
[2017-06-05] MEDS: FOLIC ACID 1 MG TAB PO SCH (08:49)
[2017-06-05] MEDS: LEVETIRACETAM 750 MG TAB PO SCH ×2 (09:45→17:23)
--- NOTE | 2017-06-05 10:00 | CONS ---
Date/Time of Note Date/Time of Note DATE: 06/05/17 TIME: 09:58 Assessment/Plan Assessment/Plan Problems: (1) HTN (hypertension) Comment: controlled (2) ESRD (end stage renal disease) on dialysis Comment: for HD in AM... needs outpt HD arrangements.. [facility] [employer]pper notified (3) Anemia Status: Acute Comment: better post Tx Qualifiers: Anemia type: unspecified type Qualified Code: D64.9 - Anemia, unspecified type Consultation Date/Type/Reason Admit Date/Time Jun 03, 2017 at 17:04 Type of Consultation: renal 24 HR Interval Summary Free Text/Dictation tolerated initial HD without incident Exam/Review of Systems Vital Signs Vitals Vital Signs Date Time Temp Pulse Resp B/P Pulse Ox O2 Delivery O2 Flow Rate FiO2 06/05/17 07:59 97.9 72 18 138/71 92 06/03/17 20:30 Room Air Intake and Output 06/04/17 06/04/17 06/05/17 15:00 23:00 07:00 Intake Total 1700 ml 480 ml Output Total 1900 ml Balance -200 ml 480 ml Exam Constitutional: alert, oriented Psych: no complaints Respiratory: clear to auscultation Cardiovascular: regular rate and rhythm Gastrointestinal: soft Results Result Diagram: 06/05/17 0456 06/05/17 0456 Results 24 hrs Laboratory Tests Test 06/04/17 12:01 06/05/17 04:56 06/05/17 05:31 Lab Scanned Report REFERENCE LAB BLOOD TRANSFUSION White Blood Count 8.2 Red Blood Count 3.24 L Hemoglobin 9.9 L Hematocrit 28.5 L Mean Corpuscular Volume 88.0 Mean Corpuscular Hemoglobin 30.6 Mean Corpuscular Hemoglobin Concent 34.7 Red Cell Distribution Width 16.0 H Platelet Count 211 Mean Platelet Volume 10.8 H Neutrophils % 65.0 Lymphocytes % 24.6 Monocytes % 6.2 Eosinophils % 3.4 Basophils % 0.4 Nucleated Red Blood Cells % 0.0 Neutrophils # 5.4 Lymphocytes # 2.0 Monocytes # 0.5 Eosinophils # 0.3 Basophils # 0.0 Nucleated Red Blood Cells # 0.0 Sodium Level 142 Potassium Level 4.8 Chloride Level 109 Carbon Dioxide Level 24 Anion Gap 14 Blood Urea Nitrogen 42 #H Creatinine 3.71 #H Glucose Level 104 Calcium Level 9.1 Hepatitis B Surface Antigen NEGATIVE Hepatitis B Core Total Antibody REACTIVE H Hepatitis C Antibody NEGATIVE Medications Medications Current Medications Allopurinol (Zyloprim) 100 mg DAILY PO Last administered on 06/05/17 08:49; Admin Dose 100 MG; Start 06/04/17 at 09:00 Clonazepam (Klonopin) 1 mg QHS PO Last administered on 06/04/17 21:16; Admin Dose 1 MG; Start 06/03/17 at 21:00 Levetiracetam (Keppra) 1,000 mg QHS PO Last administered on 06/04/17 21:15; Admin Dose 1,000 MG; Start 06/03/17 at 21:00 Multivit/Ca Carb/ B Cmplx/FA/Prenat (Ronda-Joo) 1 tab DAILY PO Last administered on 06/05/17 08:49; Admin Dose 1 TAB; Start 06/04/17 at 09:00 Sertraline HCl (Zoloft) 50 mg QHS PO Last administered on 06/04/17 21:17; Admin Dose 50 MG; Start 06/03/17 at 21:00 Tamsulosin HCl (Flomax) 0.4 mg HS PO Last administered on 06/04/17 21:16; Admin Dose 0.4 MG; Start 06/03/17 at 21:00 Tramadol HCl (Ultram) 50 mg Q6H PRN PO PAIN Last administered on 06/03/17 18: 09; Admin Dose 50 MG; Start 06/03/17 at 17:00 Trazodone HCl (Desyrel) 150 mg QHS PO Last administered on 06/04/17 21:15; Admin Dose 150 MG; Start 06/03/17 at 21:00 Amlodipine Besylate (Norvasc) 5 mg DAILY PO Last administered on 06/05/17 08: 49; Admin Dose 5 MG; Start 06/04/17 at 09:00 Pantoprazole (Protonix Tab) 40 mg 06,18 PO Last administered on 06/05/17 05:31 ; Admin Dose 40 MG; Start 06/03/17 at 18:00 Ondansetron HCl (Zofran Tab) 4 mg Q6H PRN PO NAUSEA AND/OR VOMITING; Start at 17:00 Acetaminophen (Tylenol Tab) 650 mg Q6H PRN PO PAIN LEVEL 1-3 OR FEVER Last administered on 06/03/17 22:40; Admin Dose 650 MG; Start 06/03/17 at 17:00 Docusate Sodium (Colace) 100 mg Q12H PRN PO CONSTIPATION; Start 06/03/17 at 17: 00 Epoetin Eris (Epogen (Esrd)) 10,000 units TuThSa@17 SC Last administered on 18:41; Admin Dose 10,000 UNITS; Start 06/04/17 at 17:00 Cyanocobalamin (Vitamin B12) 500 mcg DAILY PO Last administered on 06/05/17 08 :49; Admin Dose 500 MCG; Start 06/04/17 at 09:00 Folic Acid (Folic Acid) 1 mg DAILY PO Last administered on 06/05/17 08:49; Admin Dose 1 MG; Start 06/04/17 at 09:00 Levetiracetam (Keppra) 750 mg PO Last administered on 06/05/17 09:45; Admin Dose 750 MG; Start 06/04/17 at 11:00 DAXA PEOPLES MD Jun 05, 2017 09:59
[2017-06-05 14:56] VITALS: BP 136/74; RESP 20
--- NOTE | 2017-06-05 15:47 | RADRPT ---
Vent Rate: 84 bpm RR Interval: 0 msec [place] Interval: 148 msec QRS Duration: 84 msec QT Interval: 372 msec QTC Interval: 439 msec P-R-T [place]: 56 - 66 - 67 degrees Normal sinus rhythm Normal ECG Electronically Signed By: Lv Fritz [id number]
[2017-06-05] MEDS: traMADol 50 MG TAB PO PRN (18:36)
--- NOTE | 2017-06-05 19:46 | PN ---
Date/Time of Note Date/Time of Note DATE: 06/05/17 TIME: 19:44 Assessment/Plan VTE Prophylaxis VTE Prophylaxis Intervention: SCD's Lines/Catheters IV C[facility]ter Type [facility]from [facility] Saline Lock Urinary Cath still in place: No Assessment/Plan Chief Complaint/Hosp Course 1. Anemia likely secondary to end-stage renal disease Rule out GI bleed with FOBT Reticulocyte count and LDH are within normal limits Iron, B12 and folate also within normal limits Transfuse another unit of packed red blood cells today Started on Epo by nephrology 2. End stage renal disease Patient had permacath placement HD today Nephrology following tool crib manager to arrange for outpatient dialysis, hepatitis panel is negative 3. Hypertension-stable Continue Norvasc 4. Seizure disorder Continue home Keppra 5. Depression Continue Zoloft 6. BPH Continue Flomax Prophylaxis: SCDs Problems: Subjective 24 Hr Interval Summary Constitutional: no complaints Exam/Review of Systems Vital Signs Vitals Vital Signs Date Time Temp Pulse Resp B/P Pulse Ox O2 Delivery O2 Flow Rate FiO2 06/05/17 14:56 98.3 80 20 136/74 94 06/03/17 20:30 Room Air Intake and Output 06/04/17 06/04/17 06/05/17 15:00 23:00 07:00 Intake Total 1700 ml 480 ml Output Total 1900 ml Balance -200 ml 480 ml Exam Constitutional: alert, oriented Respiratory: clear to auscultation Cardiovascular: regular rate and rhythm Gastrointestinal: soft, No distended Musculoskeletal: nl extremities to inspection Results Result Diagram: 06/05/17 0456 06/05/17 0456 Results 24 hrs Laboratory Tests Test 06/05/17 04:56 06/05/17 05:31 White Blood Count 8.2 Red Blood Count 3.24 L Hemoglobin 9.9 L Hematocrit 28.5 L Mean Corpuscular Volume 88.0 Mean Corpuscular Hemoglobin 30.6 Mean Corpuscular Hemoglobin Concent 34.7 Red Cell Distribution Width 16.0 H Platelet Count 211 Mean Platelet Volume 10.8 H Neutrophils % 65.0 Lymphocytes % 24.6 Monocytes % 6.2 Eosinophils % 3.4 Basophils % 0.4 Nucleated Red Blood Cells % 0.0 Neutrophils # 5.4 Lymphocytes # 2.0 Monocytes # 0.5 Eosinophils # 0.3 Basophils # 0.0 Nucleated Red Blood Cells # 0.0 Sodium Level 142 Potassium Level 4.8 Chloride Level 109 Carbon Dioxide Level 24 Anion Gap 14 Blood Urea Nitrogen 42 #H Creatinine 3.71 #H Glucose Level 104 Calcium Level 9.1 Hepatitis B Surface Antigen NEGATIVE Hepatitis B Core Total Antibody REACTIVE H Hepatitis C Antibody NEGATIVE Lab Scanned Report BLOOD TRANSFUSION Medications Medications Current Medications Allopurinol (Zyloprim) 100 mg DAILY PO Last administered on 06/05/17 08:49; Admin Dose 100 MG; Start 06/04/17 at 09:00 Clonazepam (Klonopin) 1 mg QHS PO Last administered on 06/04/17 21:16; Admin Dose 1 MG; Start 06/03/17 at 21:00 Levetiracetam (Keppra) 1,000 mg QHS PO Last administered on 06/04/17 21:15; Admin Dose 1,000 MG; Start 06/03/17 at 21:00 Multivit/Ca Carb/ B Cmplx/FA/Prenat (Ronda-Joo) 1 tab DAILY PO Last administered on 06/05/17 08:49; Admin Dose 1 TAB; Start 06/04/17 at 09:00 Sertraline HCl (Zoloft) 50 mg QHS PO Last administered on 06/04/17 21:17; Admin Dose 50 MG; Start 06/03/17 at 21:00 Tamsulosin HCl (Flomax) 0.4 mg HS PO Last administered on 06/04/17 21:16; Admin Dose 0.4 MG; Start 06/03/17 at 21:00 Tramadol HCl (Ultram) 50 mg Q6H PRN PO PAIN Last administered on 06/05/17 18: 36; Admin Dose 50 MG; Start 06/03/17 at 17:00 Trazodone HCl (Desyrel) 150 mg QHS PO Last administered on 06/04/17 21:15; Admin Dose 150 MG; Start 06/03/17 at 21:00 Amlodipine Besylate (Norvasc) 5 mg DAILY PO Last administered on 06/05/17 08: 49; Admin Dose 5 MG; Start 06/04/17 at 09:00 Pantoprazole (Protonix Tab) 40 mg 18 PO Last administered on 06/05/17 17:23 ; Admin Dose 40 MG; Start 06/03/17 at 18:00 Ondansetron HCl (Zofran Tab) 4 mg Q6H PRN PO NAUSEA AND/OR VOMITING; Start at 17:00 Acetaminophen (Tylenol Tab) 650 mg Q6H PRN PO PAIN LEVEL 1-3 OR FEVER Last administered on 06/03/17 22:40; Admin Dose 650 MG; Start 06/03/17 at 17:00 Docusate Sodium (Colace) 100 mg Q12H PRN PO CONSTIPATION; Start 06/03/17 at 17: 00 Epoetin Eris (Epogen (Esrd)) 10,000 units TuThSa@17 SC Last administered on 18:41; Admin Dose 10,000 UNITS; Start 06/04/17 at 17:00 Cyanocobalamin (Vitamin B12) 500 mcg DAILY PO Last administered on 06/05/17 08 :49; Admin Dose 500 MCG; Start 06/04/17 at 09:00 Folic Acid (Folic Acid) 1 mg DAILY PO Last administered on 06/05/17 08:49; Admin Dose 1 MG; Start 06/04/17 at 09:00 Levetiracetam (Keppra) 750 mg PO Last administered on 06/05/17 17:23; Admin Dose 750 MG; Start 06/04/17 at 11:00 JULIAN BARRETO Jun 05, 2017 19:46
[2017-06-05 20:26] VITALS: BP 153/78; RESP 18
[2017-06-05] MEDS: SERTRALINE 50 MG TAB PO SCH (21:20)
[2017-06-05] MEDS: LEVETIRACETAM 500 MG TAB PO SCH (21:20)
[2017-06-05] MEDS: clonAZEPAM 0.5 MG TAB PO SCH (21:20)
[2017-06-05] MEDS: traZODone 50 MG TAB PO SCH (21:20)
[2017-06-05] MEDS: TAMSULOSIN (SR) 0.4 MG CAP PO SCH (21:20)
[2017-06-05 21:30] VITALS: BP 130/64
[2017-06-06] VITALS (11 sets, daily range): BP systolic 128–166; BP diastolic 72–86; PULSE 67–78; RESP 18–21
[2017-06-06] MEDS: ACETAMINOPHEN 325 MG TAB PO PRN (02:23)
[2017-06-06] MEDS: PANTOPRAZOLE (EC) 40 MG TAB PO SCH ×2 (05:19→17:38)
[2017-06-06 05:58] LABS: HAAIG REFLEX REFLEX FILED
[2017-06-06 06:05] LABS: BASOPHIL # 0.1 10^3/ul (0.0-0.1); BASOPHILS % 0.6 % (0.0-2.0); EOSINOPHILS # 0.3 10^3/ul (0.0-0.5); EOSINOPHILS % 3.7 % (0.0-7.0); HEMATOCRIT 28.7 % (42.0-52.0); HEMOGLOBIN 9.7 g/dl (14.0-18.0); LYMPHOCYTES # 2.5 10^3/ul (0.8-2.9); LYMPHOCYTES % 31.9 % (15.0-51.0); MEAN CORPUSCULAR HEMOGLOBIN 30.4 pg (29.0-33.0); MEAN CORPUSCULAR HGB CONC 33.8 g/dl (32.0-37.0); MEAN PLATELET VOLUME 10.8 fl (7.4-10.4); MONOCYTE # 0.7 10^3/ul (0.3-0.9); MONOCYTES % 8.4 % (0.0-11.0); NEUTROPHIL # 4.3 10^3/ul (1.6-7.5); NEUTROPHILS % 54.9 % (39.0-77.0); PLATELET COUNT 210 10^3/UL (140-415); RED BLOOD COUNT 3.19 10^6/ul (4.70-6.10); RED CELL DISTRIBUTION WIDTH 15.9 % (11.5-14.5); WHITE BLOOD COUNT 7.9 10^3/ul (4.8-10.8)
[2017-06-06 06:45] LABS: CALCIUM 9.2 mg/dl (8.4-10.2); CREATININE 4.63 mg/dl (0.61-1.24); POTASSIUM 4.5 mmol/L (3.5-5.1)
[2017-06-06 07:19] LABS: HEPATITIS B CORE ANTIBODY REACTIVE (NEGATIVE)
[2017-06-06] MEDS: AMLODIPINE 5 MG TAB PO SCH (08:07)
--- NOTE | 2017-06-06 08:37 | CONS ---
DATE OF ADMISSION: 06/03/2017 DATE OF CONSULTATION: Dear Dr. Gerardo Vick, thank you very much for allowing me to evaluate the above patient, a 66-year-old male with renal insufficiency and worsening anemia. HISTORICAL EVENTS: I had the opportunity to evaluate the above patient on June 01. At that time, he indicated his appetite was reasonable. He had no nausea, vomiting, and had no symptoms of gastrointestinal bleeding. He denied cough, wheezing, shortness of breath. Had increasing modest fatigue. He did note some urinary frequency without dysuria. His physical exam was unrevealing for volume overload or alison CHF. Laboratory studies obtained at that visit revealed his hematocrit to be 23.4, his white blood count and platelet count were normal. Urinalysis revealed 2+ protein. Iron sat was 30 percent. Phosphorus was 4.5. BUN was 70, creatinine 5.47, potassium was 5.6, CO2 was 17. I recommended that he be promptly evaluated with respect to his anemia, as I believe he would benefit from transfusion of packed cells and discerning the cause of his recurrent anemia. He denied alison exertional dyspnea, albeit he does not exert himself significantly and had no chest pain. MEDICATION: Presently include: 1. Florinef 0.1 per day. 2. Vitamin D3,2000 units per day. 3. B12, 1000 mcg per day. 4. Folic acid 1 mg per day. 5. Amlodipine 5 mg per day. 6. Protonix 40 mg b.i.d. 7. Keppra 750 mg b.i.d. 8. Allopurinol 100 mg per day. 9. Klonopin 100 mg at night. 10. Zoloft 50 mg at night. 11. Sodium bicarbonate 650 mg b.i.d., presently not taking. 12. Trazodone 150 mg per day. 13. Tramadol 50 mg q.6h p.r.n. PAST MEDICAL HISTORY: Includes: 1. 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 2. Hypertension. 3. History of depression. 4. History of BPH. 5. Prior severe alcoholism. 6. History of seizure disorder. 7. Fatty liver noted on CT scan. 8. Peripheral neuropathy. 9. Admitted at [facility] in February of this year with severe anemia and gastritis was noted on endoscopy. PPI was increased from q.day to b.i.d. and colonoscopy was negative. 10. Left upper extremity fistula was placed in April 2017. SOCIAL HISTORY: He is to his life partner. FAMILY HISTORY: Positive for mental illness. ALLERGIES: NONE. PHYSICAL EXAMINATION: GENERAL: Revealed a chronically-ill male, in no acute distress. VITAL SIGNS: BP 112/77, respirations were 18. He was afebrile. HEENT: Eyes, extraocular muscles were full. Nose, mouth and throat were normal. NECK: Supple. There was no jugular venous distention. Thyroid enlargement, adenopathy. Carotids 2+. No bruits. LUNGS: Clear. HEART: Rhythm regular, 1/6 systolic murmur. No 3rd or 4th sound. ABDOMEN: Nontender. Liver and spleen were not palpable. No mass or tenderness were noted. EXTREMITIES: No edema. Calves nontender. There was a fistula in the left upper extremity. IMPRESSION: 1. Progressive renal insufficiency with need now to begin dialytic intervention. His vascular access is not yet mature and placement of a temporary access will be needed. 2. Again, severe anemia. We will need to discern whether there is recurrent gastrointestinal bleeding and he would benefit from 2 units of packed cells while undergoing evaluation. PLAN: Admit. Placement of a PermCath begin dialysis transfusion. Stool for OB. GI consult followup. Dictated By: Anthony Anthony MD /[email or web address]/kirk /Document#: [id number]
--- NOTE | 2017-06-06 08:42 | CONS ---
Date/Time of Note Date/Time of Note DATE: 06/06/17 TIME: 08:38 Assessment/Plan Assessment/Plan Additional Assessment/Plan 1. CKD progressive sec tuber sclerosis and sec focal sclerosis with now need for chronic HD. Await case management eval for OP dialysis scheduling and location. Next HD Wed. 2. Severe anemia on admit, would ask GI to follow up (Dr. Barreto) despite stool ob that was negative, gastritis noted Endo 03/05 and colon unremarkable. 3. Seizure disorder, quiescent. Consultation Date/Type/Reason Admit Date/Time Jun 03, 2017 at 17:04 Initial Consult Date Type of Consultation: renal Detailed Summary Respiratory: No shortness of breath Cardiovascular: No chest pain Gastrointestinal: no complaints Genitourinary: no complaints Neurologic: no complaints Exam/Review of Systems Vital Signs Vitals Vital Signs Date Time Temp Pulse Resp B/P Pulse Ox O2 Delivery O2 Flow Rate FiO2 06/06/17 07:20 75 06/06/17 05:20 18 06/06/17 02:51 97.6 140/78 91 06/03/17 20:30 Room Air Intake and Output 06/05/17 06/05/17 06/06/17 15:00 23:00 07:00 Intake Total 900 ml 300 ml Output Total 750 ml Balance 150 ml 300 ml Exam Neck: No jvd Respiratory: clear to auscultation Cardiovascular: regular rate and rhythm Gastrointestinal: soft Extremities: No edema Results Result Diagram: 06/06/17 0525 06/06/17 0525 Results 24 hrs Laboratory Tests Test 06/06/17 05:25 White Blood Count 7.9 Red Blood Count 3.19 L Hemoglobin 9.7 L Hematocrit 28.7 L Mean Corpuscular Volume 90.0 Mean Corpuscular Hemoglobin 30.4 Mean Corpuscular Hemoglobin Concent 33.8 Red Cell Distribution Width 15.9 H Platelet Count 210 Mean Platelet Volume 10.8 H Neutrophils % 54.9 Lymphocytes % 31.9 Monocytes % 8.4 Eosinophils % 3.7 Basophils % 0.6 Nucleated Red Blood Cells % 0.0 Neutrophils # 4.3 Lymphocytes # 2.5 Monocytes # 0.7 Eosinophils # 0.3 Basophils # 0.1 Nucleated Red Blood Cells # 0.0 Sodium Level 142 Potassium Level 4.5 Chloride Level 110 Carbon Dioxide Level 22 Anion Gap 15 Blood Urea Nitrogen 60 H Creatinine 4.63 H Glucose Level 117 Calcium Level 9.2 Magnesium Level 1.9 Hepatitis B Surface Antigen NEGATIVE Hepatitis B Core Total Antibody REACTIVE H Hepatitis C Antibody NEGATIVE Medications Medications Current Medications Allopurinol (Zyloprim) 100 mg DAILY PO Last administered on 06/05/17 08:49; Admin Dose 100 MG; Start 06/04/17 at 09:00 Clonazepam (Klonopin) 1 mg QHS PO Last administered on 06/05/17 21:20; Admin Dose 1 MG; Start 06/03/17 at 21:00 Levetiracetam (Keppra) 1,000 mg QHS PO Last administered on 06/05/17 21:20; Admin Dose 1,000 MG; Start 06/03/17 at 21:00 Multivit/Ca Carb/ B Cmplx/FA/Prenat (Ronda-Joo) 1 tab DAILY PO Last administered on 06/05/17 08:49; Admin Dose 1 TAB; Start 06/04/17 at 09:00 Sertraline HCl (Zoloft) 50 mg QHS PO Last administered on 06/05/17 21:20; Admin Dose 50 MG; Start 06/03/17 at 21:00 Tamsulosin HCl (Flomax) 0.4 mg HS PO Last administered on 06/05/17 21:20; Admin Dose 0.4 MG; Start 06/03/17 at 21:00 Tramadol HCl (Ultram) 50 mg Q6H PRN PO PAIN Last administered on 06/05/17 18: 36; Admin Dose 50 MG; Start 06/03/17 at 17:00 Trazodone HCl (Desyrel) 150 mg QHS PO Last administered on 06/05/17 21:20; Admin Dose 150 MG; Start 06/03/17 at 21:00 Amlodipine Besylate (Norvasc) 5 mg DAILY PO Last administered on 06/05/17 08: 49; Admin Dose 5 MG; Start 06/04/17 at 09:00 Pantoprazole (Protonix Tab) 40 mg ,18 PO Last administered on 06/06/17 05:19 ; Admin Dose 40 MG; Start 06/03/17 at 18:00 Ondansetron HCl (Zofran Tab) 4 mg Q6H PRN PO NAUSEA AND/OR VOMITING; Start at 17:00 Acetaminophen (Tylenol Tab) 650 mg Q6H PRN PO PAIN LEVEL 1-3 OR FEVER Last administered on 06/06/17 02:23; Admin Dose 650 MG; Start 06/03/17 at 17:00 Docusate Sodium (Colace) 100 mg Q12H PRN PO CONSTIPATION; Start 06/03/17 at 17: 00 Epoetin Eris (Epogen (Esrd)) 10,000 units TuThSa@17 SC Last administered on 18:41; Admin Dose 10,000 UNITS; Start 06/04/17 at 17:00 Cyanocobalamin (Vitamin B12) 500 mcg DAILY PO Last administered on 06/05/17 08 :49; Admin Dose 500 MCG; Start 06/04/17 at 09:00 Folic Acid (Folic Acid) 1 mg DAILY PO Last administered on 06/05/17 08:49; Admin Dose 1 MG; Start 06/04/17 at 09:00 Levetiracetam (Keppra) 750 mg PO Last administered on 06/05/17 17:23; Admin Dose 750 MG; Start 06/04/17 at 11:00 FRED CARMONA MD Jun 06, 2017 08:41
[2017-06-06] MEDS: MULTIVIT/CA CARB/B CMPLX/FA TAB PO SCH (09:51)
[2017-06-06] MEDS: FOLIC ACID 1 MG TAB PO SCH (09:51)
[2017-06-06] MEDS: ALLOPURINOL 100 MG TAB PO SCH (09:52)
[2017-06-06] MEDS: CYANOCOBALAMIN 500 MCG TAB PO SCH (09:52)
--- NOTE | 2017-06-06 10:20 | PN ---
Date/Time of Note Date/Time of Note DATE: 06/06/17 TIME: 10:04 Assessment/Plan VTE Prophylaxis VTE Prophylaxis Intervention: ambulation, SCD's Lines/Catheters IV Catheter Type (from Nrsg): Perm Cath for HD Urinary Cath still in place: No Assessment/Plan Assessment/Plan 66 yo male with 1. Anemia likely secondary to end-stage renal disease, FOBT negative, patient wi th hx of gastritis but no signs of acute GIB therefore can f/u with outpatient GI as needed Reticulocyte count and LDH are within normal limits Iron, B12 and folate also within normal limits S/p 3 units of pRBC and Hb stable, also started on Epo per Nephrology. 2. End stage renal disease, now on HD, s/p permacath placement Per Nephro ok to d/c home once outpatient HD arranged by CM, check hepatitis panel if not done yet Nephrology, Dr Anthony, following 3. Hypertension: stable on Norvasc 4. Seizure disorder: Continue home Keppra 5. Depression: Continue Zoloft 6. BPH: Continue Flomax 7. Gastritis, continue PPI bid Prophylaxis: SCDs for DVT ppx, PPI already on for Gastritis Disposition: D/c plan once outpatient HD arranged, PT eval Subjective 24 Hr Interval Summary Free Text/Dictation S/p Perm Cath placement and initiation of HD over the weekend Chronic Anemia and s/p pRBC and started on Epo D/c planning in progress once outpatient HD clarified along with HD schedule Exam/Review of Systems Vital Signs Vitals Vital Signs Date Time Temp Pulse Resp B/P Pulse Ox O2 Delivery O2 Flow Rate FiO2 06/06/17 08:20 78 06/06/17 08:20 16 06/06/17 08:00 97.9 152/86 97 06/03/17 20:30 Room Air Intake and Output 06/05/17 06/05/17 06/06/17 15:00 23:00 07:00 Intake Total 900 ml 300 ml Output Total 750 ml Balance 150 ml 300 ml Exam Constitutional: alert, oriented, well developed Respiratory: clear to auscultation, normal air movement Cardiovascular: nl pulses, regular rate and rhythm Gastrointestinal: non-tender, soft Musculoskeletal: nl extremities to inspection Extremities: normal pulses, other (no edema, clubbing or cyanosis ) Neurological: MANUFACTURING TECHNOLOGIST II-XII intact, nl mental status, nl speech, nl strength Results Result Diagram: 06/06/17 0525 06/06/17 0525 Results 24 hrs Laboratory Tests Test 06/06/17 05:25 White Blood Count 7.9 Red Blood Count 3.19 L Hemoglobin 9.7 L Hematocrit 28.7 L Mean Corpuscular Volume 90.0 Mean Corpuscular Hemoglobin 30.4 Mean Corpuscular Hemoglobin Concent 33.8 Red Cell Distribution Width 15.9 H Platelet Count 210 Mean Platelet Volume 10.8 H Neutrophils % 54.9 Lymphocytes % 31.9 Monocytes % 8.4 Eosinophils % 3.7 Basophils % 0.6 Nucleated Red Blood Cells % 0.0 Neutrophils # 4.3 Lymphocytes # 2.5 Monocytes # 0.7 Eosinophils # 0.3 Basophils # 0.1 Nucleated Red Blood Cells # 0.0 Sodium Level 142 Potassium Level 4.5 Chloride Level 110 Carbon Dioxide Level 22 Anion Gap 15 Blood Urea Nitrogen 60 H Creatinine 4.63 H Glucose Level 117 Calcium Level 9.2 Magnesium Level 1.9 Hepatitis B Surface Antigen NEGATIVE Hepatitis B Core Total Antibody REACTIVE H Hepatitis C Antibody NEGATIVE Medications Medications Current Medications Allopurinol (Zyloprim) 100 mg DAILY PO Last administered on 06/06/17 09:52; Admin Dose 100 MG; Start 06/04/17 at 09:00 Clonazepam (Klonopin) 1 mg QHS PO Last administered on 06/05/17 21:20; Admin Dose 1 MG; Start 06/03/17 at 21:00 Levetiracetam (Keppra) 1,000 mg QHS PO Last administered on 06/05/17 21:20; Admin Dose 1,000 MG; Start 06/03/17 at 21:00 Multivit/Ca Carb/ B Cmplx/FA/Prenat (Ronda-Joo) 1 tab DAILY PO Last administered on 06/06/17 09:51; Admin Dose 1 TAB; Start 06/04/17 at 09:00 Sertraline HCl (Zoloft) 50 mg QHS PO Last administered on 06/05/17 21:20; Admin Dose 50 MG; Start 06/03/17 at 21:00 Tamsulosin HCl (Flomax) 0.4 mg HS PO Last administered on 06/05/17 21:20; Admin Dose 0.4 MG; Start 06/03/17 at 21:00 Tramadol HCl (Ultram) 50 mg Q6H PRN PO PAIN Last administered on 06/05/17 18: 36; Admin Dose 50 MG; Start 06/03/17 at 17:00 Trazodone HCl (Desyrel) 150 mg QHS PO Last administered on 06/05/17 21:20; Admin Dose 150 MG; Start 06/03/17 at 21:00 Amlodipine Besylate (Norvasc) 5 mg DAILY PO Last administered on 06/05/17 08: 49; Admin Dose 5 MG; Start 06/04/17 at 09:00 Pantoprazole (Protonix Tab) 40 mg PO Last administered on 06/06/17 05:19 ; Admin Dose 40 MG; Start 06/03/17 at 18:00 Ondansetron HCl (Zofran Tab) 4 mg Q6H PRN PO NAUSEA AND/OR VOMITING; Start at 17:00 Acetaminophen (Tylenol Tab) 650 mg Q6H PRN PO PAIN LEVEL 1-3 OR FEVER Last administered on 06/06/17 02:23; Admin Dose 650 MG; Start 06/03/17 at 17:00 Docusate Sodium (Colace) 100 mg Q12H PRN PO CONSTIPATION; Start 06/03/17 at 17: 00 Epoetin Eris (Epogen (Esrd)) 10,000 units TuThSa@17 SC Last administered on 18:41; Admin Dose 10,000 UNITS; Start 06/04/17 at 17:00 Cyanocobalamin (Vitamin B12) 500 mcg DAILY PO Last administered on 06/06/17 09 :52; Admin Dose 500 MCG; Start 06/04/17 at 09:00 Folic Acid (Folic Acid) 1 mg DAILY PO Last administered on 06/06/17 09:51; Admin Dose 1 MG; Start 06/04/17 at 09:00 Levetiracetam (Keppra) 750 mg PO Last administered on 06/05/17 17:23; Admin Dose 750 MG; Start 06/04/17 at 11:00 ROBERT EDEN Jun 06, 2017 10:20
[2017-06-06] MEDS: LEVETIRACETAM 750 MG TAB PO SCH ×2 (11:19→16:43)
[2017-06-06] MEDS: traMADol 50 MG TAB PO PRN (16:44)
[2017-06-06 17:30] LABS: PATH REVIEW Y
[2017-06-06] MEDS: SERTRALINE 50 MG TAB PO SCH (20:27)
[2017-06-06] MEDS: LEVETIRACETAM 500 MG TAB PO SCH (20:27)
[2017-06-06] MEDS: clonAZEPAM 0.5 MG TAB PO SCH (20:28)
[2017-06-06] MEDS: TAMSULOSIN (SR) 0.4 MG CAP PO SCH (20:28)
[2017-06-06] MEDS: traZODone 50 MG TAB PO SCH (20:28)
[2017-06-07 02:22] VITALS: BP 129/75; RESP 18
[2017-06-07] MEDS: PANTOPRAZOLE (EC) 40 MG TAB PO SCH ×2 (06:02→17:51)
[2017-06-07 06:26] LABS: BASOPHIL # 0.1 10^3/ul (0.0-0.1); BASOPHILS % 0.6 % (0.0-2.0); EOSINOPHILS # 0.4 10^3/ul (0.0-0.5); EOSINOPHILS % 4.1 % (0.0-7.0); HEMOGLOBIN 10.7 g/dl (14.0-18.0); LYMPHOCYTES # 2.8 10^3/ul (0.8-2.9); LYMPHOCYTES % 30.5 % (15.0-51.0); MEAN CORPUSCULAR HEMOGLOBIN 30.5 pg (29.0-33.0); MEAN CORPUSCULAR HGB CONC 33.4 g/dl (32.0-37.0); MEAN CORPUSCULAR VOLUME 91.2 fl (82.0-101.0); MEAN PLATELET VOLUME 10.8 fl (7.4-10.4); MONOCYTE # 0.8 10^3/ul (0.3-0.9); MONOCYTES % 8.5 % (0.0-11.0); NEUTROPHIL # 5.1 10^3/ul (1.6-7.5); NEUTROPHILS % 55.9 % (39.0-77.0); PLATELET COUNT 212 10^3/UL (140-415); RED BLOOD COUNT 3.51 10^6/ul (4.70-6.10); RED CELL DISTRIBUTION WIDTH 15.8 % (11.5-14.5); WHITE BLOOD COUNT 9.1 10^3/ul (4.8-10.8)
[2017-06-07 07:03] LABS: CALCIUM 9.3 mg/dl (8.4-10.2); CREATININE 3.94 mg/dl (0.61-1.24); POTASSIUM 4.4 mmol/L (3.5-5.1)
[2017-06-07 07:32] VITALS: BP 121/59; RESP 16
--- NOTE | 2017-06-07 08:49 | CONS ---
Date/Time of Note Date/Time of Note DATE: 06/07/17 TIME: 08:47 Assessment/Plan Assessment/Plan Additional Assessment/Plan 1. CKD, with next HD scheduled tomm 2. Await case management eval re OP dialysis center and schedule 3. Severe anemia on admit, stable post transfusion, ? GI eval re repeat endo despite stool ob that is neg and iron studies that are unremarkable. 4. BP well controlled. 5. 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, asx Consultation Date/Type/Reason Admit Date/Time Jun 03, 2017 at 17:04 Type of Consultation: renal Detailed Summary Respiratory: No cough, No shortness of breath Cardiovascular: No chest pain Gastrointestinal: no complaints, other (appetite has improved) Genitourinary: no complaints Exam/Review of Systems Vital Signs Vitals Vital Signs Date Time Temp Pulse Resp B/P Pulse Ox O2 Delivery O2 Flow Rate FiO2 06/07/17 07:32 98.3 69 16 121/59 92 06/03/17 20:30 Room Air Intake and Output 06/06/17 06/06/17 06/07/17 15:00 23:00 07:00 Intake Total 500 ml 920 ml 720 ml Output Total 2500 ml 200 ml Balance -2000 ml 920 ml 520 ml Exam Neck: No jvd Respiratory: clear to auscultation Cardiovascular: regular rate and rhythm Gastrointestinal: soft Extremities: No edema (and no calf tend) Results Result Diagram: 06/07/17 0535 06/07/17 0535 Results 24 hrs Laboratory Tests Test 06/07/17 05:35 White Blood Count 9.1 Red Blood Count 3.51 L Hemoglobin 10.7 L Hematocrit 32.0 L Mean Corpuscular Volume 91.2 Mean Corpuscular Hemoglobin 30.5 Mean Corpuscular Hemoglobin Concent 33.4 Red Cell Distribution Width 15.8 H Platelet Count 212 Mean Platelet Volume 10.8 H Neutrophils % 55.9 Lymphocytes % 30.5 Monocytes % 8.5 Eosinophils % 4.1 Basophils % 0.6 Nucleated Red Blood Cells % 0.0 Neutrophils # 5.1 Lymphocytes # 2.8 Monocytes # 0.8 Eosinophils # 0.4 Basophils # 0.1 Nucleated Red Blood Cells # 0.0 Sodium Level 143 Potassium Level 4.4 Chloride Level 103 Carbon Dioxide Level 25 Anion Gap 19 H Blood Urea Nitrogen 46 #H Creatinine 3.94 H Glucose Level 106 Calcium Level 9.3 Medications Medications Current Medications Allopurinol (Zyloprim) 100 mg DAILY PO Last administered on 06/06/17 09:52; Admin Dose 100 MG; Start 06/04/17 at 09:00 Clonazepam (Klonopin) 1 mg QHS PO Last administered on 06/06/17 20:28; Admin Dose 1 MG; Start 06/03/17 at 21:00 Levetiracetam (Keppra) 1,000 mg QHS PO Last administered on 06/06/17 20:27; Admin Dose 1,000 MG; Start 06/03/17 at 21:00 Multivit/Ca Carb/ B Cmplx/FA/Prenat (Ronda-Joo) 1 tab DAILY PO Last administered on 06/06/17 09:51; Admin Dose 1 TAB; Start 06/04/17 at 09:00 Sertraline HCl (Zoloft) 50 mg QHS PO Last administered on 06/06/17 20:27; Admin Dose 50 MG; Start 06/03/17 at 21:00 Tamsulosin HCl (Flomax) 0.4 mg HS PO Last administered on 06/06/17 20:28; Admin Dose 0.4 MG; Start 06/03/17 at 21:00 Tramadol HCl (Ultram) 50 mg Q6H PRN PO PAIN Last administered on 06/06/17 16: 44; Admin Dose 50 MG; Start 06/03/17 at 17:00 Trazodone HCl (Desyrel) 150 mg QHS PO Last administered on 06/06/17 20:28; Admin Dose 150 MG; Start 06/03/17 at 21:00 Amlodipine Besylate (Norvasc) 5 mg DAILY PO Last administered on 06/05/17 08: 49; Admin Dose 5 MG; Start 06/04/17 at 09:00 Pantoprazole (Protonix Tab) 40 mg 18 PO Last administered on 06/07/17 06:02 ; Admin Dose 40 MG; Start 06/03/17 at 18:00 Ondansetron HCl (Zofran Tab) 4 mg Q6H PRN PO NAUSEA AND/OR VOMITING; Start at 17:00 Acetaminophen (Tylenol Tab) 650 mg Q6H PRN PO PAIN LEVEL 1-3 OR FEVER Last administered on 06/06/17 02:23; Admin Dose 650 MG; Start 06/03/17 at 17:00 Docusate Sodium (Colace) 100 mg Q12H PRN PO CONSTIPATION; Start 06/03/17 at 17: 00 Epoetin Eris (Epogen (Esrd)) 10,000 units TuThSa@17 SC Last administered on 18:41; Admin Dose 10,000 UNITS; Start 06/04/17 at 17:00 Cyanocobalamin (Vitamin B12) 500 mcg DAILY PO Last administered on 06/06/17 09 :52; Admin Dose 500 MCG; Start 06/04/17 at 09:00 Folic Acid (Folic Acid) 1 mg DAILY PO Last administered on 06/06/17 09:51; Admin Dose 1 MG; Start 06/04/17 at 09:00 Levetiracetam (Keppra) 750 mg PO Last administered on 06/06/17 16:43; Admin Dose 750 MG; Start 06/04/17 at 11:00 FRED CARMONA MD Jun 07, 2017 08:49
[2017-06-07] MEDS: MULTIVIT/CA CARB/B CMPLX/FA TAB PO SCH (09:08)
[2017-06-07] MEDS: LEVETIRACETAM 750 MG TAB PO SCH ×2 (09:09→17:52)
[2017-06-07] MEDS: AMLODIPINE 5 MG TAB PO SCH (09:09)
[2017-06-07] MEDS: ALLOPURINOL 100 MG TAB PO SCH (09:09)
[2017-06-07] MEDS: CALCIUM ACETATE 667 MG CAP PO SCH ×2 (12:26→17:51)
[2017-06-07 15:01] VITALS: BP 145/86; RESP 18
--- NOTE | 2017-06-07 15:19 | PN ---
Date/Time of Note Date/Time of Note DATE: 06/07/17 TIME: 15:14 Assessment/Plan VTE Prophylaxis VTE Prophylaxis Intervention: SCD's Lines/Catheters IV Catheter Type (from Nrs): [place] Urinary Cath still in place: No Assessment/Plan Assessment/Plan 66 yo male with 1. Anemia likely secondary to end-stage renal disease, FOBT negative, patient with hx of gastritis but no signs of acute GIB therefore can f/u with outpatient GI as needed Reticulocyte count and LDH are within normal limits Iron, B12 and folate also within normal limits S/p 3 units of pRBC on admission and Hb stable since then, also started on Epo per Nephrology. 2. End stage renal disease, now on HD, s/p permacath placement. Next HD scheduled for tomorrow Per Nephro ok to d/c home once outpatient HD arranged by CM. Nephrology, Dr Anthony following here 3. Hypertension: stable on Norvasc 4. Seizure disorder: Continue home Keppra 5. Depression: Continue Zoloft 6. BPH: Continue Flomax 7. Gastritis, continue PPI bid Prophylaxis: SCDs for DVT ppx, PPI already on for Gastritis Disposition: D/c plan once outpatient HD arranged, PT eval. HD tomorrow Subjective 24 Hr Interval Summary Free Text/Dictation Patient doing well No complaints He wants to go home but we cannot discharge without confirmed arranged outpatient HD Next HD planned for tomorrow Exam/Review of Systems Vital Signs Vitals Vital Signs Date Time Temp Pulse Resp B/P Pulse Ox O2 Delivery O2 Flow Rate FiO2 06/07/17 15:01 97.9 96 18 145/86 94 06/03/17 20:30 Room Air Intake and Output 06/06/17 06/06/17 06/07/17 15:00 23:00 07:00 Intake Total 500 ml 920 ml 720 ml Output Total 2500 ml 200 ml Balance -2000 ml 920 ml 520 ml Exam Constitutional: alert, oriented, well developed Respiratory: clear to auscultation, normal air movement Cardiovascular: nl pulses, regular rate and rhythm Gastrointestinal: non-tender, soft Musculoskeletal: nl extremities to inspection Extremities: normal pulses, other (no edema, clubbing or cyanosis ) Neurological: 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 CUT OFF SAW OPERATOR II-XII intact, nl mental status, nl speech, other (strength at baseline ) Results Result Diagram: 06/07/17 0535 06/07/17 0535 Results 24 hrs Laboratory Tests Test 06/07/17 05:35 White Blood Count 9.1 Red Blood Count 3.51 L Hemoglobin 10.7 L Hematocrit 32.0 L Mean Corpuscular Volume 91.2 Mean Corpuscular Hemoglobin 30.5 Mean Corpuscular Hemoglobin Concent 33.4 Red Cell Distribution Width 15.8 H Platelet Count 212 Mean Platelet Volume 10.8 H Neutrophils % 55.9 Lymphocytes % 30.5 Monocytes % 8.5 Eosinophils % 4.1 Basophils % 0.6 Nucleated Red Blood Cells % 0.0 Neutrophils # 5.1 Lymphocytes # 2.8 Monocytes # 0.8 Eosinophils # 0.4 Basophils # 0.1 Nucleated Red Blood Cells # 0.0 Sodium Level 143 Potassium Level 4.4 Chloride Level 103 Carbon Dioxide Level 25 Anion Gap 19 H Blood Urea Nitrogen 46 #H Creatinine 3.94 H Glucose Level 106 Calcium Level 9.3 Medications Medications Current Medications Allopurinol (Zyloprim) 100 mg DAILY PO Last administered on 06/07/17 09:09; Admin Dose 100 MG; Start 06/04/17 at 09:00 Clonazepam (Klonopin) 1 mg QHS PO Last administered on 06/06/17 20:28; Admin Dose 1 MG; Start 06/03/17 at 21:00 Levetiracetam (Keppra) 1,000 mg QHS PO Last administered on 06/06/17 20:27; Admin Dose 1,000 MG; Start 06/03/17 at 21:00 Multivit/Ca Carb/ B Cmplx/FA/Prenat (Ronda-Joo) 1 tab DAILY PO Last administered on 06/07/17 09:08; Admin Dose 1 TAB; Start 06/04/17 at 09:00 Sertraline HCl (Zoloft) 50 mg QHS PO Last administered on 06/06/17 20:27; Admin Dose 50 MG; Start 06/03/17 at 21:00 Tamsulosin HCl (Flomax) 0.4 mg HS PO Last administered on 06/06/17 20:28; Admin Dose 0.4 MG; Start 06/03/17 at 21:00 Tramadol HCl (Ultram) 50 mg Q6H PRN PO PAIN Last administered on 06/06/17 16: 44; Admin Dose 50 MG; Start 06/03/17 at 17:00 Trazodone HCl (Desyrel) 150 mg QHS PO Last administered on 06/06/17 20:28; Admin Dose 150 MG; Start 06/03/17 at 21:00 Amlodipine Besylate (Norvasc) 5 mg DAILY PO Last administered on 06/07/17 09: 09; Admin Dose 5 MG; Start 06/04/17 at 09:00 Pantoprazole (Protonix Tab) 40 mg PO Last administered on 06/07/17 06:02 ; Admin Dose 40 MG; Start 06/03/17 at 18:00 Ondansetron HCl (Zofran Tab) 4 mg Q6H PRN PO NAUSEA AND/OR VOMITING; Start at 17:00 Acetaminophen (Tylenol Tab) 650 mg Q6H PRN PO PAIN LEVEL 1-3 OR FEVER Last administered on 06/06/17 02:23; Admin Dose 650 MG; Start 06/03/17 at 17:00 Docusate Sodium (Colace) 100 mg Q12H PRN PO CONSTIPATION; Start 06/03/17 at 17: 00 Epoetin Eris (Epogen (Esrd)) 10,000 units TuThSa@17 SC Last administered on 18:41; Admin Dose 10,000 UNITS; Start 06/04/17 at 17:00 Levetiracetam (Keppra) 750 mg PO Last administered on 06/07/17 09:09; Admin Dose 750 MG; Start 06/04/17 at 11:00 ROBERT EDEN Jun 07, 2017 15:19
[2017-06-07] MEDS: EPOETIN 10000 UNITS/1 ML INJ (ESRD) SC SCH (17:51)
[2017-06-07] MEDS: ACETAMINOPHEN 325 MG TAB PO PRN (21:07)
[2017-06-07] MEDS: LEVETIRACETAM 500 MG TAB PO SCH (21:08)
[2017-06-07] MEDS: TAMSULOSIN (SR) 0.4 MG CAP PO SCH (21:08)
[2017-06-07] MEDS: clonAZEPAM 0.5 MG TAB PO SCH (21:08)
[2017-06-07] MEDS: SERTRALINE 50 MG TAB PO SCH (21:08)
[2017-06-07] MEDS: traZODone 50 MG TAB PO SCH (21:08)
[2017-06-07 21:42] VITALS: BP 149/79; RESP 16
[2017-06-08] VITALS (9 sets, daily range): BP systolic 120–144; BP diastolic 63–80; PULSE 86–89; RESP 16–18
[2017-06-08] MEDS: PANTOPRAZOLE (EC) 40 MG TAB PO SCH (06:06)
[2017-06-08 06:49] LABS: BASOPHIL # 0.1 10^3/ul (0.0-0.1); BASOPHILS % 0.5 % (0.0-2.0); EOSINOPHILS # 0.4 10^3/ul (0.0-0.5); EOSINOPHILS % 3.9 % (0.0-7.0); HEMATOCRIT 32.2 % (42.0-52.0); HEMOGLOBIN 10.3 g/dl (14.0-18.0); LYMPHOCYTES # 2.5 10^3/ul (0.8-2.9); LYMPHOCYTES % 26.3 % (15.0-51.0); MEAN CORPUSCULAR HEMOGLOBIN 29.4 pg (29.0-33.0); MONOCYTE # 0.6 10^3/ul (0.3-0.9); MONOCYTES % 6.6 % (0.0-11.0); NEUTROPHIL # 5.9 10^3/ul (1.6-7.5); NEUTROPHILS % 62.3 % (39.0-77.0); PLATELET COUNT 220 10^3/UL (140-415); RED CELL DISTRIBUTION WIDTH 15.9 % (11.5-14.5); WHITE BLOOD COUNT 9.5 10^3/ul (4.8-10.8)
[2017-06-08 07:31] LABS: CALCIUM 9.8 mg/dl (8.4-10.2); CREATININE 4.59 mg/dl (0.61-1.24); POTASSIUM 4.7 mmol/L (3.5-5.1)
--- NOTE | 2017-06-08 07:36 | CONS ---
Date/Time of Note Date/Time of Note DATE: 06/08/17 TIME: 07:34 Assessment/Plan Assessment/Plan Additional Assessment/Plan 1. CKD, stable on HD which is in progress, await case management discussion where he will be dialyzing as OP 2. BP is stable 3. Hct is stable 4. GI follow up ? Consultation Date/Type/Reason Admit Date/Time Jun 03, 2017 at 17:04 Type of Consultation: renal Detailed Summary Respiratory: No cough, No shortness of breath Cardiovascular: No chest pain, No orthopenea Gastrointestinal: no complaints Genitourinary: no complaints Exam/Review of Systems Vital Signs Vitals Vital Signs Date Time Temp Pulse Resp B/P Pulse Ox O2 Delivery O2 Flow Rate FiO2 06/08/17 02:58 97.4 76 16 135/69 94 Intake and Output 06/07/17 06/07/17 06/08/17 15:00 23:00 07:00 Intake Total 680 ml Output Total 600 ml Balance 80 ml Exam Neck: No jvd Respiratory: clear to auscultation Cardiovascular: regular rate and rhythm Gastrointestinal: soft Extremities: edema (and no calf tend) Results Result Diagram: 06/08/17 0555 06/08/17 0555 Results 24 hrs Laboratory Tests Test 06/08/17 05:55 White Blood Count 9.5 Red Blood Count 3.50 L Hemoglobin 10.3 L Hematocrit 32.2 L Mean Corpuscular Volume 92.0 Mean Corpuscular Hemoglobin 29.4 Mean Corpuscular Hemoglobin Concent 32.0 Red Cell Distribution Width 15.9 H Platelet Count 220 Mean Platelet Volume 11.0 H Neutrophils % 62.3 Lymphocytes % 26.3 Monocytes % 6.6 Eosinophils % 3.9 Basophils % 0.5 Nucleated Red Blood Cells % 0.0 Neutrophils # 5.9 Lymphocytes # 2.5 Monocytes # 0.6 Eosinophils # 0.4 Basophils # 0.1 Nucleated Red Blood Cells # 0.0 Sodium Level 142 Potassium Level 4.7 Chloride Level 107 Carbon Dioxide Level 23 Anion Gap 17 H Blood Urea Nitrogen 56 H Creatinine 4.59 H Glucose Level 109 Calcium Level 9.8 Magnesium Level 2.0 Medications Medications Current Medications Allopurinol (Zyloprim) 100 mg DAILY PO Last administered on 06/07/17t 09:09; Admin Dose 100 MG; Start 06/04/17 at 09:00 Clonazepam (Klonopin) 1 mg QHS PO Last administered on 06/07/17 21:08; Admin Dose 1 MG; Start 06/03/17 at 21:00 Levetiracetam (Keppra) 1,000 mg QHS PO Last administered on 06/07/17 21:08; Admin Dose 1,000 MG; Start 06/03/17 at 21:00 Multivit/Ca Carb/ B Cmplx/FA/Prenat (Ronda-Joo) 1 tab DAILY PO Last administered on 06/07/17 09:08; Admin Dose 1 TAB; Start 06/04/17 at 09:00 Sertraline HCl (Zoloft) 50 mg QHS PO Last administered on 06/07/17 21:08; Admin Dose 50 MG; Start 06/03/17 at 21:00 Tamsulosin HCl (Flomax) 0.4 mg HS PO Last administered on 06/07/17 21:08; Admin Dose 0.4 MG; Start 06/03/17 at 21:00 Tramadol HCl (Ultram) 50 mg Q6H PRN PO PAIN Last administered on 06/06/17 16: 44; Admin Dose 50 MG; Start 06/03/17 at 17:00 Trazodone HCl (Desyrel) 150 mg QHS PO Last administered on 06/07/17 21:08; Admin Dose 150 MG; Start 06/03/17 at 21:00 Amlodipine Besylate (Norvasc) 5 mg DAILY PO Last administered on 06/07/17 09: 09; Admin Dose 5 MG; Start 06/04/17 at 09:00 Pantoprazole (Protonix Tab) 40 mg 06,18 PO Last administered on 06/08/17 06:06 ; Admin Dose 40 MG; Start 06/03/17 at 18:00 Ondansetron HCl (Zofran Tab) 4 mg Q6H PRN PO NAUSEA AND/OR VOMITING; Start at 17:00 Acetaminophen (Tylenol Tab) 650 mg Q6H PRN PO PAIN LEVEL 1-3 OR FEVER Last administered on 06/07/17 21:07; Admin Dose 650 MG; Start 06/03/17 at 17:00 Docusate Sodium (Colace) 100 mg Q12H PRN PO CONSTIPATION; Start 06/03/17 at 17: 00 Epoetin Eris (Epogen (Esrd)) 10,000 units TuThSa@17 SC Last administered on 17:51; Admin Dose 10,000 UNITS; Start 06/04/17 at 17:00 Levetiracetam (Keppra) 750 mg PO Last administered on 06/07/17 17:52; Admin Dose 750 MG; Start 06/04/17 at 11:00 FRED CARMONA MD Jun 08, 2017 07:36
[2017-06-08] MEDS: LEVETIRACETAM 750 MG TAB PO SCH (09:11)
[2017-06-08] MEDS: CALCIUM ACETATE 667 MG CAP PO SCH ×2 (09:11→11:55)
[2017-06-08] MEDS: MULTIVIT/CA CARB/B CMPLX/FA TAB PO SCH (09:11)
[2017-06-08] MEDS: ALLOPURINOL 100 MG TAB PO SCH (09:11)
--- NOTE | 2017-06-08 09:11 | PDOCDIS ---
Discharge Instructions DIAGNOSIS Discharge Diagnosis ESRD: New-onset HD HTN MDD CONDITION Patient Condition: Good HOME CARE INSTRUCTIONS: Diet Instructions: 2gm NaSpecial Diet: Renal ACTIVITY: Activity Restrictions: Slowly Increase Activity FOLLOW UP/APPOINTMENTS Follow-up Plan Hemodialysis on Tuesday PCP in 1-2 weeks MARINA MADSEN MD Jun 08, 2017 09:11
[2017-06-08] MEDS: AMLODIPINE 5 MG TAB PO SCH (09:12)
[2017-06-08] MEDS ORDERED: FLUDROCORTISONE 0.1 MG TAB PO SCH (12:00)
--- NOTE | 2017-06-08 22:33 | DS ---
DATE OF ADMISSION: 06/03/2017 DATE OF DISCHARGE: 06/08/2017 DISCHARGE DIAGNOSES: 1. End-stage renal disease: Improved. The patient was admitted, and a kayleen cath was placed, and hemodialysis was initiated. 2. Anemia secondary to chronic kidney disease. 3. 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 The patient is on Norvasc. 4. Seizure disorder: Stable. Continue Keppra. 5. Major depressive disorder: Improved. Continue Zoloft. 6. Benign prostatic hypertrophy: Stable. Continue Flomax. HOSPITAL COURSE: The patient is a 66-year-old male with multiple medical problems, as listed above, who presented to the emergency department for symptomatic anemia, with a hemoglobin of 6.7, as well as initiation of hemodialysis. Overall, the patient was stable, other than his weakness that he reported. The patient was evaluated by Dr. Jerome, who inserted a right internal jugular vein tunneled hemodialysis catheter. The patient underwent the procedure without any difficulty. Subsequently, the patient was transfused 3 units of PRBCs. He was also started on Epogen. His fecal occult blood test was negative, and although the patient has a history of gastritis, there were no signs of active GI bleeding. The patient's iron levels, B12, and folate levels were also within normal limits. His hemoglobin did improve throughout his hospitalization and at the time of discharge, it was stable, at approximately 10.3. The patient was also consulted by Dr. Anthony, who is his regional sales executive. He tolerated hemodialysis without any significant complication. The patient was placed on a Tuesday, Tuesday, Tuesday schedule. There was a desire to attend a dialysis facility in [place] close near his home; however, no dialysis chair was obtained in this facility near his home. So arrangements were made at the nearest closest facility in [place]. The patient and his partner were agreeable and understood that there was a lot of effort taken to try to place the patient at a dialysis center close to his home. This will be revisited in the dialysis center as an outpatient, and the school social worker would help with placing him at a facility within the [facility] closer to his home. The patient understood, as well as his partner and were agreeable to the plan of care. I discussed it with them in person and over the phone on the day of discharge. DISCHARGE CONDITION: Stable. DISPOSITION: Discharged to home. DISCHARGE MEDICATIONS: 1. Flomax 0.4 mg once daily. 2. Amlodipine 5 mg once daily. 3. Clonazepam 1 mg p.o. q.h.s. 4. Zoloft 50 mg once daily. 5. Trazodone 150 mg once daily. 6. Protonix 40 mg once daily. 7. Ronda-Joo 1 tablet once daily. 8. Allopurinol 100 mg once daily. 9. PhosLo 667 mg, 1 tablet before each meal. FOLLOWUP APPOINTMENTS: 1. The patient is to follow up with his primary care physician in 1-2 weeks. 2. The patient is also to follow with his dialysis physician, Dr. Anthony. 3. He is also to attend dialysis on Tuesday, to continue his Tuesday, Tuesday, Tuesday schedule. 4. Lastly, the patient is to follow up with Dr. Jerome for placement of a permanent AV fistula. Dictated By: Anton Cornell MD /[email or web address]/robel /Document#: [id number] ERNESTO
== END 2017-06-08 13:45 | disposition home or self-care (01) | DRG 682 ==
LOC: E/R 13:27 → PP2 17:04
PROVIDERS: ADMIT Internal Medicine; ATTEND Internal Medicine
PROC: 30233N1 Transfusion of Nonautologous Red Blood Cells into Peripheral Vein, Percutaneous Approach (ICD-10-PCS; 2017-06-03)
PROC: 06H033Z Insertion of Infusion Device into Inferior Vena Cava, Percutaneous Approach (ICD-10-PCS; principal; 2017-06-03 16:30)
PROC: 5A1D60Z (ICD-10-PCS; 2017-06-05)
DX: I12.0 Hypertensive chronic kidney disease with stage 5 chronic kidney disease or end stage renal disease (principal); N18.6 End stage renal disease; K76.0 Fatty (change of) liver, not elsewhere classified; N40.0 Benign prostatic hyperplasia without lower urinary tract symptoms; F32.9 Major depressive disorder, single episode, unspecified; D63.1 Anemia in chronic kidney disease; G62.9 Polyneuropathy, unspecified; K29.70 Gastritis, unspecified, without bleeding
CPT/HCPCS: 36415; 36430; 80048; 80053; 81001; 82270; 82607; 82728; 82746; 83540; 83615; 83735; 84100; 85025; 85045; 85610; 85730; 86320; 86704; 86709; 86803; 86850; 86900; 86901; 86920; 87081; 87086; 87340; 90935; 93005; 97116; 97161; 97530; C1750; J1644; J2250; J3010; P9016; Q4081

== ENCOUNTER 2017-07-15 07:50 | Day surgery (SDC) | payer BC ==
[2017-07-15] VITALS (10 sets, daily range): BP systolic 117–134; BP diastolic 57–70; PULSE 68–91; RESP 13–20; Ht 180.3 cm; Wt 92.5 kg
[~2017-07-15] VITALS: Ht 180.3 cm; Wt 92.5 kg
[~2017-07-15 07:50] MED LIST changes: -LEVE100018 PO; -LEVE500S8 PO; -TRAM-40 PO
--- NOTE | 2017-07-15 08:55 | RADRPT ---
PROCEDURE: XR Chest. CLINICAL INDICATION: Preoperative. TECHNIQUE: Single frontal view. COMPARISON: 04/29/2017. FINDINGS: The lungs are clear. There is a tunneled right internal jugular vein dialysis catheter with the tip in the lower superior vena cava. The heart size is normal. There is no pleural effusion. There is no pneumothorax. IMPRESSION: 1. Dialysis catheter in satisfactory position. 2. Otherwise normal chest radiograph. RPTAT: QQ .Gwyn Nixon MD, MD Date Time Electronically viewed and signed by .Gwyn Nixon MD, MD on 07/15/2017 08:55 .R/
[2017-07-15] MEDS ORDERED: LEVE750T70 PO (09:46)
[2017-07-15] MEDS ORDERED: TAMS-14 PO (09:47)
--- NOTE | 2017-07-15 09:48 | HPN ---
Date/Time of Note Date/Time of Note DATE: 07/15/17 TIME: 09:47 Interval H&P Admission Note Pt. seen H&P reviewed: No system changes CHANTALE TREADWELL MD Jul 15, 2017 09:48
[2017-07-15] MEDS ORDERED: LIDOCAINE 1% (MPF) 30 ML INJ ONE (09:56)
[2017-07-15] MEDS ORDERED: HEPARIN 1000 UNITS/ML 10 ML INJ ONE (09:56)
[2017-07-15] MEDS ORDERED: GELATIN SIZE 100 SPONGE ONE (09:56)
[2017-07-15] MEDS ORDERED: THROMBIN 5000 UNIT VIAL ONE (09:56)
[2017-07-15] MEDS ORDERED: FENTAnyl 50 MCG/ML VIAL ONE (10:14)
[2017-07-15] MEDS ORDERED: MIDAZOLAM 1 MG/ML 2 ML INJ ONE (10:14)
[2017-07-15] MEDS ORDERED: ROPIVACAINE 0.5 % 30 ML VIAL ONE (10:15)
[2017-07-15] MEDS ORDERED: morphine 10 MG INJ ONE (11:09)
[2017-07-15] MEDS ORDERED: HEPARIN 1000 UNITS/ML 10 ML INJ IRR ONE (11:49)
--- NOTE | 2017-07-15 11:57 | SIPON ---
Date/Time of Note Date/Time of Note DATE: 07/15/17 TIME: 11:56 Operative Report Preoperative Diagnosis ESRD Postoperative Diagnosis same Operation/Procedure Performed L arm basilic vein transposition - 2nd stage Surgeon see signature line executive marketing assistant none Anesthesia: general Estimated blood loss: 10 - 50 ml's Transfusion Required none Specimen none Grafts/Implants none Complications none CHANTALE TREADWELL MD Jul 15, 2017 11:57
--- NOTE | 2017-07-15 11:57 | SIPON ---
Date/Time of Note Date/Time of Note DATE: 07/15/17 TIME: 11:56 Operative Report Preoperative Diagnosis ESRD Postoperative Diagnosis same Operation/Procedure Performed L arm basilic vein transposition - 2nd stage Surgeon see signature line retail event and sales assistant none Anesthesia: general Estimated blood loss: 10 - 50 ml's Transfusion Required none Specimen none Grafts/Implants none Complications none CHANTALE TREADWELL MD Jul 15, 2017 11:57
--- NOTE | 2017-07-15 11:57 | SIPON ---
Date/Time of Note Date/Time of Note DATE: 07/15/17 TIME: 11:56 Operative Report Preoperative Diagnosis ESRD Postoperative Diagnosis same Operation/Procedure Performed L arm basilic vein transposition - 2nd stage Surgeon see signature line manager assisted living none Anesthesia: general Estimated blood loss: 10 - 50 ml's Transfusion Required none Specimen none Grafts/Implants none Complications none CHANTALE TREADWELL MD Jul 15, 2017 11:57
[2017-07-15] MEDS ORDERED: CEFAZOLIN 1 GM INJ ONE (12:00)
[2017-07-15] MEDS ORDERED: LIDOCAINE 2% (SDV) 5 ML INJ ONE (12:00)
[2017-07-15] MEDS ORDERED: ETOMIDATE 20 MG INJ ONE (12:00)
[2017-07-15] MEDS ORDERED: ONDANSETRON 4 MG INJ ONE (12:01)
--- NOTE | 2017-07-15 12:19 | OPR ---
DATE OF OPERATION: 07/15/2017 PREOPERATIVE DIAGNOSIS: End-stage renal disease. POSTOPERATIVE DIAGNOSIS: End-stage renal disease. PROCEDURE PERFORMED: Left arm basilic vein transposition second stage. SURGEON: Chantale Jerome MD ANESTHESIA: LMA with scalene block. ESTIMATED BLOOD LOSS: 50 mL. COMPLICATIONS: There were no intraprocedural complications. INDICATIONS: This is a 66-year-old gentleman. He has end-stage renal disease, he has a right IJ Pe rm-A-Cath. He has a left arm basilic vein AV fistula that was created several months ago, it is mat ured and I brought him in today for superficialization of the vein. PROCEDURE: The patient was brought to the operating room and placed on the table in supine position . After induction of general endotracheal anesthesia and a scalene block, left arm was prepped and draped in the usual sterile fashion. I began by making 2 incisions that began at the elbow and exte nded up towards the axilla, 2 incisions over the medial aspect of the upper arm over the basilic vei n. I dissected down through the subcutaneous tissue using electrocautery and I then carefully disse cted out the basilic vein from the elbow to the axilla ligating all of the side branches with either 2 or 3-0 silk ties and dividing them. It was a good size vein, healthy, good thrill throughout. O nce it was skeletonized from the elbow just above the arterial anastomosis to the axilla, I transect ed the vein about 3 cm distal to the arterial anastomosis at the elbow after clamping the vein right above the arterial anastomosis. I transected it obliquely. I then tunneled the vein in a very sup erficial position, going right out over the biceps. I used an aortic clamp to create the tunnel. I then reanastomosed to the vein using 6-0 Prolene sutures in running standard vascular surgical [facility] ion. There was a good thrill. There was good hemostasis. The vein was easily palpable and appeare d to be in very good position for dialysis access. I then closed the skin incisions in 2 layers usi ng an inner layer of 3-0 Vicryl and an outer layer of 4-0 Monocryl subcuticular suture. Sterile sisi ssings were applied and the patient was then extubated in the operating room and transferred to the recovery room in stable condition. He tolerated the procedure well without any complications. Dictated By: CHANTALE STANFORD/FOZIA Conf#: [id number] DID#: [id number] CC: LIBORIO GUTIÉRREZ MD; FRED CARMONA MD;*EndCC*
--- NOTE | 2017-07-15 12:19 | OPR ---
DATE OF OPERATION: 07/15/2017 PREOPERATIVE DIAGNOSIS: End-stage renal disease. POSTOPERATIVE DIAGNOSIS: End-stage renal disease. PROCEDURE PERFORMED: Left arm basilic vein transposition second stage. SURGEON: Chantale Jerome MD ANESTHESIA: LMA with scalene block. ESTIMATED BLOOD LOSS: 50 mL. COMPLICATIONS: There were no intraprocedural complications. INDICATIONS: This is a 66-year-old gentleman. He has end-stage renal disease, he has a right IJ Pe rm-A-Cath. He has a left arm basilic vein AV fistula that was created several months ago, it is mat ured and I brought him in today for superficialization of the vein. PROCEDURE: The patient was brought to the operating room and placed on the table in supine position . After induction of general endotracheal anesthesia and a scalene block, left arm was prepped and draped in the usual sterile fashion. I began by making 2 incisions that began at the elbow and exte nded up towards the axilla, 2 incisions over the medial aspect of the upper arm over the basilic vei n. I dissected down through the subcutaneous tissue using electrocautery and I then carefully disse cted out the basilic vein from the elbow to the axilla ligating all of the side branches with either 2 or 3-0 silk ties and dividing them. It was a good size vein, healthy, good thrill throughout. O nce it was skeletonized from the elbow just above the arterial anastomosis to the axilla, I transect ed the vein about 3 cm distal to the arterial anastomosis at the elbow after clamping the vein right above the arterial anastomosis. I transected it obliquely. I then tunneled the vein in a very sup erficial position, going right out over the biceps. I used an aortic clamp to create the tunnel. I then reanastomosed to the vein using 6-0 Prolene sutures in running standard vascular surgical [facility] ion. There was a good thrill. There was good hemostasis. The vein was easily palpable and appeare d to be in very good position for dialysis access. I then closed the skin incisions in 2 layers usi ng an inner layer of 3-0 Vicryl and an outer layer of 4-0 Monocryl subcuticular suture. Sterile sisi ssings were applied and the patient was then extubated in the operating room and transferred to the recovery room in stable condition. He tolerated the procedure well without any complications. Dictated By: CHANTALE STANFORD/FOZIA Conf#: [id number] DID#: [id number] CC: LIBORIO GUTIÉRREZ MD; FRED CARMONA MD;*EndCC*
[2017-07-15] MEDS ORDERED: HYDROmorphONE (0.2 MG/ML) 10ML SYG IV PRN ×3 (12:30)
[2017-07-15] MEDS ORDERED: FENTAnyl 50 MCG/ML VIAL IV PRN ×3 (12:30)
[2017-07-15] MEDS ORDERED: hydrALAzine 20 MG INJ IV PRN (12:30)
[2017-07-15] MEDS ORDERED: ONDANSETRON 4 MG INJ IV PRN (12:30)
[2017-07-15] MEDS ORDERED: HYDROmorphONE (0.2 MG/ML) 10ML SYG IV ONE (12:31)
--- NOTE | 2017-07-15 13:50 | RADRPT ---
Vent Rate: 74 bpm RR Interval: [address] Interval: 140 msec QRS Duration: 86 msec QT Interval: 376 msec QTC Interval: 417 msec P-R-T [place]: 36 - 62 - 68 degrees Normal sinus rhythm Normal ECG Electronically Signed By: Kal Hand [id number]
--- NOTE | 2017-07-15 13:50 | RADRPT ---
Vent Rate: 74 bpm RR Interval: 0 msec [place] Interval: 140 msec QRS Duration: 86 msec QT Interval: 376 msec QTC Interval: 417 msec P-R-T [place]: 36 - 62 - 68 degrees Normal sinus rhythm Normal ECG Electronically Signed By: Kal Hand [id number]
--- NOTE | 2017-07-15 13:50 | RADRPT ---
Vent Rate: 74 bpm RR Interval: 0 msec [place] Interval: 140 msec QRS Duration: 86 msec QT Interval: 376 msec QTC Interval: 417 msec P-R-T [place]: 36 - 62 - 68 degrees Normal sinus rhythm Normal ECG Electronically Signed By: Kal Hand [id number]
== END 2017-07-15 14:05 | disposition home or self-care (01) ==
LOC: SDS 07:50 → SUR 07:50
PROVIDERS: ATTEND Surgery Vascular Surgery
DX: I12.0 Hypertensive chronic kidney disease with stage 5 chronic kidney disease or end stage renal disease (principal); N18.6 End stage renal disease; E78.5 Hyperlipidemia, unspecified; E66.9 Obesity, unspecified; Z68.28 Body mass index [BMI] 28.0-28.9, adult
CPT/HCPCS: 36819; 71010; 80053; 85025; 85610; 85730; 93005; J0690; J1170; J1644; J2250; J2270; J2405; J2795; J3010

== ENCOUNTER 2018-07-27 12:43 | Inpatient (IN) | END 2018-08-01 18:15 | disposition home or self-care (01) | DRG 871 ==

== ENCOUNTER 2018-10-09 06:30 | Day surgery (SDC) | payer BC ==
[~2018-10-09] VITALS: Ht 180.3 cm; Wt 95.2 kg
[~2018-10-09 06:30] MED LIST changes: -ALLO100T PO; -AMLO5TAB4 PO; +CALC0.5C10 PO; +CIPR500T4 PO; +FOLI-49 PO; +LEVE750T70 PO; +MECL-77 PO; +MELA1TAB15 PO; +SVL800C PO; +TRAM50TA PO
[2018-10-09] MEDS ORDERED: LEVE750T70 PO (07:18)
[2018-10-09] MEDS ORDERED: TRAZ150T65 PO (07:18)
[2018-10-09] MEDS ORDERED: PANT40TA3 PO (07:18)
[2018-10-09] MEDS ORDERED: CLON-412 PO (07:19)
[2018-10-09] MEDS ORDERED: TAMS-14 PO (07:19)
[2018-10-09] MEDS ORDERED: SERT50TA6 PO (07:19)
[2018-10-09] MEDS ORDERED: CHOL10009 PO (07:20)
[2018-10-09] MEDS ORDERED: NEPH PO (07:20)
[2018-10-09] MEDS ORDERED: CALC0.5C10 PO (07:21)
[2018-10-09] MEDS ORDERED: SEVE800T7 PO (07:21)
[2018-10-09 07:50] VITALS: Ht 180.3 cm; Wt 95.2 kg
[2018-10-09 07:51] VITALS: BP 116/59; PULSE 102; RESP 18
--- NOTE | 2018-10-09 08:57 | SIPON ---
Date/Time of Note Date/Time of Note DATE: 10/09/18 TIME: 08:55 Operative Report Preoperative Diagnosis L arm AVF with weak thrill Postoperative Diagnosis same Operation/Procedure Performed L arm AV fistulagram, PTV basilic vein inflow stenosis (7x40 to 16 geetha, 60% to 0%) Surgeon see signature line bilingual administrative assistant none Anesthesia: other Estimated blood loss: minimal Transfusion Required none Specimen none Grafts/Implants none Complications none CHANTALE TREADWELL MD Oct 09, 2018 08:57
[2018-10-09] MEDS ORDERED: HEPARIN 1000 UNITS/NS (A-LINE) 1,000 ML ONE (09:04)
[2018-10-09] MEDS ORDERED: IODIXANOL LOCM 100 ML BTL ONE (09:04)
[2018-10-09] MEDS ORDERED: LIDOCAINE 1% (MDV) 20 ML INJ ONE (09:04)
[2018-10-09 09:12] VITALS: BP 110/70; PULSE 78; RESP 16
--- NOTE | 2018-10-09 11:31 | OPR ---
DATE OF OPERATION: 10/09/2018 PREOPERATIVE DIAGNOSIS: Left arm arteriovenous fistula malfunction. POSTOPERATIVE DIAGNOSIS: Left arm arteriovenous fistula malfunction. PROCEDURE PERFORMED: Left arm arteriovenous fistulogram with percutaneous venoplasty of the basilic vein inflow. SURGEON: Chantale Jerome MD ANESTHESIA: Local anesthesia. ESTIMATED BLOOD LOSS: Minimal. COMPLICATIONS: No intraprocedural complications. INDICATIONS: This is a 67-year-old gentleman. He has end-stage renal disease on hemodialysis for ab out a year. He has a left arm brachiobasilic AV fistula. He had some problems with it a few months ago, developed a large hematoma. I had to replace a Perm-A-Cath for a while. He has actually been d ialyzing through the fistula, but there is a weak thrill and I was concerned there may be an issue wi th the inflow, so I brought him in today for a fistulogram and possible intervention. DESCRIPTION OF PROCEDURE: Patient was brought to the operating room and placed on the table in a sup ine position. Left arm was prepped and draped in the usual sterile fashion. Using ultrasound to ins ufflate the fistula, I can see an area of stenosis about 33 cm above the arterial anastomosis at the elbow. So I punctured in the upper arm, infiltrated over the basilic vein in the upper arm using abo ut 5 mL of 1% Xylocaine, using micropuncture needle to enter the vein under ultrasound guidance point ing towards the elbow. I then advanced an 0.018 wire through the needle into vein, and a micropunctu re sheath was advanced over the wire into the vein and I then did a fistulogram with proper compressi on views which showed the arterial anastomosis is widely patent. There is about a 60% stenosis of th e basilic vein, 3 or 4 cm above the arterial anastomosis. The rest of the basilic vein is excellent in size. Central veins were all patent. There is no other obstruction, so I advanced a Glidewire th rough the micropuncture sheath and across the stenotic segment of the basilic vein. I advanced the w shanice into the brachial artery and exchanged the micropuncture sheath for a 5-[place] sheath over the wi re then used a 7 x 40 balloon. I angioplastied the stenotic segment of the basilic vein and inflated to 16 atmospheres. There was completion venography showing no significant residual stenosis. I was happy with the result. I removed all the catheter sheaths and wires, put a 4-0 Monocryl pursestring suture on the puncture site. Sterile dressing was applied. The patient was discharged home in stab le condition. He can use the fistula today. His partner is a nurse and he is going to remove the st itch in 2 days. I discussed that with him. I will see him back in my office again in 6 weeks. Dictated By: CHANTALE STANFORD/FOZIA Conf#: [id number] DID#: [id number] CC: FRED CARMONA MD;*EndCC*
== END 2018-10-09 09:45 | disposition home or self-care (01) ==
LOC: SDS 06:30
PROVIDERS: ATTEND Surgery Vascular Surgery
DX: T82.898A Other specified complication of vascular prosthetic devices, implants and grafts, initial encounter (principal); Y84.1 Kidney dialysis as the cause of abnormal reaction of the patient, or of later complication, without mention of misadventure at the time of the procedure; I12.0 Hypertensive chronic kidney disease with stage 5 chronic kidney disease or end stage renal disease; N18.6 End stage renal disease
CPT/HCPCS: 36902; C1725; J1644; Q9967